=== PATIENT | male | born 1950 | race African-American/Black ===

== ENCOUNTER 2018-04-09 13:18 | Emergency (ER) | payer MEDICARE, MEDICAID ==
[~2018-04-09 13:18] MED LIST: ISOVUE-370 76%-LOCM 1 ML ONE
--- NOTE | 2018-04-09 14:08 | RAD ---
PORTABLE CHEST ONE VIEW: 04/09/2018 1:38 p.m. HISTORY: Dizziness after dialysis. Upper abdominal pain. COMPARISON: 03/18/2018 FINDINGS: The heart size is enlarged. There is mild prominence of the pulmonary vascularity without lobar cons olidation, pneumothoraces, stephy pulmonary edema, or large effusions. A vascular stent is seen in th e right axilla. POS: [facility]
[2018-04-09 14:09] LABS: Hemoglobin 10.6 g/dL (14.0-18.0); Mean Corpuscular HGB CONC 29.6 g/dL (32.0-36.0); Mean Corpuscular Hemoglobin 23.8 pg (27.0-31.0); Mean Corpuscular Volume 80.5 fL (78.0-98.0); Mean Platelet Volume 10.1 fL (7.4-10.4); Platelet Count 172 thou/uL (130-400); RBC Distribution Width 14.2 % (11.5-14.5); Red Blood Cell (RBC) Count 4.43 mill/uL (4.70-6.10); White Blood Cell (WBC) Count 4.1 thou/uL (4.8-10.8)
[2018-04-09 14:10] LABS: #Basophils 0.1 thou/uL (0.0-0.2); #Eosinphils 0.2 thou/uL (0.0-0.7); #Lymphocytes 1.2 thou/uL (1.20-3.40); #Monocytes 0.2 thou/uL (0.11-0.59); #Neutrophils 2.5 thou/uL (1.40-6.50); %Basophils 1.2 % (0.0-1.0); %Eosinophils 3.9 % (0.0-10.0); %Lymphocytes 29.8 % (21.0-51.0); %Monocytes 5.6 % (0.0-10.0); %Neutrophils 59.5 % (42.0-75.0)
[2018-04-09 14:26] LABS: Eosinophils 3 % (0-10); Hypochromia SLIGHT = 6-15 cells (100X) (0-5/hpf); Lymphocytes 35 % (21-51); MDiff Complete? YES; Monocytes 6 % (0-10); Neutrophil 56 % (42-75)
[2018-04-09 14:31] LABS: CKMB 0.7 ng/mL (0-6.6); Troponin I 0.033 ng/mL (< 0.028)
[2018-04-09 14:33] LABS: ALT (SGPT) 12 U/L (8-55); AST (SGOT) 14 U/L (5-34); Albumin 3.5 g/dL (3.4-4.8); Alkaline Phosphatase 108 U/L (40-150); Anion Gap 12 mmol/L (10-20); BUN (Urea Nitrogen) 15 mg/dL (8.4-25.7); Bilirubin, Total 0.4 mg/dL (0.2-1.2); Calc. Creatinine Clearance 0 mL/min (70-130); Calcium 8.6 mg/dL (7.8-10.44); Carbon Dioxide 27 mmol/L (23-31); Chloride 102 mmol/L (98-107); Estimated GFR-MDRD 18; Globulin 3.3 g/dL (2.4-3.5); Glucose 238 mg/dL (80-115); Potassium 4.1 mmol/L (3.5-5.1); Protein, Total 6.8 g/dL (5.8-8.1); Sodium 137 mmol/L (136-145)
--- NOTE | 2018-04-09 17:00 | CT ---
CTA CHEST WITH IV CONTRAST AND 3D POST PROCESSING: CTA ABDOMEN WITH IV CONTRAST AND 3D POST PROCESSING: HISTORY: Epigastric pain. Near syncope. Exam requested to evaluate for aortic dissection. FINDINGS: The thoracoabdominal aorta demonstrates good contrast opacification without evidence of aneurysm or d issection. Vascular calcifications are present. There is also good contrast opacification in the pu lmonary arterial vasculature without filling defects to suggest pulmonary embolism. No pleural or pericardial effusions are seen. No pneumothoraces or lung masses are identified. Ther e are mild patchy infiltrates in the left lower lung. There are dependent changes in the lung bases. There is a 15 mm cyst in the liver. No free air or free fluid is noted in the abdomen. Bilateral re nal cysts are present. The pancreas and adrenal glands are normal. There is a small calcified galls tone. There are degenerative changes in the thoracolumbar spine. IMPRESSION: 1. No CT evidence of aortic aneurysm/dissection or pulmonary embolism. 2. Cholelithiasis. 3. Mild infiltrates in the left lower lung. 4. Hepatic cyst. 5. Bilateral renal cysts. POS: [facility]
== END 2018-04-09 17:33 | disposition home or self-care (01) ==
LOC: ERS 13:18
DX: R55 Syncope and collapse (principal); I12.0 Hypertensive chronic kidney disease with stage 5 chronic kidney disease or end stage renal disease; N18.6 End stage renal disease; I48.91 Unspecified atrial fibrillation; E11.9 Type 2 diabetes mellitus without complications; Z99.2 Dependence on renal dialysis; F17.220 Nicotine dependence, chewing tobacco, uncomplicated; Z79.899 Other long term (current) drug therapy; Z79.82 Long term (current) use of aspirin
CPT/HCPCS: 36415; 71045; 71275; 80053; 82553; 83880; 84484; 85025; 93005

== ENCOUNTER 2018-04-22 10:42 | Emergency (ER) | payer MEDICARE, MEDICAID ==
[2018-04-22 12:01] LABS: Troponin I 0.037 ng/mL (< 0.028)
--- NOTE | 2018-04-22 12:22 | ULT ---
DOPPLER VENOUS ULTRASOUND OF THE LEFT UPPER EXTREMITY: Indication: History of left upper extremity tingling. Technique: Grayscale, color doppler, and spectral doppler images were obtained of the venous structur es of the left upper extremity and left internal jugular vein, left subclavian vein, left axillary ve in, left brachial vein, left basilic vein, left cephalic vein, left ulnar and left radial vein. FINDINGS: There is normal flow, compression, and augmentation seen within the venous structures left upper extr emity. IMPRESSION: No evidence of deep venous thrombosis within the left upper extremity. POS: [facility]
[2018-04-22] MEDS ORDERED: Carvedilol 25 MG TAB PO SCH (13:30)
--- NOTE | 2018-04-22 14:44 | ULT ---
DUPLEX ARTERIAL EVALUATION OF THE LEFT UPPER EXTREMITY: Date: 04/22/18 INDICATION: Left arm tingling. COMPARISON: None. FINDINGS: There is some mild atherosclerotic plaque involving the left common carotid artery. Appropriate anteg rade waveform seen over the left common carotid artery. Biphasic antegrade waveform is seen within th e left subclavian artery. Biphasic appearing waveform is seen within the left axillary artery, left b rachial artery, left radial artery, and left ulnar artery. IMPRESSION: Antegrade biphasic waveform seen within the arterial structures of the left upper extremity. POS: [facility]
[2018-04-22 14:47] LABS: Troponin I 0.046 ng/mL (< 0.028)
--- NOTE | 2018-04-23 16:53 | EKG ---
Test Reason : L ARM PAIN Blood Pressure : / mmHG Vent. Rate : 062 BPM Atrial Rate : 062 BPM P-R Int : 134 ms QRS Dur : 082 ms QT Int : 460 ms P-R-T Axes : 048 024 061 degrees QTc Int : 466 ms Normal sinus rhythm Normal ECG Confirmed by ARSLAN ALFARO, DR. Smyth ([id number]) on 04/23/2018 4:52:50 PM Referred By: DAIANA Confirmed By:DR. Haja MCDANIELS MD
== END 2018-04-22 16:04 | disposition home or self-care (01) ==
LOC: ERS 10:42
DX: R20.2 Paresthesia of skin (principal); I48.91 Unspecified atrial fibrillation; E11.9 Type 2 diabetes mellitus without complications; I10 Essential (primary) hypertension; F17.220 Nicotine dependence, chewing tobacco, uncomplicated; Z79.899 Other long term (current) drug therapy; Z79.82 Long term (current) use of aspirin
CPT/HCPCS: 36415; 93005; 93923

== ENCOUNTER 2018-04-26 22:30 | Emergency (ER) | payer MEDICARE, MEDICAID ==
--- NOTE | 2018-04-26 23:23 | RAD ---
RADIOGRAPH CHEST 1 VIEW: Date: 04/26/18 Time: 10:39 p.m. HISTORY: 68-year-old male with hypertension. COMPARISON: 04/22/18. FINDINGS: Borderline or mild cardiomegaly. No stephy pulmonary alveolar edema. Nonspecific increased attenuation in the retrocardiac portion of the left lower lobe. No pneumothorax. No major interval change. A por tion of a right brachial vascular stent is visualized again. IMPRESSION: 1. Borderline or mild cardiomegaly without overt congestive heart failure. 2. Nonspecific mild patchy pulmonary densities in the left lower lobe. CHRISTIAN [] POS: [facility]
[2018-04-26 23:54] LABS: Troponin I 0.041 ng/mL (< 0.028)
== END 2018-04-27 00:29 | disposition home or self-care (01) ==
LOC: ERS 22:30
DX: I10 Essential (primary) hypertension (principal); K59.00 Constipation, unspecified; I48.91 Unspecified atrial fibrillation; E11.9 Type 2 diabetes mellitus without complications; F17.220 Nicotine dependence, chewing tobacco, uncomplicated; Z79.899 Other long term (current) drug therapy; Z79.891 Long term (current) use of opiate analgesic; Z79.82 Long term (current) use of aspirin
CPT/HCPCS: 36415; 71045; 93005

== ENCOUNTER 2018-05-07 13:11 | Inpatient (IN) | payer MEDICARE, MEDICAID ==
[2018-05-07] MEDS ORDERED: Diltiazem 125 MG in Sodium Chloride 0.9% 100 ML IVPB SCH (14:00)
[2018-05-07] MEDS ORDERED: Diltiazem 125 MG/25 ML ONE (14:04)
[2018-05-07 14:17] LABS: #Eosinphils 0.1 thou/uL (0.0-0.7); #Lymphocytes 1.4 thou/uL (1.20-3.40); #Monocytes 0.3 thou/uL (0.11-0.59); #Neutrophils 3.8 thou/uL (1.40-6.50); %Basophils 0.6 % (0.0-1.0); %Eosinophils 2.5 % (0.0-10.0); %Lymphocytes 24.2 % (21.0-51.0); %Monocytes 5.1 % (0.0-10.0); %Neutrophils 67.7 % (42.0-75.0); Hemoglobin 10.9 g/dL (14.0-18.0); Mean Corpuscular HGB CONC 30.3 g/dL (32.0-36.0); Mean Corpuscular Hemoglobin 24.3 pg (27.0-31.0); Mean Corpuscular Volume 80.2 fL (78.0-98.0); Mean Platelet Volume 10.9 fL (7.4-10.4); Platelet Count 169 thou/uL (130-400); Red Blood Cell (RBC) Count 4.48 mill/uL (4.70-6.10); White Blood Cell (WBC) Count 5.6 thou/uL (4.8-10.8)
[2018-05-07 14:27] LABS: ALT (SGPT) Less than 7 U/L (8-55); AST (SGOT) 7 U/L (5-34); Albumin 3.5 g/dL (3.4-4.8); Alkaline Phosphatase 111 U/L (40-150); Anion Gap 14 mmol/L (10-20); BUN (Urea Nitrogen) 13 mg/dL (8.4-25.7); Bilirubin, Total 0.5 mg/dL (0.2-1.2); CK (CPK) 90 U/L (30-200); Calc. Creatinine Clearance 0 mL/min (70-130); Calcium 8.8 mg/dL (7.8-10.44); Carbon Dioxide 23 mmol/L (23-31); Chloride 102 mmol/L (98-107); Estimated GFR-MDRD 18; Globulin 3.3 g/dL (2.4-3.5); Glucose 200 mg/dL (80-115); Potassium 3.5 mmol/L (3.5-5.1); Protein, Total 6.8 g/dL (5.8-8.1); Sodium 135 mmol/L (136-145)
[2018-05-07 14:32] LABS: Troponin I 0.054 ng/mL (< 0.028)
[2018-05-07 17:01] VITALS: BMI 34.7
[2018-05-07] MEDS ORDERED: Dextrose 50% Abboject 50 ML SYRINGE SLOW IVP PRN (17:33)
[2018-05-07] MEDS ORDERED: Dextrose 5% in Water 1,000 ML IV PRN (17:33)
[2018-05-07] MEDS ORDERED: Ondansetron ODT 4 MG TAB PO PRN (17:33)
[2018-05-07] MEDS ORDERED: HumaLOG 300 UNITS/3 ML VIAL SC PRN ×2 (17:33)
[2018-05-07] MEDS ORDERED: Calcium Carbonate 500 MG ChewTAB PO PRN (17:33)
[2018-05-07] MEDS ORDERED: Acetaminophen 325 MG TAB PO PRN (17:33)
[2018-05-07] MEDS: Simvastatin 20 MG TAB PO SCH (21:26)
[2018-05-07] MEDS: Heparin 5,000 UNITS/ML VIAL SC SCH (21:26)
[2018-05-07] MEDS: Carvedilol 25 MG TAB PO SCH (21:27)
--- NOTE | 2018-05-07 22:01 | HP ---
PRIMARY CARE PHYSICIAN: Dr. Madsen. CHIEF COMPLAINT: Elevated blood pressure and heart rate and almost passed out. HISTORY OF PRESENT ILLNESS: Mr. Kramer is a very pleasant 68-year-old gentleman that has a history of end-stage renal disease on hemodialysis as well as hypertension, diabetes mellitus and one previous episode of atrial fibrillation about 2 months ago. He was on dialysis today when the dialysis was ju st about to be completed. About 30 minutes prior to completion, he started to feel dizzy and lighthe aded. He says that he came off the machine and his blood pressure and heart rate started to go up. The EMS noted or the medical van that he gets transferred on noted that his blood pressure was as hig h as 242/99, but then went down to around 170 to 180 systolic. The patient says that he waited for a minute after being taken off the machine. He still felt a bit weak, but he got in the van to be tra nsported home. He says that he was almost about four miles from his house when he started getting si ck and had to basically laid down in the seat. This was when they turned around and took him to the emergency room. When he got to the ER, he was found to be in atrial fibrillation with rapid ventricu lar response with a heart rate of around 130. He was started on Cardizem IV and actually while he wa s in the ER after only about an hour or so he converted back into sinus rhythm. He is being admitted for further evaluation. The patient denies any headache. He does complain of some headache off and on, but no shortness of breath, no nausea, no vomiting. He was recently diagnosed with newly detect ed atrial fibrillation back in February of this year. It was very short lived and was attributed to a respiratory infection that he was having at that time. He was started on Cardizem, but no anticoagul ation and discharged home. I reviewed the medications with him as well as called Dr. Madsen on t he phone and it appears as if the patient had been prescribed the Cartia XT, he did come for 1 hospit al followup, but did not get the Cartia XT refilled. It is unclear whether or not he had been actual ly taking it. REVIEW OF SYSTEMS: All systems were reviewed and are negative except for that mentioned in the histo ry of present illness. PAST MEDICAL HISTORY: Significant for end-stage renal disease, gout, hypertension, diabetes mellitus type 2, atrial fibrillation, and coronary artery disease. PAST SURGICAL HISTORY: He had the right first toe amputation. FAMILY HISTORY: No history of any inheritable diseases. SOCIAL HISTORY: He is single, has 3 children. He is a nonsmoker, nondrinker. He lives alone. His daughter Bowen kramer is his surrogate decision maker and he would like to be a [employer]. He normally gets around at home with a walker. ALLERGIES: PENICILLIN and he says IV DYE. MEDICATIONS: Include carvedilol 25 mg twice a day, Renvela 800 mg 3 tablets 3 times a day, naproxen p.r.n., simvastatin 10 mg daily, aspirin 81 mg daily, clonidine 0.1 mg daily, Zetia 10 mg daily, Sadaf Lax 17 grams daily, and Levemir insulin 50-55 units daily as well as a Humalog sliding scale and Cart ia XT 180 mg daily. However, unsure whether or not he has been taking this. PHYSICAL EXAMINATION: GENERAL: He is alert and oriented. He appears to be in no acute distress. He is well-developed and well-nourished. VITAL SIGNS: Currently his blood pressure is approximately 153/70, heart rate is in the 50s, respira tory rate of 16, and he is afebrile. HEENT: Pupils are equal, round, and reactive. Extraocular muscles are intact. His sclerae are anic teric. Throat: There is no erythema, no exudates. NECK: There is no adenopathy, no bruits. LUNGS: Clear to auscultation. There is no wheezing, no rales, no rhonchi. CARDIOVASCULAR: His heart rate is regular. There was a normal S1 and S2. There is no S3 or S4. No murmurs, clicks, no rubs. ABDOMEN: Obese, it is soft, it is nontender, nondistended. Positive for bowel sounds. There is no rebound, no guarding. EXTREMITIES: He has got trace pedal edema. There is no calf tenderness. There is trace edema, no j oint effusions or warmth. NEUROLOGICALLY: His cranial nerves II-XII are intact. Muscle strength is 5/5 in both the upper and lower extremities. SKIN/INTEGUMENT: There are no skin changes. No rash. He does have some hammertoe deformities that is on both feet and capillary refill is slightly diminished and his pulses are diminished in the dors john pedis and posterior tibial. LABORATORY DATA: EKG is atrial fibrillation, the heart rate is in the 120s to 128. He has some volt age criteria for LVH. This is by my reading. Lab work: Sodium is 135, potassium 3.5, chloride is 1 02, CO2 is 23, BUN of 13, creatinine of 4.1, glucose is 200. ProBNP was 1388. White blood cell coun t 5.6, hemoglobin 10.9, hematocrit is 35.9, platelet count is 169 and again conversation was made wit h the patient's primary care physician. ASSESSMENT: This is a pleasant 68-year-old gentleman who presents to the emergency room with atrial fibrillation with rapid ventricular response, which has quickly converted once again and he was sympt omatic with this. So therefore, 1. Atrial fibrillation. He will be monitored on telemetry. We will restart the Cardizem drip if ne eded and consider starting him on the Cartia XT once his heart rate comes above 50. We will also con [facility] to see what their recommendations are. On his last visit, he was not deemed a good c andidate for anticoagulation due to the very short and isolated nature of the atrial fibrillation; ho wever, since this is the second episode this may change. We will defer this up to our Cardiology col leagues or to his primary digital developer, Dr. Booker. 2. Hypertension. His blood pressure medications have been reconciled over the phone with Dr. Jaleesa shine. We will restart these including the carvedilol, Catapres, and Cartia XT and adjusted as needed . 3. Diabetes mellitus. We will continue his usual home medications including the Levemir and Humalog as well as a sliding scale insulin. 4. End-stage renal disease. We will need to consult his shared services manager for maintenance hemodialysis. 5. Coronary artery disease. This appears to be stable and no changes in medications indicated at th is time.
[2018-05-08] MEDS: hydrALAZINE 20 MG/ML VIAL SLOW IVP PRN (04:29)
[2018-05-08 06:20] LABS: Anion Gap 13 mmol/L (10-20); BUN (Urea Nitrogen) 19 mg/dL (8.4-25.7); Calc. Creatinine Clearance 22 mL/min (70-130); Calcium 8.1 mg/dL (7.8-10.44); Carbon Dioxide 24 mmol/L (23-31); Chloride 102 mmol/L (98-107); Estimated GFR-MDRD 13; Glucose 94 mg/dL (80-115); Potassium 3.5 mmol/L (3.5-5.1); Sodium 135 mmol/L (136-145)
[2018-05-08 06:23] LABS: #Eosinphils 0.2 thou/uL (0.0-0.7); #Lymphocytes 1.9 thou/uL (1.20-3.40); #Monocytes 0.4 thou/uL (0.11-0.59); %Basophils 0.5 % (0.0-1.0); %Eosinophils 4.3 % (0.0-10.0); %Lymphocytes 33.6 % (21.0-51.0); %Monocytes 6.8 % (0.0-10.0); %Neutrophils 54.8 % (42.0-75.0); Hemoglobin 10.4 g/dL (14.0-18.0); Mean Corpuscular HGB CONC 30.9 g/dL (32.0-36.0); Mean Corpuscular Hemoglobin 24.5 pg (27.0-31.0); Mean Corpuscular Volume 79.5 fL (78.0-98.0); Mean Platelet Volume 11.5 fL (7.4-10.4); Platelet Count 151 thou/uL (130-400); RBC Distribution Width 15.1 % (11.5-14.5); Red Blood Cell (RBC) Count 4.23 mill/uL (4.70-6.10); White Blood Cell (WBC) Count 5.5 thou/uL (4.8-10.8)
[2018-05-08] MEDS: Sevelamer Carbonate 800 MG TAB PO SCH ×3 (08:25→17:04)
[2018-05-08] MEDS: Carvedilol 25 MG TAB PO SCH ×2 (08:26→20:08)
[2018-05-08] MEDS: Heparin 5,000 UNITS/ML VIAL SC SCH ×3 (08:27→20:10)
[2018-05-08] MEDS ORDERED: Non-Formulary Item 1 EACH (Insulin Detemir [Levemir] 50 UNITS) SC SCH (09:00)
[2018-05-08] MEDS ORDERED: cloNIDine 0.2 MG TAB PO SCH (09:00)
[2018-05-08] MEDS: Insulin Glargine 50 UNITS in Pre-Filled Syringe SC SCH (10:20)
--- NOTE | 2018-05-08 11:54 | PDOC.PN ---
- Subjective Encounter Start Date: 05/08/18 Encounter Start Time: 11:52 Mr. Kramer was seen today in follow-up of AFIB and elevated blood pressure. He does not have any complaints this morning. He denies chest pain or shortness of breath. He denies feeling dizzy or lightheaded. - Objective Resuscitation Status: Resuscitation Status FULL:Full Resuscitation MAR Reviewed: Yes Vital Signs & Weight: Vital Signs (12 hours) Temp Pulse Resp BP Pulse Ox 05/08/18 08:15 97 05/08/18 07:28 98.1 F 62 18 192/88 H 97 05/08/18 05:45 188/77 H 05/08/18 03:50 182/70 H 05/08/18 03:30 97.7 F 52 L 16 188/84 H 100 Weight Weight 256 lb 8 oz I&O: 05/07/18 05/08/18 05/09/18 06:59 06:59 06:59 Intake Total 240 Output Total 0 Balance 240 Result Diagrams: 05/08/18 05:29 05/08/18 05:29 Additional Labs: Accuchecks 05/08/18 05/08/18 05/08/18 10:40 10:20 06:04 POC Glucose 180 H 162 H 89 05/07/18 20:34 POC Glucose 192 H Phys Exam - Physical Examination HEENT: PERRLA Respiratory: no wheezing, no rales, no rhonchi, clear to auscultation bilateral good air movement Cardiovascular: RRR, no significant murmur, no rub no gallop Gastrointestinal: soft, positive bowel sounds + mildly distended, tympanic to percussion Musculoskeletal: edema present trace pedal edema Dx/Plan (1) Atrial fibrillation with RVR Code(s): I48.91 - UNSPECIFIED ATRIAL FIBRILLATION Status: Acute (2) Hypertension Code(s): I10 - ESSENTIAL (PRIMARY) HYPERTENSION Status: Chronic (3) End stage renal disease on dialysis Code(s): N18.6 - END STAGE RENAL DISEASE; Z99.2 - DEPENDENCE ON RENAL DIALYSIS Status: Chronic (4) Diabetes mellitus type 2, insulin dependent Code(s): E11.9 - TYPE 2 DIABETES MELLITUS WITHOUT COMPLICATIONS; Z79.4 - HALFWAY (CURRENT) USE OF INSULIN Status: Chronic - Plan * Atrial Fibrillation- he has converted to sinus, and has been in sinus through the night- Continue Cardizem- oral. Echo has been ordered, and await recommendations from Cardiology * HTN- blood pressure is elevated- despite being placed back on his home medications- will add Hydralazine scheduled, and titrate * ESRD- his Die Cutter has been consulted- he appears euvlemic * DM- Blood glucose is stable .
[2018-05-08] MEDS ORDERED: hydrALAZINE 25 MG TAB PO SCH ×3 (12:00→17:00)
--- NOTE | 2018-05-08 14:14 | CON ---
DATE OF CONSULTATION: 05/08/2018 REASON FOR CONSULTATION: Atrial fibrillation with rapid ventricular response. PRIMARY RUBBERIZING MECHANIC: Cade Booker M.D. HISTORY OF PRESENT ILLNESS: Mr. Kramer is a very pleasant 68-year-old -[place] gentleman who comes to the hospital for near syncope and high blood pressure. He was admitted for this and was fou nd to be in atrial fibrillation RVR. His blood pressure on admission was 242/99. He was placed on a Cardizem drip and he converted back into sinus rhythm. He did something similar about a month ago a nd he was admitted for atrial fibrillation RVR in the setting of presyncope. He was started on dilti azem p.o. but apparently, he never took this. He was supposed to follow up with Dr. Booker to dis cuss possible anticoagulation, but this has not happened yet. Mr. Kramer tells me that he is very gracia d to get in. He otherwise currently has no other complaints except he sees that his blood pressure i s still high. PAST MEDICAL HISTORY: 1. End-stage renal disease, on hemodialysis Saturday, Saturday, Saturday. 2. Gout. 3. Hypertension. 4. Type 2 diabetes. 5. Paroxysmal atrial fibrillation. 6. Coronary artery disease, stent placement several years ago by Dr. Booker. PAST SURGICAL HISTORY: 1. Right first toe amputation. 2. Fistula placement. FAMILY HISTORY: Noncontributory. SOCIAL HISTORY: No alcohol, tobacco or drugs. OUTPATIENT MEDICATIONS: Include, 1. Carvedilol 25 mg b.i.d. 2. Renvela. 3. Naproxen p.r.n. 4. Simvastatin 10 mg at bedtime. 5. Aspirin 81 a day. 6. Clonidine 0.1 mg a day. 7. Zetia 10 mg daily. 8. MiraLax. 9. Levemir. 10. Humalog. 11. Diltiazem 180 mg a day. ALLERGIES: PENICILLIN and CONTRAST. REVIEW OF SYSTEMS: A 12-point review of systems was done and it is all negative unless stated in his tory of present illness. PHYSICAL EXAMINATION: VITAL SIGNS: Temperature 97.9, pulse 59, respiration rate 18, satting 97% on room air, blood pressur e 180/81. GENERAL: Awake, alert, oriented x3, in no distress. HEENT: Normocephalic, atraumatic. NECK: Supple. LUNGS: Clear. CARDIOVASCULAR: S1, S2, no S3, S4, no murmurs, no rubs. ABDOMEN: Soft, positive bowel sounds. EXTREMITIES: No edema. SKIN: Warm and dry. LABORATORY DATA: Laboratory work was reviewed. White count of 5.6, hemoglobin of 10.9, hematocrit o f 35 and platelet count of 169. Chemistries are unremarkable except for creatinine of 5.25, glucose is high at 180. BNP was 1388. Troponin has been in the indeterminate range at 0.04, similar to what has been in the past that, 0.04, 0.04, 0.04. IMAGING DATA: EKG was reviewed, AFib, RVR on admission, currently in sinus rhythm. ASSESSMENT AND PLAN: 1. Paroxysmal atrial fibrillation. 2. Poorly controlled hypertension. 3. End-stage renal disease. 4. Type 2 diabetes. PLAN: 1. He has a CHADS-VASc score of 3 and he has CHADS 2 score of 2, so in both scores he would be a can didate for full anticoagulation for stroke prophylaxis. He tells me the last time he fell down was a bout 5 years ago. He also tells me that he has been on Eliquis probably in the past. He feels there was a blood thinner and he was taken off of this about a year ago by Dr. Booker. He thinks becau se it was too strong, but he does not remember having any problem with bleeding at that time. He den ies any melena, hematochezia or hematemesis. No nosebleeds. He says that the most problems he gray nues to have is trying to stop his fistula from bleeding after dialysis. PLAN: 1. At this point, he would like to discuss with Dr. Booker whether or not to start anticoagulatio n again. I think he would be a candidate for this. If we think that he will not tolerate anticoagul ation due to bleeding on his fistula, he would then be a candidate for Watchman or Larait device as h is risk for stroke is high. 2. We will agree with addition of hydralazine for his regimen. Would up titrate fairly quickly as i s probably going to require quite a dose to control this. Would not increase the cardia any more as his heart rate is already in the upper 50s. Thank you for allowing me to participate in our patient. We will continue to follow. RECOMMENDATIONS: 1. Echocardiogram to be done. 2. He is a candidate for full anticoagulation. I will start Eliquis 2.5 mg twice a day. 3. He would like to discuss with Dr. Booker, his primary supervisor mill before this happens. 4. Blood pressure control, currently with the addition of p.o. hydralazine at 25 mg t.i.d. We will u p titrate as appropriate. 5. We will follow.
[2018-05-08] MEDS: hydrALAZINE 25 MG TAB PO SCH (20:08)
[2018-05-08] MEDS: Simvastatin 20 MG TAB PO SCH (20:09)
[2018-05-09] MEDS ORDERED: Heparin 10,000 UNITS/ 10 ML VIAL ONE (10:00)
[2018-05-09] MEDS: Sevelamer Carbonate 800 MG TAB PO SCH ×3 (12:13→16:00)
[2018-05-09] MEDS: Carvedilol 25 MG TAB PO SCH ×2 (12:13→20:44)
[2018-05-09] MEDS: Heparin 5,000 UNITS/ML VIAL SC SCH ×3 (12:14→20:45)
[2018-05-09] MEDS: hydrALAZINE 25 MG TAB PO SCH ×3 (12:14→20:45)
[2018-05-09 12:21] LABS: #Eosinphils 0.2 thou/uL (0.0-0.7); #Lymphocytes 1.1 thou/uL (1.20-3.40); #Monocytes 0.3 thou/uL (0.11-0.59); %Eosinophils 2.8 % (0.0-10.0); %Lymphocytes 19.1 % (21.0-51.0); %Monocytes 5.9 % (0.0-10.0); %Neutrophils 72.1 % (42.0-75.0); Anion Gap 12 mmol/L (10-20); BUN (Urea Nitrogen) 31 mg/dL (8.4-25.7); Calc. Creatinine Clearance 15 mL/min (70-130); Calcium 7.9 mg/dL (7.8-10.44); Carbon Dioxide 25 mmol/L (23-31); Chloride 100 mmol/L (98-107); Estimated GFR-MDRD 9; Glucose 179 mg/dL (80-115); Hemoglobin 9.3 g/dL (14.0-18.0); Mean Corpuscular HGB CONC 29.2 g/dL (32.0-36.0); Mean Corpuscular Volume 78.8 fL (78.0-98.0); Mean Platelet Volume 11.4 fL (7.4-10.4); Platelet Count 163 thou/uL (130-400); RBC Distribution Width 15.1 % (11.5-14.5); Red Blood Cell (RBC) Count 4.04 mill/uL (4.70-6.10); Sodium 133 mmol/L (136-145); White Blood Cell (WBC) Count 5.6 thou/uL (4.8-10.8)
[2018-05-09 12:22] LABS: HBSAg Index 0.16 S/CO (0-0.99); Hep B Surf Ag Non-Reactive S/CO (NonReactive)
[2018-05-09] MEDS: Insulin Glargine 50 UNITS in Pre-Filled Syringe SC SCH (15:01)
--- NOTE | 2018-05-09 15:20 | PDOC.CTH ---
Cardiology Progress Note - Subjective No new issues. - Objective Vital Signs Temp Pulse Pulse Pulse Pulse Resp BP 05/09/18 12:14 68 05/09/18 10:30 68 05/09/18 09:09 73 73 75 150/65 H 05/09/18 08:00 98.4 F 66 18 BP BP BP Pulse Ox 05/09/18 12:14 05/09/18 10:30 192/85 H 05/09/18 09:09 162/70 H 152/67 H 05/09/18 08:00 195/58 H 94 L Weight 256 lb 8 oz 05/08/18 05/09/18 05/10/18 06:59 06:59 06:59 Intake Total 240 750 Output Total 0 Balance 240 750 - Physical Examination General/Neuro: alert & oriented x3, NAD Neck: no JVD present Lungs: unlabored respirations Heart: RRR Abdomen: NT/ND Extremities: + edema B (trace) - Telemetry Telemetry Rhythm: NSR - Labs Result Diagrams: 05/09/18 10:45 05/09/18 10:45 Troponin/CKMB CK-MB (CK-2) 1.0 ng/mL (0-6.6) 05/07/18 13:54 Troponin I 0.054 ng/mL (< 0.028) H 05/07/18 13:54 - Assessment/Plan 1. Paroxysmal fib 2. ESRD 3. HTN 4. DMT2 PLAN: - Recommend rfull anticoagulation. He would like to discuss with his Primary assistant in nursing first Dr. Booker as he has been on Eliquis before and was taken off and he is not sure why. No bleeding issues as far as he remembers. - No new recs. - He may be discharged home any time from cardiac perspective. - Follow up with his primary assistant in nursing to decided on full anticoagulation. - Aspirin for now. - Continue Diltiazem. - Will sign off.
[2018-05-09] MEDS ORDERED: Diltiazem HCl 125 MG, Admixture Fee 1 EACH in Sodium Chloride 0.9% 100 ML IVPB SCH (19:15)
--- NOTE | 2018-05-09 20:40 | PDOC.PN ---
- Subjective Encounter Start Date: 05/09/18 Encounter Start Time: 10:30 Patient seen and examined for Afib. No CP/SOB. No new complaints. No overnight events - Objective Resuscitation Status: Resuscitation Status FULL:Full Resuscitation Vital Signs & Weight: Vital Signs (12 hours) Temp Pulse Pulse Pulse Pulse Resp BP 05/09/18 16:00 61 146/97 H 05/09/18 15:26 98.2 F 61 18 05/09/18 12:14 68 05/09/18 10:30 68 05/09/18 09:09 73 73 75 BP BP BP BP Pulse Ox 05/09/18 16:00 05/09/18 15:26 146/97 H 98 05/09/18 12:14 05/09/18 10:30 192/85 H 05/09/18 09:09 150/65 H 162/70 H 152/67 H Weight Weight 256 lb 8 oz I&O: 05/08/18 05/09/18 05/10/18 06:59 06:59 06:59 Intake Total 240 750 480 Output Total 0 4500 Balance 240 750 -4020 Result Diagrams: 05/09/18 10:45 05/09/18 10:45 Additional Labs: Accuchecks 05/09/18 05/09/18 05/08/18 17:14 05:48 20:44 POC Glucose 155 H 152 H 151 H Radiology Reviewed by me: No (Echo - normal EF) EKG Reviewed by me: Yes (Tele SR) Phys Exam - Physical Examination Constitutional: NAD Respiratory: no wheezing, no rhonchi Cardiovascular: RRR, no rub Gastrointestinal: soft, positive bowel sounds Musculoskeletal: no edema Dx/Plan - Plan DVT proph w/SCDs IMPRESSION: 1. Afib with RVR - now in SR 2. ESRD on dialysis 3. DM2 4. HTN PLAN: Cont Coreg/Cardizem with ASA - Patient undecided on full anticoag - wants to d/ w primary Cardiologiest Dialysis today Cont sliding scale and Lantus Cont other meds as below Review of Systems - Review of Systems Respiratory: negative: Cough, Dry, Shortness of Breath, Hemoptysis, SOB with Excertion, Pleuritic Pain, Sputum, Wheezing Cardiovascular: negative: chest pain, palpitations, orthopnea, paroxysmal nocturnal dyspnea, edema, light headedness, other - Medications/Allergies Allergies/Adverse Reactions: Allergies Allergy/AdvReac Type Severity Reaction Status Date / Time Penicillins Allergy Hives Verified 05/07/18 17:04 Medications: Current Medications Acetaminophen (Tylenol) 650 mg PO Q4H PRN PRN Reason: Headache/Fever/Mild Pain (1-3) Aspirin (Aspirin Chewable) 81 mg PO DAILY [facility] Last Admin: 05/09/18 12:13 Dose: Not Given Calcium Carbonate (Tums) 1,000 mg PO Q4H PRN PRN Reason: Heartburn or Indigestion Carvedilol (Coreg) 25 mg PO BID [facility] Last Admin: 05/09/18 12:13 Dose: Not Given Cholecalciferol (Vitamin D3) 2,000 units PO DAILY [facility] Last Admin: 05/09/18 12:14 Dose: Not Given Dextrose/Water (Dextrose 50%) 25 gm SLOW IVP PRN PRN PRN Reason: Hypoglycemia Diltiazem HCl (Cardizem Cd) 180 mg PO DAILY [facility] Last Admin: 05/09/18 12:14 Dose: Not Given Glucagon (Glucagon) 1 mg IM PRN PRN PRN Reason: Hypoglycemia Heparin Sodium (Porcine) (Heparin) 5,000 units SC TID [facility] Last Admin: 05/09/18 16:00 Dose: 5,000 units Hydralazine HCl (Apresoline) 10 mg SLOW IVP Q6H PRN PRN Reason: SBP > 180 or Diastolic > 100 Last Admin: 05/08/18 04:29 Dose: 10 mg Hydralazine HCl (Apresoline) 50 mg PO TID [facility] Last Admin: 05/09/18 16:00 Dose: 50 mg Dextrose/Water (D5w) 1,000 mls @ 0 mls/hr IV .Q0M PRN PRN Reason: Hypoglycemia Insulin Glargine 50 units/ (Miscellaneous Medication) 0.5 mls @ 0 mls/hr SC QAM [facility] Last Admin: 05/09/18 15:01 Dose: Not Given Diltiazem HCl 125 mg/Miscellaneous Medication 1 each/ Sodium Chloride 125 mls @ 5 mls/hr IVPB INF [facility]; Protocol Insulin Human Lispro (Humalog) 0 units SC .MODERATE SLIDING SC PRN PRN Reason: Moderate Correctional Scale Insulin Human Lispro (Humalog) 0 units SC .BEDTIME SLIDING SC PRN PRN Reason: Bedtime Correctional Scale Ondansetron HCl (Zofran Odt) 4 mg PO Q6H PRN PRN Reason: Nausea/Vomiting Sevelamer Carbonate (Renvela) 2,400 [address] TID-[facility] Last Admin: 05/09/18 16:00 Dose: 2,400 mg Simvastatin (Zocor) 10 mg PO QPM [facility] Last Admin: 05/08/18 20:09 Dose: 10 mg
[2018-05-09] MEDS: Simvastatin 20 MG TAB PO SCH (20:45)
[2018-05-10] MEDS: Carvedilol 25 MG TAB PO SCH ×2 (07:42→21:48)
[2018-05-10] MEDS: hydrALAZINE 25 MG TAB PO SCH ×3 (07:49→21:49)
[2018-05-10] MEDS: Insulin Glargine 50 UNITS in Pre-Filled Syringe SC SCH (08:53)
[2018-05-10] MEDS: Sevelamer Carbonate 800 MG TAB PO SCH ×3 (08:53→17:51)
--- NOTE | 2018-05-10 19:07 | PDOC.PN ---
- Subjective Encounter Start Date: 05/10/18 Encounter Start Time: 09:00 Patient seen and examined for Afib. Developed Afib with RVR last night - lasted for 1 hour - converted spont to SR.. No new complaints. - Objective Resuscitation Status: Resuscitation Status FULL:Full Resuscitation MAR Reviewed: Yes Vital Signs & Weight: Vital Signs (12 hours) Temp Pulse Resp BP BP Pulse Ox 05/10/18 16:13 98.5 F 59 L 18 138/63 96 05/10/18 12:55 98.3 F 62 18 151/63 H 97 05/10/18 08:45 70 18 156/69 H 05/10/18 07:53 99 F 139 H 20 183/95 H 96 Weight Weight 253 lb I&O: 05/09/18 05/10/18 05/11/18 06:59 06:59 06:59 Intake Total 750 480 733 Output Total 4500 0 Balance 750 -4020 733 Result Diagrams: 05/09/18 10:45 05/09/18 10:45 Additional Labs: Accuchecks 05/10/18 05/10/18 05/09/18 11:19 05:34 20:24 POC Glucose 227 H 127 H 130 H EKG Reviewed by me: Yes (Tele SR) Phys Exam - Physical Examination Constitutional: NAD Respiratory: no wheezing, no rhonchi Cardiovascular: RRR, no rub Gastrointestinal: soft, non-tender, positive bowel sounds Musculoskeletal: no edema Neurological: moves all 4 limbs Dx/Plan - Plan DVT proph w/SCDs IMPRESSION: 1. Afib with RVR - now in SR 2. ESRD on dialysis 3. DM2 4. HTN 5. Other issues per previous notes PLAN: Case d/w Cardiology - Will increase Cardizem to 120 mg BID Cont Coreg Cont ASA (Patient undecided on full anticoag - wants to d/w primary Child Welfare Counselor ) Cont sliding scale / Lantus Cont other meds as below Monitor overnight Review of Systems - Review of Systems Cardiovascular: negative: chest pain, palpitations, orthopnea, paroxysmal nocturnal dyspnea, edema, light headedness, other Gastrointestinal: negative: Nausea, Vomiting, Abdominal Pain, Diarrhea, Constipation, Melena, Hematochezia, Other - Medications/Allergies Allergies/Adverse Reactions: Allergies Allergy/AdvReac Type Severity Reaction Status Date / Time Penicillins Allergy Hives Verified 05/07/18 17:04 Medications: Current Medications Acetaminophen (Tylenol) 650 mg PO Q4H PRN PRN Reason: Headache/Fever/Mild Pain (1-3) Aspirin (Aspirin Chewable) 81 mg PO DAILY [facility] Last Admin: 05/10/18 07:50 Dose: 81 mg Calcium Carbonate (Tums) 1,000 mg PO Q4H PRN PRN Reason: Heartburn or Indigestion Carvedilol (Coreg) 25 mg PO BID [facility] Last Admin: 05/10/18 07:42 Dose: 25 mg Cholecalciferol (Vitamin D3) 2,000 units PO DAILY [facility] Last Admin: 05/10/18 07:50 Dose: 2,000 units Dextrose/Water (Dextrose 50%) 25 gm SLOW IVP PRN PRN PRN Reason: Hypoglycemia Diltiazem HCl (Cardizem Cd) 120 mg PO BID [facility] Glucagon (Glucagon) 1 mg IM PRN PRN PRN Reason: Hypoglycemia Hydralazine HCl (Apresoline) 10 mg SLOW IVP Q6H PRN PRN Reason: SBP > 180 or Diastolic > 100 Last Admin: 05/08/18 04:29 Dose: 10 mg Hydralazine HCl (Apresoline) 50 mg PO TID [facility] Last Admin: 05/10/18 15:19 Dose: 50 mg Dextrose/Water (D5w) 1,000 mls @ 0 mls/hr IV .Q0M PRN PRN Reason: Hypoglycemia Insulin Glargine 50 units/ (Miscellaneous Medication) 0.5 mls @ 0 mls/hr SC QAM [facility] Last Admin: 05/10/18 08:53 Dose: 0.5 mls Insulin Human Lispro (Humalog) 0 units SC .MODERATE SLIDING SC PRN PRN Reason: Moderate Correctional Scale Last Admin: 05/10/18 12:47 Dose: 4 units Insulin Human Lispro (Humalog) 0 units SC .BEDTIME SLIDING SC PRN PRN Reason: Bedtime Correctional Scale Ondansetron HCl (Zofran Odt) 4 mg PO Q6H PRN PRN Reason: Nausea/Vomiting Sevelamer Carbonate (Renvela) 2,400 [address] TID-[facility] Last Admin: 05/10/18 17:51 Dose: 2,400 mg Simvastatin (Zocor) 10 mg PO QPM [facility] Last Admin: 05/09/18 20:45 Dose: 10 mg
[2018-05-10] MEDS: Simvastatin 20 MG TAB PO SCH (21:49)
[2018-05-11] MEDS: Sevelamer Carbonate 800 MG TAB PO SCH ×3 (07:55→16:27)
[2018-05-11] MEDS: hydrALAZINE 25 MG TAB PO SCH ×4 (07:55→20:29)
[2018-05-11] MEDS: Carvedilol 25 MG TAB PO SCH ×2 (07:56→20:29)
[2018-05-11] MEDS: Insulin Glargine 50 UNITS in Pre-Filled Syringe SC SCH (10:43)
[2018-05-11] MEDS: hydrALAZINE 20 MG/ML VIAL SLOW IVP PRN (11:18)
[2018-05-11] MEDS: Simvastatin 20 MG TAB PO SCH (20:30)
--- NOTE | 2018-05-11 21:32 | PDOC.PN ---
- Subjective Encounter Start Date: 05/11/18 Encounter Start Time: 09:00 Patient seen and examined for Afib with RVR. No new episodes of RVR. No new complaints. No overnight events - Objective Resuscitation Status: Resuscitation Status FULL:Full Resuscitation MAR Reviewed: Yes Vital Signs & Weight: Vital Signs (12 hours) Temp Pulse Resp BP BP BP Pulse Ox 05/11/18 20:29 66 146/64 H 05/11/18 20:28 66 146/64 H 05/11/18 16:25 98.7 F 62 16 161/70 H 100 05/11/18 14:54 97.9 F 57 L 18 189/84 H 96 05/11/18 12:00 97.8 F 18 96 05/11/18 11:57 57 L 182/74 H 05/11/18 11:18 67 177/74 H Weight Weight 252 lb I&O: 05/10/18 05/11/18 05/12/18 06:59 06:59 06:59 Intake Total 480 733 Output Total 4500 0 Balance -4020 733 Result Diagrams: 05/09/18 10:45 05/09/18 10:45 Additional Labs: Accuchecks 05/11/18 05/11/18 05/11/18 20:22 16:32 15:38 POC Glucose 153 H 103 52 L* 05/11/18 05/11/18 10:39 05:52 POC Glucose 154 H 83 Phys Exam - Physical Examination Constitutional: NAD Respiratory: no wheezing, no rhonchi Cardiovascular: RRR, no rub Gastrointestinal: soft, non-tender, positive bowel sounds Musculoskeletal: no edema Dx/Plan - Plan DVT proph w/SCDs IMPRESSION: 1. Afib with RVR - now in SR 2. ESRD on dialysis 3. DM2 4. HTN - uncontrolled - BP 190s 5. Other issues per previous notes PLAN: Cont Cardizem to 120 mg BID Cont Coreg/Hydralazine - Will increase Hydralazine dose if BP remains elevated. Cont ASA (Patient undecided on full anticoag - wants to d/w primary Director Consumer ) Cont sliding scale / Lantus Cont other meds as below DC later today or in AM if BP improves Review of Systems - Review of Systems Respiratory: negative: Cough, Dry, Shortness of Breath, Hemoptysis, SOB with Excertion, Pleuritic Pain, Sputum, Wheezing Cardiovascular: negative: chest pain, palpitations, orthopnea, paroxysmal nocturnal dyspnea, edema, light headedness, other - Medications/Allergies Allergies/Adverse Reactions: Allergies Allergy/AdvReac Type Severity Reaction Status Date / Time Penicillins Allergy Hives Verified 05/07/18 17:04 Medications: Current Medications Acetaminophen (Tylenol) 650 mg PO Q4H PRN PRN Reason: Headache/Fever/Mild Pain (1-3) Aspirin (Aspirin Chewable) 81 mg PO DAILY [facility] Last Admin: 05/11/18 07:56 Dose: 81 mg Calcium Carbonate (Tums) 1,000 mg PO Q4H PRN PRN Reason: Heartburn or Indigestion Carvedilol (Coreg) 25 mg PO BID [facility] Last Admin: 05/11/18 20:29 Dose: 25 mg Cholecalciferol (Vitamin D3) 2,000 units PO DAILY [facility] Last Admin: 05/11/18 07:55 Dose: 2,000 units Dextrose/Water (Dextrose 50%) 25 gm SLOW IVP PRN PRN PRN Reason: Hypoglycemia Diltiazem HCl (Cardizem Cd) 120 mg PO BID [facility] Last Admin: 05/11/18 20:28 Dose: 120 mg Glucagon (Glucagon) 1 mg IM PRN PRN PRN Reason: Hypoglycemia Hydralazine HCl (Apresoline) 10 mg SLOW IVP Q6H PRN PRN Reason: SBP > 180 or Diastolic > 100 Last Admin: 05/11/18 11:18 Dose: 10 mg Hydralazine HCl (Apresoline) 50 mg PO QID [facility] Last Admin: 05/11/18 20:29 Dose: 50 mg Dextrose/Water (D5w) 1,000 mls @ 0 mls/hr IV .Q0M PRN PRN Reason: Hypoglycemia Insulin Glargine 35 units/ (Miscellaneous Medication) 0.35 mls @ 0 mls/hr SC QAM [facility] Insulin Human Lispro (Humalog) 0 units SC .MODERATE SLIDING SC PRN PRN Reason: Moderate Correctional Scale Last Admin: 05/10/18 12:47 Dose: 4 units Insulin Human Lispro (Humalog) 0 units SC .BEDTIME SLIDING SC PRN PRN Reason: Bedtime Correctional Scale Ondansetron HCl (Zofran Odt) 4 mg PO Q6H PRN PRN Reason: Nausea/Vomiting Sevelamer Carbonate (Renvela) 2,400 mg PO TID-[facility] Last Admin: 05/11/18 16:27 Dose: 2,400 mg Simvastatin (Zocor) 10 mg PO QPM [facility] Last Admin: 05/11/18 20:30 Dose: 10 mg
[2018-05-12] MEDS ORDERED: Diltiazem HCl 125 MG, Admixture Fee 1 EACH in Sodium Chloride 0.9% 100 ML IVPB SCH (11:15)
[2018-05-12] MEDS: Insulin Glargine 35 UNITS in Pre-Filled Syringe 1 EACH SC SCH (12:32)
[2018-05-12] MEDS: Sevelamer Carbonate 800 MG TAB PO SCH ×3 (12:33→16:34)
[2018-05-12] MEDS: Carvedilol 25 MG TAB PO SCH ×3 (12:33→21:05)
[2018-05-12] MEDS: hydrALAZINE 25 MG TAB PO SCH ×4 (12:33→21:05)
[2018-05-12] MEDS ORDERED: Diltiazem 125 MG in Sodium Chloride 0.9% 100 ML IVPB SCH (14:15)
--- NOTE | 2018-05-12 14:16 | PDOC.PN ---
- Subjective Encounter Start Date: 05/12/18 Encounter Start Time: 14:13 Subjective: no palpatations, etc - Objective Resuscitation Status: Resuscitation Status FULL:Full Resuscitation MAR Reviewed: Yes Vital Signs & Weight: Vital Signs (12 hours) Temp Pulse Resp BP BP Pulse Ox 05/12/18 13:41 135 H 05/12/18 12:33 119 H 05/12/18 12:01 98.7 F 119 H 17 148/73 H 97 05/12/18 07:40 98.4 F 67 18 161/75 H 96 05/12/18 03:33 98.2 F 62 19 147/77 H 93 L Weight Weight 258 lb 8 oz I&O: 05/11/18 05/12/18 05/13/18 06:59 06:59 06:59 Intake Total 733 800 Output Total 0 0 Balance 733 800 Result Diagrams: 05/09/18 10:45 05/09/18 10:45 Additional Labs: Accuchecks 05/12/18 05/12/18 05/12/18 12:44 12:14 05:34 POC Glucose 165 H 57 L* 134 H 05/12/18 05/11/18 05/11/18 01:00 20:22 16:32 POC Glucose 51 L* 153 H 103 05/11/18 15:38 POC Glucose 52 L* Phys Exam - Physical Examination Neck: no JVD Respiratory: clear to auscultation bilateral Cardiovascular: no significant murmur, irregular tachy Gastrointestinal: soft, positive bowel sounds Musculoskeletal: no edema Dx/Plan (1) Atrial fibrillation with RVR Code(s): I48.91 - UNSPECIFIED ATRIAL FIBRILLATION Status: Acute (2) Diabetes mellitus type 2, insulin dependent Code(s): E11.9 - TYPE 2 DIABETES MELLITUS WITHOUT COMPLICATIONS; Z79.4 - CUSTODIAL (CURRENT) USE OF INSULIN Status: Chronic (3) End stage renal disease on dialysis Code(s): N18.6 - END STAGE RENAL DISEASE; Z99.2 - DEPENDENCE ON RENAL DIALYSIS Status: Chronic (4) Hypertension Code(s): I10 - ESSENTIAL (PRIMARY) HYPERTENSION Status: Chronic - Plan AF with rate 150+/- -: started bollus plus infusion of iv cardizem -: [id number], still fastat 130-150, increased cardizem to 10/hr * .
--- NOTE | 2018-05-12 16:04 | PDOC.EVN ---
Event Note - Event Note Event Note: back in [facility], Dc ching alaniz
[2018-05-12] MEDS: Simvastatin 20 MG TAB PO SCH (21:06)
--- NOTE | 2018-05-13 08:04 | DIS ---
DATE OF ADMISSION: 05/07/2018 DATE OF DISCHARGE: 05/13/2018 PRIMARY CARE PROVIDER: Milagros Madsen M.D. PRIMARY CARE CORPORATE PARALEGAL: Cade Booker M.D. DISCHARGE DISPOSITION: Discharged home. FINAL DIAGNOSES: Atrial fibrillation with rapid ventricular response; diabetes mellitus, type 2, ins ulin-dependent; end-stage renal disease, on hemodialysis; hypertension; coronary artery disease. DISCHARGE MEDICATIONS: Zetia 10 mg a day, Zocor 10 mg a day, Renagel 2400 mg t.i.d. with meals, brenna min D3 daily, Levemir 50 units subcutaneously q.a.m., Coreg 25 mg p.o. b.i.d., aspirin 81 mg p.o. b.i .d., hydralazine 50 mg p.o. q.i.d., diltiazem 120 mg p.o. b.i.d. ALLERGIES: PENICILLIN, causes hives. DIET: Diabetic. CODE STATUS: FULL. PENDING AT THE TIME OF DISCHARGE: Nothing. CONSULTATIONS: Dr. Francisco Jain, Cardiology; Dr. Puneet Best, Nephrology. PROCEDURES: Hemodialysis during hospital stay. HOSPITAL COURSE: Patient was admitted with elevated blood pressure, atrial fibrillation, rapid ventr icular response around 130. He was started on IV Cardizem. His initial laboratory revealed sodium 1 35, potassium 3.5, CO2 of 23, BUN 13, creatinine 4.11. Blood sugar 200. Troponin 0.05. Patient was seen in consult. CBC revealed 10.9 grams of hemoglobin, platelet count of 169,000, white cell count of 5.6. The patient was seen in consultation by Dr. Francisco Jain, 05/08/2018. His diltiazem was increased from 180 a day to 240 a day in split doses. His clonidine was discontinued. He was put o n hydralazine in place. It was recommended to him that he undergo anticoagulation with Eliquis. He stated he had been on it before. His composition stone applicator had taken him off of it, and he did not wish to go back on it until he visited with his composition stone applicator. The patient underwent hemodialysis on a 3 times a week basis while he was here. The day before discharge, he was doing well at hemodialysis and had an episode of atrial fibrillation with rapid ventricular response and was treated with some IV diltia zem and eventually converted to regular sinus rhythm currently. He is asymptomatic. Cardiorespirato ry exam is unremarkable. Pulse is 62 and regular, blood pressure is 164/72, previous 134/64. He is being discharged on current medications to follow up with his PCP in 1 week. He has been advised to see his composition stone applicator as soon as possible to discuss anticoagulation. He is to keep his Saturday, , Saturday hemodialysis appointments.
[2018-05-13] MEDS: Sevelamer Carbonate 800 MG TAB PO SCH (08:13)
[2018-05-13] MEDS: hydrALAZINE 25 MG TAB PO SCH (08:13)
[2018-05-13] MEDS: Carvedilol 25 MG TAB PO SCH (08:15)
[2018-05-13] MEDS: Insulin Glargine 35 UNITS in Pre-Filled Syringe 1 EACH SC SCH (08:16)
[2018-05-13 10:59] VITALS: BP 176/82; TEMP 97.8
== END 2018-05-13 12:11 | disposition home or self-care (01) | DRG 308 ==
LOC: ERS 13:11 → 2NO 15:09
PROVIDERS: ADMIT Internal Medicine; ATTEND Internal Medicine
PROC: 5A1D70Z Performance of Urinary Filtration, Intermittent, Less than 6 Hours Per Day (ICD-10-PCS; principal; 2018-05-07)
DX: I48.0 Paroxysmal atrial fibrillation (principal); N18.6 End stage renal disease; I12.0 Hypertensive chronic kidney disease with stage 5 chronic kidney disease or end stage renal disease; E11.22 Type 2 diabetes mellitus with diabetic chronic kidney disease; Z99.2 Dependence on renal dialysis; I25.10 Atherosclerotic heart disease of native coronary artery without angina pectoris; Z79.4 Long term (current) use of insulin; Z88.0 Allergy status to penicillin; Z95.5 Presence of coronary angioplasty implant and graft; Z89.411 Acquired absence of right great toe; M10.9 Gout, unspecified; Z79.899 Other long term (current) drug therapy; Z79.82 Long term (current) use of aspirin; Z91.041 Radiographic dye allergy status
CPT/HCPCS: 36415; 36416; 80048; 80053; 82553; 83880; 84484; 85025; 87340; 90471; 90662; 90935; 93005; 93306; 96365; 96376; G0008; G0257; G8978-GP-CJ; G8979-GP-CJ; G8980-GP-CJ; G8987-GO-CI; G8988-GO-CJ; J0360; J1644; J7050; Q0162

== ENCOUNTER 2018-05-30 22:13 | Inpatient (IN) | payer MEDICARE, MEDICAID ==
[2018-05-30] MEDS ORDERED: Fentanyl 100 MCG/2 ML VIAL ONE (22:39)
--- NOTE | 2018-05-30 22:58 | RAD ---
AP VIEW CHEST: 05/30/18 HISTORY: Left sided chest pain. AP view chest is obtained on 05/30/18. COMPARISON: Comparison made to previous exam from 04/26/18. AP view chest demonstrates cardiomegaly. Calcification of the aorta is seen. Mild pulmonary vascular congestion is seen. A right upper extremity endovascular stent is in place. IMPRESSION: Cardiomegaly and pulmonary vascular congestion. POS: ROLANDO
[2018-05-30 22:59] LABS: Hemoglobin 10.8 g/dL (14.0-18.0); Lymphocytes 29 % (21-51); MDiff Complete? YES; Mean Corpuscular HGB CONC 29.7 g/dL (32.0-36.0); Mean Corpuscular Hemoglobin 24.3 pg (27.0-31.0); Mean Corpuscular Volume 81.8 fL (78.0-98.0); Monocytes 7 % (0-10); Neutrophil 64 % (42-75); PLT Morphology Comment Appears Adequate; Platelet Count 210 thou/uL (130-400); RBC Distribution Width 15.6 % (11.5-14.5); Red Blood Cell (RBC) Count 4.45 mill/uL (4.70-6.10); White Blood Cell (WBC) Count 9.1 thou/uL (4.8-10.8)
[2018-05-30 23:08] LABS: ALT (SGPT) 28 U/L (8-55); AST (SGOT) 28 U/L (5-34); Albumin 3.4 g/dL (3.4-4.8); Alkaline Phosphatase 113 U/L (40-150); Anion Gap 11 mmol/L (10-20); BUN (Urea Nitrogen) 15 mg/dL (8.4-25.7); Bilirubin, Total 0.2 mg/dL (0.2-1.2); CK (CPK) 144 U/L (30-200); Calc. Creatinine Clearance 0 mL/min (70-130); Calcium 8.3 mg/dL (7.8-10.44); Carbon Dioxide 24 mmol/L (23-31); Chloride 104 mmol/L (98-107); Estimated GFR-MDRD 13; Globulin 2.9 g/dL (2.4-3.5); Glucose 188 mg/dL (80-115); Lipase 41 U/L (8-78); Protein, Total 6.3 g/dL (5.8-8.1); Sodium 136 mmol/L (136-145)
[2018-05-30 23:12] LABS: CKMB 1.6 ng/mL (0-6.6)
[2018-05-30 23:14] LABS: Potassium 2.9 mmol/L (3.5-5.1)
[2018-05-30 23:16] LABS: Troponin I 1.163 ng/mL (< 0.028)
[2018-05-30] MEDS ORDERED: Enoxaparin Sodium 100 MG/ML SYRINGE ONE (23:32)
[2018-05-31] MEDS ORDERED: Ondansetron ODT 4 MG TAB SL PRN (00:20)
[2018-05-31] MEDS ORDERED: Ondansetron PF 4 MG/2 ML Vial IVP PRN (00:20)
[2018-05-31 00:36] VITALS: BMI 32.1
[2018-05-31] MEDS ORDERED: Acetaminophen 325 MG TAB PO PRN (01:38)
[2018-05-31] MEDS ORDERED: Dextrose 50% Abboject 50 ML SYRINGE SLOW IVP PRN (01:38)
[2018-05-31] MEDS ORDERED: Dextrose 5% in Water 1,000 ML IV PRN (01:38)
[2018-05-31] MEDS ORDERED: HumaLOG 300 UNITS/3 ML VIAL SC PRN ×2 (01:38)
[2018-05-31 02:26] LABS: Troponin I 1.241 ng/mL (< 0.028)
[2018-05-31] MEDS: Heparin 25,000 units/D5W 500 ML IV SCH (03:36)
[2018-05-31 04:12] LABS: Hemoglobin 10.9 g/dL (14.0-18.0); Lymphocytes 36 % (21-51); MDiff Complete? YES; Mean Corpuscular HGB CONC 30.1 g/dL (32.0-36.0); Mean Corpuscular Hemoglobin 24.6 pg (27.0-31.0); Mean Corpuscular Volume 81.9 fL (78.0-98.0); Mean Platelet Volume 10.1 fL (7.4-10.4); Monocytes 6 % (0-10); Neutrophil 58 % (42-75); PLT Morphology Comment Appears Adequate; Platelet Count 204 thou/uL (130-400); RBC Distribution Width 15.6 % (11.5-14.5); Red Blood Cell (RBC) Count 4.41 mill/uL (4.70-6.10); White Blood Cell (WBC) Count 9.9 thou/uL (4.8-10.8)
[2018-05-31 04:13] LABS: Albumin 3.3 g/dL (3.4-4.8); Anion Gap 12 mmol/L (10-20); BUN (Urea Nitrogen) 17 mg/dL (8.4-25.7); BUN/Creatinine Ratio 3.11; Calc. Creatinine Clearance 19 mL/min (70-130); Calcium 8.2 mg/dL (7.8-10.44); Carbon Dioxide 25 mmol/L (23-31); Chloride 105 mmol/L (98-107); Estimated GFR-MDRD 13; Glucose 172 mg/dL (80-115); Potassium 3.2 mmol/L (3.5-5.1); Sodium 139 mmol/L (136-145)
[2018-05-31 04:18] LABS: Phosphorus 1.4 mg/dL (2.3-4.7)
[2018-05-31] MEDS ORDERED: Potassium Phosphate 15 MMOL in Sodium Chloride 0.9% 250 ML 250 ML IVPB SCH (05:00)
--- NOTE | 2018-05-31 05:41 | HP ---
DATE OF ADMISSION: 05/31/2018 CHIEF COMPLAINT: Chest pain. HISTORY OF PRESENT ILLNESS: This is a 68-year-old male with past medical history of atrial fibrillation, diabetes mellitus type 2, hypertension, end- stage renal disease on hemodialysis on Saturday, Wednesdays, and Fridays, presented with left-sided chest pain. Patient was recently admitted to the hospital on 05/07/2018 and was discharged on 05/13/2018 for atrial fibrillation with rapid ventricular response, diabetes mellitus type 2, and patient states that his left-sided chest pain that has been ongoing for the past couple of days. Patient stated that the pain is stabbing in nature and nothing seemed to make the pain better. At this point, patient says that the pain has subsided quite a bit compared to before when the pain came on in the morning. Of note, patient has been seen by truck bench mechanic in the past couple of weeks. Patient had an echo done during his hospital visit and his left ventricular ejection fraction was estimated to be 50%-55%. The left atrium was moderately dilated and the patient had mild mitral regurgitation, mild tricuspid regurgitations. Dr. Jain saw the patient as well and we saw the patient as well and started the patient on Eliquis 2.5 mg b.i.d. due to patient having atrial fibrillation with RVR. At this point, patient denies any fever, nausea, vomiting, palpitations, abdominal pain rather admits to chest discomfort and shortness of breath. REVIEW OF SYSTEMS: Positive for chest pain, shortness of breath, otherwise as documented in the HPI. All other systems were reviewed and are negative. PAST MEDICAL HISTORY: Significant for end-stage renal disease on hemodialysis on Saturday, Wednesdays, and Fridays; gout; hypertension; diabetes mellitus, type 2; atrial fibrillation; and coronary artery disease, status post stents. PAST SURGICAL HISTORY: Right first toe amputation, status post stents. FAMILY HISTORY: Reviewed and noncontributory to this visit. SOCIAL HISTORY: Patient is single, has 3 children. Nonsmoker, nondrinker. Patient lives at home alone. His daughter, Bowen Nash is a surrogate decision maker. ALLERGIES: Patient is allergic to PENICILLIN and IV DYEs. MEDICATIONS: Patient is on carvedilol 25 mg b.i.d., Renvela 800 mg t.i.d., naproxen p.r.n., Simvastatin 10 mg daily, aspirin 81, clonidine 0.1 mg daily, Zetia 10 mg daily, Levemir 55 units daily. PHYSICAL EXAMINATION: GENERAL: Patient is alert, oriented x3, not in acute distress. Patient is able to speak in full sentences. Patient is seen lying in bed comfortably. VITAL SIGNS: Blood pressure is 108/57, pulse of 68, respiratory rate of 22, O2 saturation of 98. HEENT: Normocephalic, atraumatic. Pupils are equally round and reactive to light. Extraocular movements are intact. No scleral icterus, no conjuctivae hemorrhage. NECK: Full range of motion. Trachea is midline. Supple. LUNGS: Clear to auscultation bilaterally. No wheezing, no rales, no rhonchi is appreciated. CARDIOVASCULAR: S1, S2. Regular rate and rhythm. No murmurs, no gallops or rubs. ABDOMEN: Obese, soft, nontender, nondistended. Positive bowel sounds in all quadrant. EXTREMITIES: 5/5 upper extremities and 5/5 lower extremity strength. No edema noted. No tenderness. NEUROLOGIC: Cranial nerves II through XII grossly intact. No neurological deficits noted. SKIN: Warm, dry, and intact. IMAGING: Chest x-ray shows cardiomegaly and pulmonary vascular congestion. EKG shows sinus rhythm with a rate of 65. EMERGENCY DEPARTMENT COURSE: Patient received Lovenox 1 mg/kg and fentanyl 100 mcg. LABORATORY DATA: WBC is 9.1, hemoglobin is 10.8, hematocrit is 36.4, platelets is 210, MCV is 81, RDW is 15. Sodium is 136, potassium is 2.9, chloride is 104 , carbon dioxide 24, anion gap of 11, BUN is 15, creatinine is 5.23. AST 28, ALT 28. Troponin is 1.16. BNP is 477, lipase is 41. ASSESSMENT AND PLAN: A 58-year-old male presenting with: 1. Chest pain due to non-ST elevation myocardial infarction. At this point, patient's troponin is 1.163. Patient has been started on Lovenox therapeutic. We will continue patient on his aspirin, Plavix, beta juan. We will give oxygenation. We will also continue patient on statins. Cardiology has been consulted. We will follow up with Cardiology. Patient is going to be admitted to the [facility]. 2. Hypokalemia. Patient is going to be given potassium. We will follow up on patient's electrolytes in the a.m. 3. Anemia, normocytic anemia most likely due to chronic inflammation. We will continue to monitor the patient. Patient will benefit from iron pills. 4. End-stage renal disease on hemodialysis. We will continue patient on his current management. 5. Diabetes mellitus, type 2. Continue patient on his home medications and insulin sliding scale. 6. Hypertension, controlled at this time. We will continue patient on current management. 7. Atrial fibrillation. We will continue patient on current management. 8. Chronic coronary artery disease, status post stents. We will continue patient on current management. Cardiology has been consulted. We will follow up truck bench mechanic's recommendation. 9. Deep venous thrombosis and gastrointestinal prophylaxis. MTDD
[2018-05-31 05:49] LABS: Critical Call Chem Troponin I RESULT DECREASING; Troponin I 1.228 ng/mL (< 0.028)
[2018-05-31] MEDS: Insulin Glargine 50 UNITS in Pre-Filled Syringe 1 EACH SC SCH (08:51)
[2018-05-31] MEDS: Simvastatin 20 MG TAB PO SCH ×2 (08:51→20:25)
--- NOTE | 2018-05-31 08:51 | PDOC.EVN ---
Event Note - Event Note Event Note: Records reviewed, patient seen and examined. He has a cough that seems to be triggering some afib. He is rapidly cycling from afib with RVR to NSR with low normal rate. Asymptomatic and BP is stable with it. Exam notable for irreg heart rhythm, but otherwise generally normal. Replacing potassium and phos. Will check mag. Cardiology consult pending. Has some pulm vasc congestion on CXR, but no infiltrate. Will add Tessalon perls to try to suppress the cough.
[2018-05-31] MEDS: Carvedilol 25 MG TAB PO SCH ×2 (08:52→20:26)
[2018-05-31] MEDS: Sevelamer Carbonate 800 MG TAB PO SCH ×3 (08:52→16:31)
[2018-05-31] MEDS: hydrALAZINE 25 MG TAB PO SCH ×4 (08:52→20:25)
[2018-05-31] MEDS ORDERED: Aspirin 325 mg Enteric Coated Tablet PO SCH (09:00)
[2018-05-31] MEDS ORDERED: Non-Formulary Item 1 EACH (Insulin Detemir [Levemir] 50 UNITS) SC SCH (09:00)
[2018-05-31] MEDS ORDERED: Potassium Chloride 20 MEQ in Premix Bag 1 BAG IVPB SCH (09:00)
[2018-05-31] MEDS: Benzonatate 100 MG CAP PO SCH ×3 (09:24→20:26)
[2018-05-31 10:32] LABS: Magnesium 2.1 mg/dL (1.6-2.6); Potassium 3.7 mmol/L (3.5-5.1)
[2018-05-31] MEDS: Heparin 10,000 UNITS/ 10 ML VIAL SLOW IVP SCH ×2 (10:47→18:11)
--- NOTE | 2018-05-31 11:38 | CON ---
DATE OF CONSULTATION: 05/31/2018 REASON FOR CONSULTATION: Chest pain and elevated troponin. HISTORY OF PRESENT ILLNESS: Mr. Kramer is a pleasant 68-year-old gentleman who is a patient of Dr. Elsy Booker. He has a history of previous CAD status post stent placement. He also has end-stage renal disease. He recently presented with chest pain that he described as mild. It began after havi ng a cough. He felt his heart rate was increased. The pain was not worse with deep breath. PAST MEDICAL HISTORY: CAD status post stent placement, diabetes mellitus, hypertension, atrial fibri llation, end-stage renal disease. SOCIAL HISTORY: No current tobacco or alcohol use. ALLERGIES: PENICILLIN and IV CONTRAST. MEDICATIONS: Include carvedilol, Renvela, naproxen, simvastatin, aspirin, clonidine, Zetia and Levem ir. REVIEW OF SYSTEMS: Ten-point review of systems reviewed and as above, otherwise negative. PHYSICAL EXAMINATION: GENERAL: Patient is a pleasant male who is in no acute distress. The patient appears his stated age . VITAL SIGNS: Blood pressure 147/62, pulse 94, temperature 99. NEUROLOGIC: The patient is alert and oriented times 3 with no focal neurologic deficits. HEENT: Sclerae without icterus. Mouth has moist mucous membranes with normal pallor. NECK: No JVD. Carotid upstroke brisk. No bruits bilaterally. LUNGS: Clear to auscultation with unlabored respirations. BACK: No scoliosis or kyphosis. CARDIAC: Regular rate and rhythm with normal S1 and S2. No S3 or S4 noted. No significant rubs, mu rmurs, thrills, or gallops noted throughout the precordium. PMI is not displaced. There is no grupo ternal heave. ABDOMEN: Soft, nontender, nondistended. No peritoneal signs present. No hepatosplenomegaly. No ab normal striae. EXTREMITIES: 2+ femoral and 2+ dorsalis pedis pulses. No cyanosis, clubbing, or edema. SKIN: No gross abnormalities. PERTINENT LABORATORY DATA: Hemoglobin 10.9. Peak troponin 1.2, now down trending. Creatinine 5.4, potassium 3.2. IMPRESSION: 1. Atypical chest pain. 2. Elevated troponin. 3. End-stage renal disease. 4. Coronary artery disease. 5. Status post stent placement. RECOMMENDATIONS: I had a long discussion with Mr. Kramer on how to proceed. I did recommend coronary angiography and possible PCI. I discussed the procedure in full detail with the patient. The risks of the procedure were also discussed. The risks of the procedure include but are not limited to the following: , stroke, SD, need for emergency surgery, loss of limb, bleeding, and infection, as well as a reaction to the dye causing kidney failure and needing long-term dialysis. I also discuss ed the risks of PCI to include all of the above including coronary dissection and perforation in jeniffer tion to acute stent thrombosis and restenosis. All questions about the procedure were answered. Giv en the above, the patient agreed to proceed with coronary angiography and possible PCI. I also state d that he may become anuric. He does have some urine output. He states he is very concerned about t he dye. He states he has had a reaction in the past. I did state we could premedicate him prior to the procedure. Despite premedication, the patient opted for a medical therapy. He is not interested in proceeding with coronary angiography. We will continue heparin over the next 24 hours. We will supplement with aspirin, Plavix, statin therapy, nitrates in addition to beta juan therapy. We wi ll again discuss tomorrow.
--- NOTE | 2018-05-31 18:31 | CON ---
DATE OF CONSULTATION: 05/31/2018 HISTORY OF PRESENT ILLNESS: Mr. Kramer is a 68-year-old male who presented with chest discomfort. He is followed by Dr. Booker. He has had coronary stenting in the past. He is a dialysis patient. He subsequently has been admitted for chest discomfort. He has no pain and no shortness of breath a t this time. PAST MEDICAL HISTORY: Remarkable for diabetes, hypertension, atrial fibrillation. He has been in and out of atrial fibrillation since he has been admitted here. SOCIAL HISTORY: Nonsmoker, nondrinker, nondrug user. ALLERGY: Reports an IODINE and PENICILLIN allergy. MEDICATIONS: He is on Coreg, Renvela, Naprosyn, simvastatin, aspirin, Catapres, Zetia and Levemir. FAMILY HISTORY: Negative for lung disease in early age. REVIEW OF SYSTEMS: Ten-point review of systems otherwise negative. PHYSICAL EXAMINATION: GENERAL: He is in no distress, lying flat in bed. VITAL SIGNS: He is afebrile, heart rate 94%, blood pressure 151/74, respiratory rate 18. He is on r oom air, oximetry is 96%-100%, blood pressure 147/62. HEENT: Pupils are equal. Sclerae is anicteric. NECK: Supple. LUNGS: Clear. HEART: Irregularly irregular. ABDOMEN: Soft. EXTREMITIES: Without clubbing, cyanosis, or edema. LABORATORY DATA: White count 9.9, hemoglobin 10.9, platelets 204. Electrolytes are unremarkable. Creatinine is 5.4. Potassium is 3.2. Troponin was 1.24 and 1.22. IMPRESSION: 1. Intermittent atrial fibrillation. 2. History of coronary stenting in the past, it is unclear when his last stress test was. 3. End-stage renal disease. Dr. Lawson has recommended a coronary angiogram. Patient declined cardiac catheterization. He is currently heparinized. We will follow the other physicians caring for him. He is medically stable at this time. It is a 50-minute consult, greater than 50% of the time spent on unit coordinating care.
[2018-05-31] MEDS: Ezetimibe 10 MG TAB PO SCH (20:26)
[2018-06-01 00:49] LABS: #Basophils 0.1 thou/uL (0.0-0.2); #Eosinphils 0.1 thou/uL (0.0-0.7); #Lymphocytes 3.3 thou/uL (1.20-3.40); #Monocytes 0.4 thou/uL (0.11-0.59); #Neutrophils 4.3 thou/uL (1.40-6.50); %Basophils 1.5 % (0.0-1.0); %Eosinophils 1.7 % (0.0-10.0); %Lymphocytes 40.1 % (21.0-51.0); %Monocytes 4.7 % (0.0-10.0); Hemoglobin 9.9 g/dL (14.0-18.0); Mean Corpuscular HGB CONC 30.3 g/dL (32.0-36.0); Mean Corpuscular Hemoglobin 24.9 pg (27.0-31.0); Mean Platelet Volume 9.9 fL (7.4-10.4); Platelet Count 194 thou/uL (130-400); RBC Distribution Width 15.5 % (11.5-14.5); Red Blood Cell (RBC) Count 3.98 mill/uL (4.70-6.10); White Blood Cell (WBC) Count 8.3 thou/uL (4.8-10.8)
[2018-06-01] MEDS: Heparin 10,000 UNITS/ 10 ML VIAL SLOW IVP SCH (01:06)
[2018-06-01 01:35] LABS: Anion Gap 9 mmol/L (10-20); BUN (Urea Nitrogen) 28 mg/dL (8.4-25.7); Calc. Creatinine Clearance 15 mL/min (70-130); Calcium 7.6 mg/dL (7.8-10.44); Carbon Dioxide 27 mmol/L (23-31); Chloride 102 mmol/L (98-107); Estimated GFR-MDRD 10; Glucose 96 mg/dL (80-115); Potassium 3.3 mmol/L (3.5-5.1); Sodium 135 mmol/L (136-145)
[2018-06-01] MEDS: Heparin 25,000 units/D5W 500 ML IV SCH (04:35)
[2018-06-01] MEDS: Insulin Glargine 50 UNITS in Pre-Filled Syringe 1 EACH SC SCH (08:39)
[2018-06-01] MEDS: Simvastatin 20 MG TAB PO SCH ×2 (08:40→21:56)
[2018-06-01] MEDS: Benzonatate 100 MG CAP PO SCH ×3 (08:40→21:56)
[2018-06-01] MEDS: Carvedilol 25 MG TAB PO SCH ×2 (08:40→21:57)
[2018-06-01] MEDS: hydrALAZINE 25 MG TAB PO SCH ×4 (08:40→21:57)
[2018-06-01] MEDS: Sevelamer Carbonate 800 MG TAB PO SCH ×3 (08:40→16:47)
--- NOTE | 2018-06-01 10:00 | PDOC.CTH ---
Cardiology Progress Note - Subjective No complaints this morning - Objective Vital Signs Temp Pulse Resp BP BP Pulse Ox 06/01/18 08:41 70 142/63 H 06/01/18 08:40 70 142/63 H 06/01/18 08:08 99 06/01/18 07:31 98.9 F 70 24 H 147/62 H 99 06/01/18 04:15 98.4 F 66 18 164/71 H 98 06/01/18 00:00 98.4 F 64 20 114/55 L 100 Weight 239 lb 4 oz 05/31/18 06/01/18 06/02/18 07:59 06:59 06:59 Intake Total Balance - Physical Examination General/Neuro: alert & oriented x3, NAD Neck: carotid US brisk, no JVD present Lungs: CTA, unlabored respirations Heart: PMI normal, RRR Abdomen: no HSM, NT/ND, soft Extremities: + femoral B - Labs Result Diagrams: 06/01/18 00:35 06/01/18 00:35 Troponin/CKMB CK-MB (CK-2) 1.6 ng/mL (0-6.6) 05/30/18 22:36 Troponin I 1.228 ng/mL (< 0.028) H* 05/31/18 04:43 - Assessment/Plan Atypical CP Afib CAD elevated troponin Recommended angio; pt deferred at this time. He is concerned about having another reaction to the contrast. I did state he could be pre-medicated. Pt defers. Also stated he may become anuric (pt oliguric). Pt concerned about not being able to urinate again Ok to dc heparin today Add plavix On asa, statin nd BB Pt with PAF and deferred ACT during his last hospital visit last month Pt states he and Dr. Booker decidied not to restart ACT. Pt not interested. I did state he is at risk of CVA
[2018-06-01] MEDS ORDERED: Potassium Chloride 20 MEQ TAB PO SCH (13:30)
--- NOTE | 2018-06-01 14:02 | PDOC.PN ---
- Subjective Encounter Start Date: 06/01/18 Encounter Start Time: 13:57 Denies complaints. - Objective Resuscitation Status: Resuscitation Status FULL:Full Resuscitation Vital Signs & Weight: Vital Signs (12 hours) Temp Pulse Resp BP BP Pulse Ox 06/01/18 12:00 97.8 F 66 17 162/76 H 99 06/01/18 11:41 97.7 F 67 12 149/70 H 98 06/01/18 08:41 70 142/63 H 06/01/18 08:40 70 142/63 H 06/01/18 08:08 99 06/01/18 07:31 98.9 F 70 24 H 147/62 H 99 06/01/18 04:15 98.4 F 66 18 164/71 H 98 Weight Weight 239 lb 4 oz I&O: 05/31/18 06/01/18 06/02/18 07:59 06:59 06:59 Intake Total Balance Result Diagrams: 06/01/18 00:35 06/01/18 00:35 Additional Labs: Accuchecks 06/01/18 06/01/18 05/31/18 10:31 05:43 20:25 POC Glucose 150 H 91 134 H 05/31/18 16:34 POC Glucose 161 H Phys Exam - Physical Examination Constitutional: NAD Respiratory: no wheezing, no rales, no rhonchi, clear to auscultation bilateral Cardiovascular: RRR, no significant murmur Gastrointestinal: soft, non-tender, no distention, positive bowel sounds Musculoskeletal: no edema Deviation from normal: flat affect. Dx/Plan (1) Elevated troponin Code(s): R74.8 - ABNORMAL LEVELS OF OTHER SERUM ENZYMES Status: Acute Comment: Suspect it is demand ischemia secondary to the afib with RVR in the setting of ESRD. Has slightly elevated levels chronically. Declined C. (2) Atrial fibrillation with RVR Code(s): I48.91 - UNSPECIFIED ATRIAL FIBRILLATION Status: Acute Comment: Was intermittently converting to Afib with RVR and NSR. Now stable in NSR. Not on anticoag per his discussion with Dr. Booker. (3) Diabetes mellitus type 2, insulin dependent Code(s): E11.9 - TYPE 2 DIABETES MELLITUS WITHOUT COMPLICATIONS; Z79.4 - FPC (CURRENT) USE OF INSULIN Status: Chronic Comment: Well controlled. (4) End stage renal disease on dialysis Code(s): N18.6 - END STAGE RENAL DISEASE; Z99.2 - DEPENDENCE ON RENAL DIALYSIS Status: Chronic Comment: Continue scheduled HD. (5) Hypertension Code(s): I10 - ESSENTIAL (PRIMARY) HYPERTENSION Status: Chronic - Plan * Plavix added. Monitor today. Possible DC tomorrow to follow up with Dr. Booker.
--- NOTE | 2018-06-01 14:37 | PRG ---
DATE OF SERVICE: 06/01/2018 SUBJECTIVE: No new complaints. OBJECTIVE: GENERAL: He is sitting in the chair. VITAL SIGNS: He is afebrile, heart rate is 66, respiratory rate 17, oximetry is 99 on room air, bloo d pressure 162/76. LUNGS: Clear. HEART: Regular rhythm. ABDOMEN: Soft. He denies chest pain. LABORATORY DATA: White count 8.3, hemoglobin 9.9, platelets 194. Sodium 135, potassium 3.3, chlorid e 102, bicarb 27, BUN 28, creatinine 6.99. IMPRESSION AND PLAN: 1. End-stage renal disease. 2. Probable significant coronary artery disease. He has declined cardiac catheterization. He says he does not have an appointment with Dr. Booker until September. I have encouraged him to make an ear lier appointment when his office opens tomorrow. He appears stable at this time. We will sign off. He will be transferred out of the Intermediate Care Unit.
[2018-06-01] MEDS: Ezetimibe 10 MG TAB PO SCH (21:57)
[2018-06-02] MEDS: Benzonatate 100 MG CAP PO SCH ×2 (08:20→18:25)
[2018-06-02] MEDS: Carvedilol 25 MG TAB PO SCH (08:21)
[2018-06-02] MEDS: Sevelamer Carbonate 800 MG TAB PO SCH ×3 (08:21→18:25)
[2018-06-02] MEDS: hydrALAZINE 25 MG TAB PO SCH ×3 (08:21→18:25)
[2018-06-02] MEDS: Simvastatin 20 MG TAB PO SCH (08:21)
[2018-06-02] MEDS: Insulin Glargine 50 UNITS in Pre-Filled Syringe 1 EACH SC SCH (08:22)
[2018-06-02] MEDS ORDERED: Clopidogrel Bisulfate 75 MG TAB PO SCH (09:00)
--- NOTE | 2018-06-02 11:58 | EKG ---
Test Reason : STAT Blood Pressure : / mmHG Vent. Rate : 129 BPM Atrial Rate : 127 BPM P-R Int : 000 ms QRS Dur : 100 ms QT Int : 306 ms P-R-T Axes : 000 043 053 degrees QTc Int : 448 ms Atrial fibrillation with rapid ventricular response Nonspecific ST abnormality Abnormal ECG Confirmed by SAGAR CLEMENTS ([id number]) on 06/02/2018 11:58:23 AM Referred By: CORINNE Confirmed By:SAGAR CLEMENTS
--- NOTE | 2018-06-02 12:22 | PDOC.CTH ---
Cardiology Progress Note - Subjective He is doing well. No more chest pains. He does still have a mild cough and when he coughs he feels a little discomfort but better than when he came in. - Objective Vital Signs Temp Pulse Resp BP BP Pulse Ox 06/02/18 12:05 63 151/68 H 06/02/18 12:00 97.4 F L 63 14 151/68 H 98 06/02/18 08:22 70 06/02/18 08:21 70 174/77 H 06/02/18 08:00 97.5 F L 70 14 174/77 H 96 06/02/18 04:00 97.9 F 56 L 18 165/74 H 98 Weight 240 lb 11.916 oz 06/01/18 06/02/18 06/03/18 06:59 06:59 06:59 Intake Total 1000 240 Output Total 0 Balance 1000 240 - Physical Examination General/Neuro: alert & oriented x3, NAD Neck: no JVD present Lungs: CTA, unlabored respirations Heart: RRR Abdomen: NT/ND Extremities: other: (no edema) - Telemetry Telemetry Rhythm: NSR - Labs Result Diagrams: 06/01/18 00:35 06/01/18 00:35 Troponin/CKMB CK-MB (CK-2) 1.6 ng/mL (0-6.6) 05/30/18 22:36 Troponin I 1.228 ng/mL (< 0.028) H* 05/31/18 04:43 - Assessment/Plan 1. Atypical CP 2. Paroxysmal Afib 3. CAD 4. Elevated troponin PLAN: - He continues to refuse coronary angio given the risk of contrast reaction. - We had a long conversation about why he would be candidate for superintendent container terminal anticoagulation with his CHADS VASc of 4 and he agrees and would like to start Eliquis. - He will follow up with Dr Booker for further management of his afib. We also spoke about possible Lariat or Watchman device in case he were to not tolerate anticoagulation and he may consider this as an option in the future. - May discharge home any time from cardiac perspective. - Will stop aspirin and continue Eliquis and Plavix.
--- NOTE | 2018-06-02 16:06 | PQF ---
CLINICAL DOCUMENTATION IMPROVEMENT CLARIFICATION FORM: ICD-10 Updated PLEASE DO AN ADDENDUM TO THE PROGRESS NOTE WITH ANY DOCUMENTATION UPDATES OR ADDITIONS AND CARRY THROUGH TO DC SUMMARY. THANK YOU. DATE: 06/02/18 ATTN: DR. JOHNSON Please exercise your independent, professional judgment in responding to the clarification form. Clinical indicators are provided on the bottom of this form for your review Please check appropriate box(s): AMI TYPE: [ x ] NSTEMI [ ] AL Type II [ ] DEMAND ISCHEMIA [ ] Other diagnosis [ ] Unable to determine In addition, please specify: Present on Admission (POA): [ x ] Yes [ ] No [ ] Unable to determine CLINICAL INDICATORS - SIGNS / SYMPTOMS / LABS H&P 05/31: "NSTEMI" 05/31 CONSULTATION NOTE (CHRISTOPH): "ATYPICAL CHEST PAIN, ELEVATED TROPONIN" PROGRESS NOTE 06/01: "SUSPECT IT IS DEMAND ISCHEMIA SECONDARY TO THE AFIB WITH RVR IN THE SETTING OF ESRD" TROP 1.163 RISKS: H/O CAD H/O CORONARY STENTS HYPERTENSION AFIB RENAL DISEASE TREATMENT: TELEMETRY MONITORING CARDIOLOGY CONSULT SERIAL ENZYMES LOVENOX (ER) ELIQUIS (STARTED 06/02) PLAVIX (STARTED 06/02) ASPIRIN (05/31-06/02) (This form is maintained as a part of the permanent medical record) 2014 [employer]. All Rights Reserved BONNIE [email or web address] Office: [phone] [facility]
[2018-06-02 18:25] VITALS: BP 172/91
[2018-06-02 18:26] VITALS: TEMP 98.2
[2018-06-02] MEDS ORDERED: Apixaban 2.5 MG TAB PO SCH (21:00)
== END 2018-06-02 20:28 | disposition home or self-care (01) | DRG 280 ==
LOC: ERS 22:13 → IMCU/EMU 05-31 00:16 → 2NO 06-01 11:50
PROVIDERS: ADMIT Internal Medicine; ATTEND Internal Medicine
PROC: 5A1D70Z Performance of Urinary Filtration, Intermittent, Less than 6 Hours Per Day (ICD-10-PCS; principal; 2018-05-31)
DX: I21.4 Non-ST elevation (NSTEMI) myocardial infarction (principal); N18.6 End stage renal disease; I13.0 Hypertensive heart and chronic kidney disease with heart failure and stage 1 through stage 4 chronic kidney disease, or unspecified chronic kidney disease; E11.22 Type 2 diabetes mellitus with diabetic chronic kidney disease; I48.91 Unspecified atrial fibrillation; Z89.411 Acquired absence of right great toe; I25.10 Atherosclerotic heart disease of native coronary artery without angina pectoris; Z95.5 Presence of coronary angioplasty implant and graft; Z99.2 Dependence on renal dialysis; I08.1 Rheumatic disorders of both mitral and tricuspid valves; Z88.0 Allergy status to penicillin; Z91.041 Radiographic dye allergy status; Z79.899 Other long term (current) drug therapy; Z79.82 Long term (current) use of aspirin; E87.6 Hypokalemia; D64.9 Anemia, unspecified
CPT/HCPCS: 36415; 36416; 71045; 80048; 80053; 80069; 82553; 83690; 83735; 83880; 84484; 85025; 85730; 93005; 93010; 96372; 96374; J1644; J1650; J3010; J7050

== ENCOUNTER 2018-11-16 22:14 | Observation (INO) | payer MEDICARE, MEDICAID ==
[2018-11-16 23:26] LABS: #Basophils 0.1 thou/uL (0.0-0.2); #Eosinphils 0.2 thou/uL (0.0-0.7); #Lymphocytes 1.6 thou/uL (1.20-3.40); #Monocytes 0.4 thou/uL (0.11-0.59); #Neutrophils 4.3 thou/uL (1.40-6.50); %Eosinophils 2.9 % (0.0-10.0); %Lymphocytes 23.8 % (21.0-51.0); %Monocytes 5.9 % (0.0-10.0); %Neutrophils 66.5 % (42.0-75.0); Hemoglobin 11.3 g/dL (14.0-18.0); Mean Corpuscular HGB CONC 30.2 g/dL (32.0-36.0); Mean Corpuscular Hemoglobin 25.4 pg (27.0-31.0); Mean Corpuscular Volume 84.1 fL (78.0-98.0); Mean Platelet Volume 11.8 fL (7.4-10.4); Platelet Count 162 thou/uL (130-400); Red Blood Cell (RBC) Count 4.46 mill/uL (4.70-6.10); White Blood Cell (WBC) Count 6.5 thou/uL (4.8-10.8)
[2018-11-16 23:47] LABS: ALT (SGPT) 16 U/L (8-55); AST (SGOT) 22 U/L (5-34); Albumin 3.5 g/dL (3.4-4.8); Alkaline Phosphatase 106 U/L (40-150); Anion Gap 17 mmol/L (10-20); BUN (Urea Nitrogen) 50 mg/dL (8.4-25.7); Bilirubin, Total 0.3 mg/dL (0.2-1.2); CK (CPK) 480 U/L (30-200); Calc. Creatinine Clearance 0 mL/min (70-130); Calcium 8.1 mg/dL (7.8-10.44); Carbon Dioxide 25 mmol/L (23-31); Chloride 102 mmol/L (98-107); Estimated GFR-MDRD 8; Glucose 283 mg/dL (80-115); Potassium 6.5 mmol/L (3.5-5.1); Protein, Total 6.5 g/dL (5.8-8.1); Sodium 137 mmol/L (136-145)
[2018-11-17] MEDS ORDERED: Sodium Bicarbonate 2.5 MEQ/5 ML VIAL ONE (00:01)
[2018-11-17] MEDS ORDERED: Dextrose 50% Abboject 50 ML SYRINGE ONE (00:01)
[2018-11-17] MEDS ORDERED: Calcium Chloride 1 GM/10 ML Abboject SYRINGE ONE (00:01)
[2018-11-17] MEDS ORDERED: Sodium Bicarb 50 MEQ/50 ML Abboject 8.4% SYRINGE ONE (00:02)
[2018-11-17] MEDS ORDERED: Insulin Regular 300 UNITS/3 ML VIAL ONE (00:03)
[2018-11-17 01:49] LABS: HBSAg Index 0.36 S/CO (0-0.99); Hep B Surf Ag Non-Reactive S/CO (NonReactive)
[2018-11-17] MEDS ORDERED: Acetaminophen 325 MG TAB PO PRN (01:53)
--- NOTE | 2018-11-17 02:34 | HP ---
CHIEF COMPLAINT: Lower extremity weakness. HISTORY OF PRESENT ILLNESS: This patient is a 68-year-old male with end-stage renal disease on dialysis, followed by Dr. Puneet Best. The patient presented to the emergency department with a complaint of weakness in his lower extremities that has been progressive over the past several months. The patient reports that primarily he notices it when he is trying to get up from a seated position. He has had one fall recently that he believes is related to this. He denies weakness in any other parts of his body. Denies any significant pain in his legs or numbness. He denies any antecedent injury or illness that precipitated this. He did tell the emergency provider that he did have some mild dull pain behind his knees. He is unaware of any modifying factors. The patient is reporting that he is staying on his dialysis regimen and has not missed any dialysis treatments recently. REVIEW OF SYSTEMS: All other systems were reviewed, all pertinent positives and negatives noted in the history of present illness. PAST MEDICAL HISTORY: Notable for the end-stage renal disease on Saturday, Saturday, and Saturday dialysis regimen, followed by Dr. Best, has a history of hypertension, diabetes mellitus type 2, gout, atrial fibrillation, coronary artery disease. PAST SURGICAL HISTORY: Right first toe amputation, coronary stents, and recent cataract surgery to the right eye. FAMILY HISTORY: Reviewed, noncontributory. SOCIAL HISTORY: The patient is a nonsmoker, nondrinker. He lives at home alone. He is a full code and his daughter, Maren would be his surrogate decision maker. ALLERGIES: NONE. MEDICATIONS: 1. Coreg 25 mg p.o. b.i.d. 2. Aspirin 81 mg daily. 3. Zetia 10 mg at bedtime. 4. Levemir 50 units subcu q.a.m. 5. Simvastatin 5 mg p.o. at bedtime. 6. Amiodarone 200 mg daily. 7. Eliquis 2.5 mg p.o. b.i.d. 8. Hydralazine 50 mg q.i.d. 9. Renvela 800 mg 3 p.o. t.i.d. with meals. 10. Cardizem LA 120 mg b.i.d. 11. Vitamin D 2000 units one p.o. daily. PHYSICAL EXAMINATION: VITAL SIGNS: BP 183/82, pulse 72, respirations 16, temperature 98.4, and O2 saturation 95% on room air. GENERAL APPEARANCE: Age-appropriate male, in no distress. He is awake, alert, oriented, pleasant, and cooperative. HEENT: The patient has a protective shield taped over the right eye. His left eye is reactive. He has no acute lesions. HEART: Regular with some ectopy. No murmurs. LUNGS: Clear to auscultation bilaterally with good chest wall expansion and air exchange. ABDOMEN: Soft, nontender, and nondistended. Positive bowel sounds. No masses and no organomegaly. EXTREMITIES: Have no cyanosis, clubbing, or edema. SKIN: Warm and dry. NEUROLOGICAL: The patient appears to have relatively normal strength in both lower extremities. He has normal sensation to light touch. LABORATORY DATA: White count 6.5, hemoglobin 11.3, and platelets 162. Sodium 137, potassium 6.5, chloride 102, CO2 is 25, BUN 50, creatinine 8.29, glucose 283. AST 22, ALT 16, and alkaline phosphatase 106. CK is 480. Albumin 3.5. Hepatitis B antigen, nonreactive. EKG shows normal sinus rhythm at 60 beats per minute. IMPRESSION AND PLAN: 1. Hyperkalemia of 6.5 without significant EKG findings. Dr. Best has been consulted. The patient is set to go to dialysis. They are waiting on his hepatitis antigen which is now back. In the emergency department, the patient did receive calcium chloride, sodium bicarbonate, dextrose and insulin. His blood sugars are now all high. As a result of that, we will recheck after dialysis. 2. Lower extremity weakness, unclear etiology. The patient may be developing some early diabetic neuropathy. We will ask Physical Therapy to evaluate the patient. 3. End-stage renal disease, as above, receiving dialysis tonight. 4. Diabetes mellitus. We will continue with his home regimen along with Accu-Cheks and sliding scale as needed. 5. Hypertension. Continue with his usual home regimen. 6. History of atrial fibrillation. Continue amiodarone and Eliquis. 7. History of coronary artery disease, stable. Job ID: [id number]
[2018-11-17 05:29] LABS: Anion Gap 14 mmol/L (10-20); BUN (Urea Nitrogen) 31 mg/dL (8.4-25.7); Calc. Creatinine Clearance 0 mL/min (70-130); Carbon Dioxide 26 mmol/L (23-31); Chloride 101 mmol/L (98-107); Estimated GFR-MDRD 13; Glucose 96 mg/dL (80-115); Potassium 4.3 mmol/L (3.5-5.1); Sodium 137 mmol/L (136-145)
[2018-11-17] MEDS ORDERED: Carvedilol 25 MG TAB PO SCH (08:00)
[2018-11-17] MEDS ORDERED: Ezetimibe 10 MG TAB PO SCH (09:00)
[2018-11-17] MEDS ORDERED: Amiodarone 200 MG TAB PO SCH (09:00)
[2018-11-17] MEDS ORDERED: Apixaban 2.5 MG TAB PO SCH (09:00)
[2018-11-17] MEDS ORDERED: Aspirin 81 mg Enteric Coated Tablet PO SCH (09:00)
[2018-11-17] MEDS ORDERED: Heparin 10,000 UNITS/ 10 ML VIAL ONE (09:00)
[2018-11-17] MEDS ORDERED: Insulin Glargine 50 UNITS in Pre-Filled Syringe 1 EACH SC SCH (09:00)
[2018-11-17] MEDS: Sevelamer Carbonate 800 MG TAB PO SCH ×3 (12:54→14:32)
[2018-11-17] MEDS: hydrALAZINE 25 MG TAB PO SCH ×2 (12:55→14:31)
[2018-11-17 15:48] VITALS: BP 160/68; TEMP 98.1
[2018-11-17] MEDS ORDERED: Simvastatin 5 MG TAB PO SCH (21:00)
--- NOTE | 2018-11-18 03:06 | DIS ---
DATE OF ADMISSION: 11/17/2018 DATE OF DISCHARGE: 11/17/2018 PRIMARY CARE PHYSICIAN: Milagros Madsen MD REASON FOR ADMISSION: Hyperkalemia, lower extremity weakness. DIAGNOSES AT DISCHARGE: 1. Hyperkalemia, resolved. 2. End-stage renal disease, on dialysis. 3. Lower extremity weakness, resolved. 4. Diabetes mellitus, type 2. 5. History of atrial fibrillation. 6. History of coronary artery disease. PROCEDURES: None. CONSULTATION: Nephrology, Dr. Best SUMMARY OF HOSPITAL COURSE: This is a 68-year-old male with a history of end- stage renal disease, on dialysis, followed by Dr. Best, who presents to the emergency department with complaint of weakness in his lower extremities, progressive over several months, but then noticed it was significantly bad the day of admission, so he came in. He had trouble standing up with his walker to ambulate which he is normally able to do in the house. The patient was evaluated in the ER. He was noted to have hyperkalemia with a potassium of 6.5. He was put in observation. Dr. Best was consulted. The patient had dialysis, was admitted this morning and had dialysis from the emergency room. His repeat potassium came down to 4.3. The patient had resolution of his lower extremity weakness. He did ambulate with the nurses in the hallway and he ambulated 230 feet with physical therapy using a walker, which he has at home and he was feeling back to baseline, so he is being discharged home. DISCHARGE MANAGEMENT: Location: Discharged home. Followup: Follow up with Dr. Madsen next week and with Dr. Best for continued dialysis as scheduled. Activity: As tolerated. Diet: Renal diet. MEDICATIONS: Resume all home medications. See HPI from earlier today. Job ID: [id number] MTDD
== END 2018-11-17 18:41 | disposition home or self-care (01) ==
LOC: ERS 22:14 → ERHOLD 11-17 01:32 → 2SW 11-17 12:09
PROVIDERS: ADMIT Internal Medicine; ATTEND Internal Medicine
DX: E87.5 Hyperkalemia (principal); I12.0 Hypertensive chronic kidney disease with stage 5 chronic kidney disease or end stage renal disease; E11.22 Type 2 diabetes mellitus with diabetic chronic kidney disease; N18.6 End stage renal disease; M10.9 Gout, unspecified; I48.91 Unspecified atrial fibrillation; I25.10 Atherosclerotic heart disease of native coronary artery without angina pectoris; Z79.01 Long term (current) use of anticoagulants; Z79.4 Long term (current) use of insulin; Z79.899 Other long term (current) drug therapy; Z88.0 Allergy status to penicillin; Z91.041 Radiographic dye allergy status; Z99.2 Dependence on renal dialysis; Z95.5 Presence of coronary angioplasty implant and graft; Z79.82 Long term (current) use of aspirin
CPT/HCPCS: 80048; 80053; 82550; 82962; 85025; 87340; 93005; 96374; 96375; 97139; 99285; G0378 ×2; 36415; 36416; J1644; J1815; J1825

== ENCOUNTER 2019-01-13 07:32 | Outpatient (CLI) | payer MEDICARE, MEDICAID ==
--- NOTE | 2019-01-13 10:17 | RAD ---
LUMBAR SPINE TWO VIEWS: HISTORY: Pain. Fall. COMPARISON: None. FINDINGS: Low grade dextroscoliosis. Multiple bridging osteophytes of the lumbar spine. No acute fracture. Moderate vascular calcifications of the aorta. Old injury of the sacrococcygeal region. There is narrowing of the intraspinous space with sclerosis from L1-L5. IMPRESSION: 1. Moderate degenerative changes. 2. No acute abnormality. POS: [facility]
--- NOTE | 2019-01-13 10:18 | RAD ---
THORACIC SPINE THREE VIEWS: HISTORY: Muscle weakness. Fall. COMPARISON: CT from 04/09/2018. FINDINGS: Upper thoracic evaluation is limited. No definite compression deformity. Vertebral body heights are maintained. Mild spondylosis of the upper thoracic spine with osteophyte formation along the right lateral margin of the vertebrae. Minimal narrowing of the disk spaces. IMPRESSION: 1. No fracture of the thoracic spine. 2. Findings of diffuse idiopathic skeletal hyperostosis. POS: [facility]
== END 2019-01-13 07:33 | disposition home or self-care (01) ==
LOC: BICRAD 07:32
PROVIDERS: ATTEND Internal Medicine Nephrology
DX: R29.898 Other symptoms and signs involving the musculoskeletal system (principal); M85.88 Other specified disorders of bone density and structure, other site; M47.816 Spondylosis without myelopathy or radiculopathy, lumbar region
CPT/HCPCS: 72072; 72100

== ENCOUNTER 2019-07-02 06:32 | Outpatient (CLI) | payer MEDICARE, MEDICAID ==
--- NOTE | 2019-07-02 07:52 | ULT ---
Carotid duplex sonogram HISTORY: Vascular disease. Right ischemic neuropathy. FINDINGS: Right: Scattered areas of plaque. Color and spectral Doppler evaluation, peak systolic velocity of 94 cm/s, and IC to CC ratio 0.8 suggest no hemodynamically significant stenosis within the extracranial right ICA. Antegrade flow within the vertebral artery. Left: Scattered plaque. Color and spectral Doppler evaluation, peak systolic velocity of 111 cm/s, an d IC to CC ratio 1.0 suggest no hemodynamically significant stenosis within the extracranial left ICA. Antegrade flow within the vertebral artery. IMPRESSION: Atherosclerosis. No sonographic evidence of significant extracranial ICA stenosis.
== END 2019-07-02 06:33 | disposition home or self-care (01) ==
LOC: BICULT 06:32
PROVIDERS: ATTEND Family Medicine
DX: H47.011 Ischemic optic neuropathy, right eye (principal); I70.90 Unspecified atherosclerosis
CPT/HCPCS: 93880

== ENCOUNTER 2019-09-11 06:15 | Observation (INO) | payer MEDICARE, MEDICAID ==
[2019-09-11 07:05] LABS: #Basophils 0.1 thou/uL (0.0-0.2); #Eosinphils 0.6 thou/uL (0.0-0.7); #Lymphocytes 1.8 thou/uL (1.20-3.40); #Monocytes 0.6 thou/uL (0.11-0.59); #Neutrophils 6.2 thou/uL (1.40-6.50); %Basophils 0.7 % (0.0-1.0); %Eosinophils 6.1 % (0.0-10.0); %Lymphocytes 19.9 % (21.0-51.0); %Monocytes 6.8 % (0.0-10.0); %Neutrophils 66.6 % (42.0-75.0); Mean Corpuscular HGB CONC 31.4 g/dL (32.0-36.0); Mean Corpuscular Hemoglobin 25.6 pg (27.0-31.0); Mean Corpuscular Volume 81.6 fL (78.0-98.0); Mean Platelet Volume 10.4 fL (7.4-10.4); Platelet Count 153 thou/uL (130-400); RBC Distribution Width 13.1 % (11.5-14.5); Red Blood Cell (RBC) Count 3.89 mill/uL (4.70-6.10); White Blood Cell (WBC) Count 9.3 thou/uL (4.8-10.8)
[2019-09-11 07:26] LABS: ALT (SGPT) 10 U/L (8-55); AST (SGOT) 9 U/L (5-34); Albumin 3.5 g/dL (3.4-4.8); Alkaline Phosphatase 155 U/L (40-110); Anion Gap 16 mmol/L (10-20); BUN (Urea Nitrogen) 35 mg/dL (8.4-25.7); Bilirubin, Total 0.5 mg/dL (0.2-1.2); Calc. Creatinine Clearance 0 mL/min (70-130); Carbon Dioxide 29 mmol/L (23-31); Chloride 99 mmol/L (98-107); Estimated GFR-MDRD 8; Globulin 2.9 g/dL (2.4-3.5); Glucose 251 mg/dL (80-115); Potassium 4.6 mmol/L (3.5-5.1); Protein, Total 6.4 g/dL (5.8-8.1); Sodium 139 mmol/L (136-145)
[2019-09-11] MEDS ORDERED: Aspirin Chewable 81 MG TAB ONE (07:34)
[2019-09-11] MEDS ORDERED: Nitroglycerin 2% Ointment 1 INCH/1 GM Packet ONE (07:34)
[2019-09-11 07:36] LABS: CKMB 0.6 ng/mL (0-6.6)
--- NOTE | 2019-09-11 09:30 | RAD ---
SINGLE VIEW OF THE CHEST: Comparison: 07-04-19 History: Cough, shortness of breath FINDINGS: Single view of the chest shows an enlarged but stable cardiomediastinal silhouette with atherosclerot ic calcifications in the aorta. There is no evidence of consolidation, mass, or pleural effusions. De generative changes are seen in the spine. IMPRESSION: No evidence of acute cardiopulmonary disease. POS: [facility]
[2019-09-11 10:21] LABS: Troponin I 0.067 ng/mL (< 0.028)
[2019-09-11] MEDS ORDERED: hydrALAZINE 20 MG/ML VIAL SLOW IVP PRN (10:53)
[2019-09-11] MEDS ORDERED: Acetaminophen 325 MG TAB PO PRN (10:53)
[2019-09-11] MEDS ORDERED: HumaLOG 300 UNITS/3 ML VIAL SC PRN ×2 (10:53)
[2019-09-11] MEDS ORDERED: Dextrose 5% in Water 1,000 ML IV PRN (10:53)
[2019-09-11] MEDS ORDERED: Dextrose 50% Abboject 50 ML SYRINGE SLOW IVP PRN (10:53)
[2019-09-11 11:03] VITALS: BMI 31.3
--- NOTE | 2019-09-11 11:29 | HP ---
PRIMARY CARE PHYSICIAN: Milagros Madsen MD CHIEF COMPLAINT: "I've been coughing and having chest pain since dialysis." HISTORY OF PRESENT ILLNESS: Mr. Kramer is a very pleasant 69-year-old gentleman, who has a history of end-stage renal disease and diabetes mellitus. He also has atrial fibrillation. He says that on Saturday after dialysis, his tonsil started to feel like they were swelling and was kind of sore. He also noticed that he was having a cough, which was productive of some whitish cold. He denied having any color to it, like any green color or yellow and there was no blood. He also says that when he would cough, he would notice some pain in his chest that typically would happen only with coughing. He did notice some shortness of breath. No fevers. No chills. He did have some nausea and he says he was vomiting a little. He says that around 4:00 a.m., he was feeling "really bad" and as a result, he came to the ER. He says he was vomiting and gagging. He has also noted some intermittent diarrhea during this time as well, but no blood in the stools. As a result, he came to the ER for evaluation. In the ER, he had a chest x-ray done. The reading officially is still pending, but my view looked as if he had some increase in the pulmonary vasculature on the right base, but no evidence of any effusion. He had a slightly elevated troponin and for this reason, he is being placed in observation. REVIEW OF SYSTEMS: Otherwise, with regard to the review of systems, all systems were reviewed and are negative except for that mentioned in the History of Present Illness. PAST MEDICAL HISTORY: Significant for elevated cholesterol; atrial fibrillation; diabetes mellitus, type 2; end-stage renal disease, on hemodialysis; and hypertension. PAST SURGICAL HISTORY: He has had cataract surgery. He has had an AV fistula placed and he had the first toe on the right foot amputated. ALLERGIES: TO IODINE WELL PENICILLIN, BOTH OF WHICH CAUSE A RASH. SOCIAL HISTORY: He is a nonsmoker. Never smoked. Denies any alcohol use. He is . He has a daughter and a son. He would like to be a full code. FAMILY HISTORY: Significant for cancer and diabetes mellitus. CURRENT MEDICATIONS: Include; 1. Zetia 10 mg p.o. daily. 2. Vitamin D3 of 2000 units daily. 3. Trazodone 50 mg one-half tablet at bedtime. 4. Renvela 800 mg three tablets t.i.d. 5. Reglan 5 mg p.o. b.i.d. 6. Levemir insulin 50 units subcu q.a.m. 7. Hydralazine 25 mg twice a day. 8. Aspirin 81 mg daily. 9. Amiodarone 200 mg daily. 10. Cardizem CD 120 mg 2 tablets daily. 11. Claritin 10 mg daily. 12. Coreg 25 mg twice a day. 13. Eliquis 2.5 mg 2 tablets twice a day. PHYSICAL EXAMINATION: GENERAL: He is alert and oriented. He appears to be in no acute distress. He is well developed and well nourished, little bit chronically ill in appearance, however. VITAL SIGNS: Blood pressure was 162/106, heart rate 69, respiratory rate of 23, temperature is 98.3, and O2 saturation was 88% on room air. HEENT: His pupils were slightly asymmetric with the right pupil being slightly larger than the left, but it was reactive. His fundi were visualized more on the right than on the left and there are no significant changes there. His tympanic membranes pearly nathan. There is no redness of the drum. No fluid behind the drum. His throat, he is edentulous. The uvula was midline and there was no erythema, no exudates. NECK: There was no adenopathy. There was no thyromegaly and he did have a carotid bruit on the right. CARDIOVASCULAR: He had a normal S1 and S2. I did not appreciate an S3. The PMI was slightly laterally displaced and there was no murmurs that I could detect. ABDOMEN: It is obese. It is soft. It is nontender, nondistended. Positive for bowel sounds. No rebound. No guarding. Negative Gan's sign. EXTREMITIES: There is no calf tenderness. No joint effusions. On his right foot, there was an amputation of the first toe. He does have some he hammertoe deformities on both feet as well as a mild Charcot deformity of the feet. I was not able to palpate dorsalis pedis pulses. However, he did have a faint posterior tibial pulse bilaterally and his feet were warm and dry and he had good capillary refill. SKIN AND INTEGUMENT: He did have some excoriations on the skin and some areas of hypopigmentation on the lower extremities, but otherwise it was normal. NEUROLOGICAL: The exam is grossly nonfocal. LABORATORY DATA AND X-RAY: On the CBC, the white blood cell count is 9.3, hemoglobin 10, hematocrit is 31.8, and platelet is 153. Sodium 139, potassium of 4.6, chloride is 99, CO2 is 29, BUN of 35, creatinine 8.57, and glucose is 251. Troponin is 0.060. EKG was sinus, the rate was 67. There was evidence of a prolonged QT and no ST wave changes. Chest x-ray, in my opinion, showed cardiomegaly and increased pulmonary vascular markings, primarily on the right. ASSESSMENT AND PLAN: 1. This is a pleasant 69-year-old gentleman, who presents to the emergency room with cough, chest pain, and shortness of breath, also feeling ill and having some diarrhea. I suspect this is a viral syndrome. For the plan, we will place him in observation. We will have a flu swab performed. We will check his stool for Clostridium difficile and place him empirically on antibiotics. He does not appear very ill. Therefore, I think we can use oral azithromycin at this time. 2. Elevated troponin. I suspect this is due to his end-stage renal disease and the levels are actually lower than he had back in May of 2018 and at that time, no particular tests were done, but apparently he had preferred to see Dr. Booker at that time. The patient tells me that he has had a stress test within the last year that was negative. Therefore, for this, we will get an echocardiogram compared to the one back in April of 2018 and there was no significant changes and no rise in his troponin. We will defer any further cardiac workup. 3. Diabetes mellitus. We will reconcile his home medications and restart the Levemir as well as a sliding-scale insulin. 4. Hypertension. Again, restart his home medications and titrate as needed. 5. Atrial fibrillation. We need to clarify the dose of the Eliquis, it is at 2.5 mg twice a day, but he has had 2 tablets, so unsure if he is taking two or one, but once this is reconciled, we can restart his Eliquis. 6. End-stage renal disease. 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 Job ID: [id number]
[2019-09-11] MEDS ORDERED: Azithromycin 250 MG TAB PO SCH (12:00)
[2019-09-11] MEDS ORDERED: Heparin 10,000 UNITS/ 10 ML VIAL ONE (12:25)
[2019-09-11 13:27] LABS: Troponin I 0.066 ng/mL (< 0.028)
[2019-09-11] MEDS: Guaifenesin DM 100-10/5 ML UDCUP PO PRN (14:51)
[2019-09-12 04:52] LABS: #Basophils 0.1 thou/uL (0.0-0.2); #Eosinphils 0.7 thou/uL (0.0-0.7); #Monocytes 0.7 thou/uL (0.11-0.59); #Neutrophils 4.8 thou/uL (1.40-6.50); %Eosinophils 8.6 % (0.0-10.0); %Lymphocytes 24.5 % (21.0-51.0); %Monocytes 7.9 % (0.0-10.0); Hemoglobin 10.2 g/dL (14.0-18.0); Mean Corpuscular HGB CONC 31.7 g/dL (32.0-36.0); Mean Corpuscular Hemoglobin 26.1 pg (27.0-31.0); Mean Corpuscular Volume 82.3 fL (78.0-98.0); Mean Platelet Volume 10.8 fL (7.4-10.4); Platelet Count 150 thou/uL (130-400); RBC Distribution Width 13.3 % (11.5-14.5); Red Blood Cell (RBC) Count 3.93 mill/uL (4.70-6.10); White Blood Cell (WBC) Count 8.3 thou/uL (4.8-10.8)
[2019-09-12 05:06] LABS: Anion Gap 14 mmol/L (10-20); BUN (Urea Nitrogen) 22 mg/dL (8.4-25.7); Calc. Creatinine Clearance 17 mL/min (70-130); Calcium 8.7 mg/dL (7.8-10.44); Carbon Dioxide 31 mmol/L (23-31); Chloride 99 mmol/L (98-107); Estimated GFR-MDRD 12; Glucose 163 mg/dL (80-115); Potassium 4.4 mmol/L (3.5-5.1); Sodium 140 mmol/L (136-145)
[2019-09-12] MEDS: Guaifenesin DM 100-10/5 ML UDCUP PO PRN (05:27)
[2019-09-12 08:05] VITALS: BP 167/99; TEMP 98.4
--- NOTE | 2019-09-12 08:53 | DIS ---
DATE OF ADMISSION: 09/11/2019 DATE OF DISCHARGE: 09/12/2019 PRIMARY CARE PROVIDER: Dr. Milagros Madsen. FINAL DIAGNOSES: Bronchitis, nonspecific chest pain, atrial fibrillation, anticoagulation, end-stage renal disease, hypertension. DISCHARGE MEDICINES: New; 1. Zithromax 500 mg p.o. daily x5. 2. Tessalon Perles 100 mg one every 8 hours as needed for cough. Chronic medications; 1. Amiodarone 200 mg a day. 2. Eliquis 2.5 mg twice a day. 3. Aspirin 81 mg a day. 4. Coreg 25 mg twice a day. 5. Diltiazem 440 mg a day. 6. Zetia 10 mg a day. 7. Hydralazine 50 mg q.i.d. 8. Insulin detemir 50 units subcu in the morning. 9. Metoclopramide 5 mg twice a day. 10. Zocor 5 mg p.o. at bedtime. 11. Renagel 2400 mg p.o. t.i.d. ALLERGIES: IODINE AND PENICILLINS. DIET: Diabetic. CODE STATUS: Full. PENDING AT TIME OF DISCHARGE: Nothing. HOSPITAL COURSE: The patient was admitted to the [facility] Hospitalist Service through [facility] with cough, some diarrhea, generalized ill feeling. He was evaluated and referred to the [facility] Hospitalist Service. On evaluation, his influenza screen was found to be negative. His laboratory; his comprehensive metabolic profile revealed a creatinine of 8.57, BUN of 35, glucose of 251. The patient underwent hemodialysis yesterday, 09/11. His troponins were 0.06, 0.067, 0.066. EKG revealed no acute ST-T abnormality. He has had no more diarrhea. He does have a cough. He has had no fever, chills, or sweats. His vital signs are stable. He is being discharged on Zithromax and Tessalon for bronchitis. He has been asked to keep his routine hemodialysis appointments, to follow up with his primary care doctor in 3 days. He is agreeable with this plan. It is pertinent to note that he is followed by Dr. Booker for Cardiology and reports he has had a stress test recently. His chest pain is atypical for cardiac. He has more aggravated chest wall pain by coughing. No consultations were obtained. No procedures were done. Job ID: [id number]
--- NOTE | 2019-09-12 12:14 | EKG ---
Test Reason : Blood Pressure : / mmHG Vent. Rate : 067 BPM Atrial Rate : 067 BPM P-R Int : 088 ms QRS Dur : 092 ms QT Int : 474 ms P-R-T Axes : 023 010 075 degrees QTc Int : 500 ms Sinus rhythm with short DC Prolonged QT Abnormal ECG Confirmed by BALJINDER GARCIA ([id number]), science editor AILYN SOLIS ([id number]) on 09/12/2019 12:14:23 PM Referred By: Confirmed By:BALJINDER GARCIA
== END 2019-09-12 10:07 | disposition home or self-care (01) ==
LOC: ERS 06:15 → 2SW 10:46
PROVIDERS: ADMIT Internal Medicine; ATTEND Emergency Medicine
DX: J40 Bronchitis, not specified as acute or chronic (principal); R07.9 Chest pain, unspecified; R79.89 Other specified abnormal findings of blood chemistry; I12.0 Hypertensive chronic kidney disease with stage 5 chronic kidney disease or end stage renal disease; E11.22 Type 2 diabetes mellitus with diabetic chronic kidney disease; N18.6 End stage renal disease; E78.00 Pure hypercholesterolemia, unspecified; I48.91 Unspecified atrial fibrillation; E78.5 Hyperlipidemia, unspecified; F17.220 Nicotine dependence, chewing tobacco, uncomplicated; Z79.01 Long term (current) use of anticoagulants; Z79.4 Long term (current) use of insulin; Z79.82 Long term (current) use of aspirin; Z79.899 Other long term (current) drug therapy; Z88.0 Allergy status to penicillin; Z91.041 Radiographic dye allergy status; Z89.411 Acquired absence of right great toe; Z99.2 Dependence on renal dialysis
CPT/HCPCS: 71045; 80048; 80053; 82553; 82962; 83880; 84484 ×2; 85025 ×2; 87804 ×2; 93005; 93306; 99285; G0378 ×2; 36415; 36416; 90935; G0257; J1644

== ENCOUNTER 2020-04-10 07:19 | Inpatient (IN) | payer MEDICARE, MEDICAID, OTHER ==
[2020-04-10] MEDS ORDERED: Ondansetron PF 4 MG/2 ML Vial ONE (07:53)
[2020-04-10] MEDS ORDERED: Diltiazem 125 MG/25 ML ONE (08:39)
[2020-04-10 08:44] LABS: #Basophils 0.1 thou/uL (0.0-0.2); #Eosinphils 0.8 thou/uL (0.0-0.7); #Lymphocytes 1.5 thou/uL (1.20-3.40); #Monocytes 0.5 thou/uL (0.11-0.59); #Neutrophils 4.8 thou/uL (1.40-6.50); %Basophils 1.2 % (0.0-1.0); %Eosinophils 10.7 % (0.0-10.0); %Lymphocytes 19.4 % (21.0-51.0); %Monocytes 6.5 % (0.0-10.0); %Neutrophils 62.3 % (42.0-75.0); Hemoglobin 10.6 g/dL (14.0-18.0); Hypochromia SLIGHT = 6-15 cells (100X) (0-5/hpf); MDiff Complete? YES; Mean Corpuscular HGB CONC 29.4 g/dL (32.0-36.0); Mean Corpuscular Hemoglobin 24.9 pg (27.0-31.0); Mean Corpuscular Volume 84.9 fL (78.0-98.0); Mean Platelet Volume 11.9 fL (7.4-10.4); Platelet Count 157 thou/uL (130-400); Poikilocytosis SLIGHT = 6-15 cells (100X) (0-5/hpf); RBC Distribution Width 14.3 % (11.5-14.5); Red Blood Cell (RBC) Count 4.25 mill/uL (4.70-6.10); Target Cells SLIGHT = 2-5 cells (100X) (0-1/hpf); White Blood Cell (WBC) Count 7.7 thou/uL (4.8-10.8)
[2020-04-10] MEDS ORDERED: Acetaminophen 500 MG TAB ONE (09:36)
--- NOTE | 2020-04-10 09:49 | RAD ---
ABDOMINAL SURVEILLANCE UPRIGHT CHEST AND TWO VIEW ABDOMEN: INDICATIONS: Nausea, vomiting, and diarrhea. COMPARISON: Chest film from 04/05/2019 FINDINGS: Mild cardiomegaly with mild vascular congestion. No infiltrate or significant effusion in the chest. Bowel gas pattern is nonspecific. There is scattered stool and gas in the colon and there is some sca ttered small bowel gas, which could represent enteritis or other nonspecific etiology. No evidence of free air under either hemidiaphragm. IMPRESSION: 1. Cardiomegaly with mild vascular congestion. 2. Nonspecific bowel gas pattern, which could indicate enteritis. POS: AGW
[2020-04-10 09:52] LABS: ALT (SGPT) 9 U/L (8-55); AST (SGOT) 7 U/L (5-34); Albumin 3.4 g/dL (3.4-4.8); Alkaline Phosphatase 230 U/L (40-110); Anion Gap 18 mmol/L (10-20); BUN (Urea Nitrogen) 72 mg/dL (8.4-25.7); Bilirubin, Total 0.4 mg/dL (0.2-1.2); Calc. Creatinine Clearance 0 mL/min (70-130); Calcium 8.6 mg/dL (7.8-10.44); Carbon Dioxide 24 mmol/L (23-31); Chloride 104 mmol/L (98-107); Estimated GFR-MDRD 6; Glucose 89 mg/dL (83-110); Lipase 67 U/L (8-78); Magnesium 2.6 mg/dL (1.6-2.6); Phosphorus 4.7 mg/dL (2.3-4.7); Protein, Total 6.4 g/dL (5.8-8.1); Sodium 141 mmol/L (136-145)
[2020-04-10 10:12] LABS: CKMB 1.3 ng/mL (0-6.6)
[2020-04-10] MEDS ORDERED: Metoprolol Tartrate 5 MG/5 ML VIAL ONE (11:02)
[2020-04-10] MEDS ORDERED: Diltiazem 125 MG in Sodium Chloride 0.9% 100 ML IVPB SCH (13:00)
[2020-04-10 14:00] LABS: Troponin I 0.146 ng/mL (< 0.028)
[2020-04-10] MEDS ORDERED: Dextrose 50% Abboject 50 ML SYRINGE SLOW IVP PRN (17:49)
[2020-04-10] MEDS ORDERED: HumaLOG 300 UNITS/3 ML VIAL SC PRN (17:49)
[2020-04-10] MEDS ORDERED: Dextrose 5% in Water 1,000 ML IV PRN (17:49)
[2020-04-10 17:51] LABS: Troponin I 0.129 ng/mL (< 0.028)
[2020-04-10 18:03] VITALS: BMI 34.2
[2020-04-10] MEDS: Carvedilol 25 MG TAB PO SCH (20:40)
[2020-04-10] MEDS: Acetaminophen 325 MG TAB PO PRN (20:41)
[2020-04-10] MEDS ORDERED: Apixaban 2.5 MG TAB PO SCH (21:00)
[2020-04-11 04:38] LABS: #Basophils 0.1 thou/uL (0.0-0.2); #Eosinphils 0.9 thou/uL (0.0-0.7); #Lymphocytes 1.3 thou/uL (1.20-3.40); #Monocytes 0.5 thou/uL (0.11-0.59); #Neutrophils 4.3 thou/uL (1.40-6.50); %Basophils 0.9 % (0.0-1.0); %Eosinophils 12.4 % (0.0-10.0); %Lymphocytes 18.8 % (21.0-51.0); %Monocytes 6.7 % (0.0-10.0); %Neutrophils 61.3 % (42.0-75.0); Hemoglobin 10.2 g/dL (14.0-18.0); Mean Corpuscular HGB CONC 30.6 g/dL (32.0-36.0); Mean Corpuscular Hemoglobin 24.6 pg (27.0-31.0); Mean Corpuscular Volume 80.6 fL (78.0-98.0); Mean Platelet Volume 11.6 fL (7.4-10.4); Platelet Count 164 thou/uL (130-400); RBC Distribution Width 14.1 % (11.5-14.5); Red Blood Cell (RBC) Count 4.13 mill/uL (4.70-6.10); White Blood Cell (WBC) Count 6.9 thou/uL (4.8-10.8)
[2020-04-11 04:54] LABS: ALT (SGPT) 14 U/L (8-55); AST (SGOT) 13 U/L (5-34); Albumin 3.4 g/dL (3.4-4.8); Alkaline Phosphatase 225 U/L (40-110); Anion Gap 20 mmol/L (10-20); BUN (Urea Nitrogen) 85 mg/dL (8.4-25.7); Bilirubin, Total 0.5 mg/dL (0.2-1.2); Calc. Creatinine Clearance 9 mL/min (70-130); Calcium 8.8 mg/dL (7.8-10.44); Carbon Dioxide 22 mmol/L (23-31); Chloride 101 mmol/L (98-107); Estimated GFR-MDRD 5; Globulin 3.1 g/dL (2.4-3.5); Glucose 164 mg/dL (83-110); Potassium 6.1 mmol/L (3.5-5.1); Protein, Total 6.5 g/dL (5.8-8.1); Sodium 137 mmol/L (136-145)
[2020-04-11] MEDS ORDERED: Calcium Gluc 4.6 MEQ/10 ML (100 MG/ML) SLOW IVP SCH (05:45)
[2020-04-11] MEDS ORDERED: Dextrose 50% Abboject 50 ML SYRINGE IVP SCH (05:45)
[2020-04-11] MEDS ORDERED: Insulin Regular 300 UNITS/3 ML VIAL IVP SCH (05:45)
[2020-04-11] MEDS: Famotidine 20 MG TAB PO SCH (08:59)
[2020-04-11] MEDS: Apixaban 2.5 MG TAB PO SCH ×2 (08:59→20:27)
[2020-04-11] MEDS: Acetaminophen 325 MG TAB PO PRN ×2 (08:59→21:20)
[2020-04-11] MEDS: Carvedilol 25 MG TAB PO SCH ×2 (08:59→20:27)
[2020-04-11] MEDS ORDERED: guaiFENesin/DM ER PO SCH (09:00)
[2020-04-11] MEDS: Amiodarone 200 MG TAB PO SCH (09:00)
[2020-04-11] MEDS: guaiFENesin/DM ER PO SCH ×2 (09:42→20:28)
--- NOTE | 2020-04-11 10:44 | RAD ---
EXAM: CHEST ONE VIEW HISTORY: Cough COMPARISON: 04/10/2020 FINDINGS: Cardiac silhouette is stable in size and does appear mildly enlarged. Mild increase in central pulmon gama vasculature is present. There is also mild prominence of the right hilar structures. The right hilar structures are likely accentuated due to to portable technique of the study, and findings were similar to prior exam as well as chest x-ray on 09/01/2019. Mild elevation right hemidiaphragm is present. No definite pleural effusion is seen, and there is no pneumothorax or consolidation. Degener ative changes are again seen in the spine. Vascular calcifications are seen in the thoracic aorta. Vascular stent is again seen overlying right axillary region. IMPRESSION: Mild cardiomegaly with prominence of central pulmonary vasculature. Findings are worrisome for mild C HF. The hilar prominence in the right infrahilar region is probably related to accentuation of vascular structures due to portable technique. However, a follow-up PA and lateral chest x-ray is rec ommended.
[2020-04-11 11:58] LABS: SARS-CoV-2 MS2 Positive; SARS-CoV-2 N Gene Negative; SARS-CoV-2 S Gene Negative; SARS-CoV-2 by NAA Not Detected (NotDetected); SARS-CoV-2 orf1ab Negative
--- NOTE | 2020-04-11 12:54 | HP ---
PRIMARY CARE PHYSICIAN: Dr. Madsen. PLANT TAXONOMIST: Dr. Best. CHIEF COMPLAINT: Nausea, vomiting, diarrhea. HISTORY OF PRESENT ILLNESS: Mr. Kramer is a very pleasant 70-year-old man, who reported to the emergency room today for nausea, vomiting, and diarrhea. He reports the symptoms started yesterday and he has been unable to take his morning medications due to the nausea and vomiting. He reports the diarrhea stops sometime overnight. He is a dialysis patient, missed dialysis on Saturday because he was having surgery to his right eye. They were supposed to come pick him up on Saturday to make up for that, but he said he think they did not do this. He reports that he still has some abdominal cramping. He denies any fever or chills. Denies any chest pain or any shortness of breath, but he does report a cough that he has had for the last several weeks. In the emergency room, he was noted to be in atrial fibrillation with RVR with his pulse sustaining in the 120s. He was given Lopressor and then started on a drip at 5 mg/hour of the Cardizem and now his pulse dipped down into the 80s. He was noted to have an elevated troponin at 0.156, BUN is 72, creatinine at 10.58, alkaline phosphatase at 230. He had a two-view abdomen which showed cardiomegaly with some mild vascular congestion, nonspecific bowel gas pattern, which could indicate enteritis. White blood cell count is 7.7, hemoglobin is 10.6, hematocrit is 36.1, platelet count is 157. He will be admitted to the telemetry unit to trend the troponins. Arrange for dialysis and start him back on his home medications to see if we can flip him back out of the RVR. He does have a history of atrial fibrillation, but is controlled on his home medications which he has not been able to take. REVIEW OF SYSTEMS: All systems are reviewed and are negative unless mentioned in the history of present illness. PAST MEDICAL HISTORY: Hyperlipidemia, atrial fib, diabetes type 2, end-stage renal disease, on hemodialysis, and hypertension. PAST SURGICAL HISTORY: He has had cataract surgery, AV fistula placed in the 1st toe on the right foot amputated and then he had surgery on his right eye on Saturday for glaucoma. ALLERGIES: IODINE AND PENICILLIN, BOTH CAUSE A RASH. SOCIAL HISTORY: He is a nonsmoker. Denies any alcohol use. He is . He has a son and daughter. He is a full code. FAMILY HISTORY: Significant for cancer, diabetes. PHYSICAL EXAMINATION: VITAL SIGNS: Blood pressure 117/56, pulse is 88, respiratory rate is 15, pO2 sats are 97% on room air, temp is 98.8. CONSTITUTIONAL: He is oriented and alert. HEENT: Head is atraumatic and normocephalic. Eyes; he has a patch over his right eye. Left eye is normal to inspection. ENT; mouth exam is normal. Mucous membranes are moist. NECK: Normal range of motion. Trachea is midline. RESPIRATORY/CHEST: Breath sounds are clear. Chest expansion is equal. CARDIOVASCULAR: Rhythm is irregularly irregular. Heart sounds are normal. ABDOMEN: Nontender. Bowel sounds are heard. BACK: Normal range of motion. No tenderness. EXTREMITIES: Upper extremity, normal range of motion. Motor strength is normal. Lower extremity, normal range of motion. Motor strength is normal. He is missing great toe on the right foot from previous surgery. NEURO: The patient is oriented to person, place, and time. Speech is normal. SKIN: Warm and dry. Normal in color. PLAN/ASSESSMENT: 1. Atrial fibrillation with RVR. We will restart his home medications. Keep him on a diltiazem drip until that can be accomplished. We will trend his troponins, most likely due to end-stage renal with his creatinine being higher than it normally is. If we cannot get a better control of the atrial fibrillation, we will consult Cardiology. 2. End-stage renal disease, on dialysis. Creatinine is up. Dr. Best has been notified that he is here and needs dialysis. His normal scheduled day is tomorrow. His electrolytes are stable. 3. History of diabetes mellitus. We will reconcile his home medications. Add a sliding scale as needed for coverage. 4. History of hypertension. We will restart his home medications and titrate as needed. DVT and gastrointestinal prophylaxis started. He is on Eliquis for his atrial fibrillation and we will continue this. 5. Case was discussed with Dr. Cade. 6. Hospital course dependent on clinical findings. Job ID: [id number]
[2020-04-11] MEDS ORDERED: HumaLOG 300 UNITS/3 ML VIAL SC PRN (20:48)
--- NOTE | 2020-04-11 23:57 | CON ---
DATE OF CONSULTATION: 04/11/2020 INDICATION FOR CONSULTATION: A 70-year-old gentleman with intermittent atrial fibrillation. HISTORY OF PRESENT ILLNESS: This very unfortunate 70-year-old gentleman, who has end-stage renal disease on hemodialysis, presented yesterday to the emergency room after he complained of some nausea, vomiting, and diarrhea. Since being in the hospital, he has had intermittent episodes of atrial fibrillation and converted to sinus rhythm and then back to an atrial fibrillation this morning. He has been converted to atrial fibrillation with rapid ventricular response. He has now undergone dialysis and is now back in sinus rhythm with a heart rate about 50 beats per minute. He denied any chest pain. He has been seen by Dr. Booker in the past. He does have a history of coronary artery disease and undergone stent placement many years ago. His other risk factors for coronary artery disease include hypertension and type 2 diabetes. At this time, he is asymptomatic. He says normally when he does not feel well, he can notice his heart beating fast. He goes home. He takes his medications and then, the heart rate goes back to normal. I asked, which medication he was taking and he said he was taking hydralazine and this would improve his heart rate. However, he is also taking Coreg and diltiazem. PAST MEDICAL HISTORY: Significant for end-stage renal disease. He is on hemodialysis and was dialyzed this morning. He has normally had dialysis Mondays, Wednesdays, and Fridays. He has history of hypertension, type 2 diabetes, paroxysmal atrial fibrillation, history of gout, and also had coronary artery disease as noted above. He has had surgery on his right eye. He recently at last surgery also had surgery on his right eye for glaucoma. He has also had a right first toe amputation. He has had a fistula placed. He has had a stent placed in the fistula in the right axillary area, where a shunt was placed previously. FAMILY HISTORY: Noncontributory. SOCIAL HISTORY: No history of alcohol or tobacco abuse. MEDICATIONS: Include; 1. Vitamin D3. 2. Trazodone. 3. Renvela. 4. Reglan. 5. Claritin. 6. Diltiazem 240 mg a day. 7. Amiodarone 200 mg a day. 8. Hydralazine 50 mg b.i.d. 9. Aspirin 81 mg a day. 10. Eliquis 5 mg b.i.d. 11. Zetia 10 mg a day. 12. Coreg 25 mg b.i.d. 13. He is also taking insulin. ALLERGIES: HE IS ALLERGIC TO IODINE AND PENICILLIN. REVIEW OF SYSTEMS: A 12-point review of systems is unremarkable except for what was recently with the nausea, vomiting, and diarrhea and visual changes as he has undergone some glaucoma surgery. PHYSICAL EXAMINATION: GENERAL: Reveals a well-developed, well-nourished gentleman, who is in no acute distress at this time. He is alert. He is oriented. He has decreased vision. VITAL SIGNS: Blood pressure was elevated prior to his dialysis, it was 197/87. Heart rate at this time is noted, it is about 50 beats per minute. Respiratory rate is 18. He is afebrile. O2 saturations are more than 90% on room air. HEENT: Shows the head to be normocephalic and atraumatic. Carotid pulses are present. I did not hear any gross bruits. CHEST: Actually seems to be clear to auscultation. I did not hear any rales, rhonchi, or wheezing. CARDIOVASCULAR: Reveals a regular rhythm at this time earlier somewhat tachycardia when I first started the evaluation. He has since converted to a sinus rhythm within 5 minutes after I did my initial assessment. There were no gross murmurs or heaves or thrills. ABDOMEN: Obese with positive bowel sounds. No organomegaly or masses were noted. EXTREMITIES: Show no clubbing, cyanosis, or edema. SKIN: Warm and dry. Pulses are difficult to palpate in the lower extremities. He has a shunt fistula placement in the right arm. LABORATORY DATA: Shows a hemoglobin of 10.2, WBC of 6.9, and platelet count was 164,000. Electrolytes show a sodium of 137, potassium was 6.1 prior to undergoing dialysis, CO2 was 22, creatinine was 11.7 with a BUN of 85, and blood sugar is 145. Troponin I is 0.146 and then, decreased down to 0.129. Troponin on initial was 0.156 and then, has been decreasing since being in the hospital. EKG shows a sinus rhythm, sinus bradycardia at this time with no acute ST-segment changes. IMPRESSION AND PLAN: 1. Paroxysmal atrial fibrillation with tachy/balta syndrome and occasionally then convert back to sinus rhythm. I would suggest he continue on the present medications. He may need eventually have an increase in the amiodarone. We will leave this up to the discretion of his primary patient care manager. We could always entertain the idea of an electrophysiological evaluation. 2. History of coronary artery disease, which appears to be stable. We will continue his beta blockers. 3. History of hypertension. This is somewhat poorly controlled, but is better after dialysis. 4. End-stage renal disease. He will continue with hemodialysis three days a week. 5. Type 2 diabetes. This also appears to be somewhat under poor control. Earlier on his admission was 98. Since being admitted, his blood pressure has been anywhere between 145 to 254. We will continue his present medications at this time. He is converted back to sinus rhythm. He has taken Eliquis 5 mg b.i.d. and I would continue this medication. Should he continue to have intermittent atrial fibrillation, I would suggest perhaps an EP consultation. He may be a candidate to undergo an ablation of the atrial fibrillation since he is 70-year-old, this may be an option. Job ID: [id number]
--- NOTE | 2020-04-12 01:26 | CON ---
DATE OF CONSULTATION: 04/11/2020 REASON FOR CONSULTATION: Paroxysmal atrial fibrillation. HEALTH CARE ANALYST: Puneet Best M.D. PCP: Dr. Madsen. PRIMARY EVENT MARKETING REPRESENTATIVE: Cade Booker M.D. HISTORY OF PRESENT ILLNESS: Mr. Kramer is a very pleasant 70-year-old male with a history of paroxysmal atrial fibrillation; hypertension; diabetes; and end-stage renal disease, on hemodialysis. He had several days history of nausea and vomiting, and was not taking his medications. He had atrial fibrillation and rapid ventricular response during dialysis, which converted to sinus rhythm and is now sinus bradycardia. His nausea and vomiting have improved. He is currently taking his medications without difficulty. At home, he has occasional palpitations, which usually are self-limited and do not have exacerbating or alleviating factors. Mild in intensity. He has no chest discomfort, syncope , or falls. PAST MEDICAL HISTORY: 1. Dyslipidemia. 2. Paroxysmal atrial fibrillation. 3. Type 2 diabetes mellitus. 4. End-stage renal disease, on dialysis. 5. Hypertension. PAST SURGICAL HISTORY: 1. Cataract surgery. 2. AV fistula. 3. Right 1st toe amputation. 4. Right eye surgery last week for glaucoma. ALLERGIES: IODINE AND PENICILLIN, WHICH BOTH CAUSE A RASH. OUTPATIENT MEDICATIONS: 1. Eliquis 5 mg b.i.d. 2. Coreg 25 mg b.i.d. 3. Diltiazem 240 mg daily. 4. Pepcid 20 mg daily. 5. Amiodarone 200 mg daily. FAMILY HISTORY: Cancer and diabetes. SOCIAL HISTORY: He lives in an apartment in [place]. He lives alone. He has a daughter and son who also live in [place]. He is a nonsmoker. No alcohol use. He is . REVIEW OF SYSTEMS: No melena, bright red blood per rectum, or hematemesis. No seizures, syncope, or strokes. No chest discomfort, orthopnea, or edema. PHYSICAL EXAMINATION: GENERAL: Alert and oriented x4. No apparent distress. VITAL SIGNS: Blood pressure 117/56, pulse 88, respiratory rate 12, 97% on room air. Afebrile. HEENT: No lesions, sclerae clear. SKIN: No lesions. EXTREMITIES: No edema. LABORATORY DATA: EKG, atrial fibrillation and rapid ventricular response. EKG #2, sinus bradycardia. WBC 6.9, hemoglobin 10.2, platelets 164. Sodium 137, potassium 6.1 (dialyzed afterwards), BUN 85, creatinine 11.7, glucose 164, AST 13, and ALT 14. Troponin negative. IMPRESSION: 1. Paroxysmal atrial fibrillation, spontaneously converted to sinus rhythm. He is on amiodarone and Eliquis at home. He was not taking these for several days due to his gastrointestinal illness. 2. Hypertension. 3. End-stage renal disease, on dialysis. 4. Dyslipidemia. RECOMMEND: 1. Restart amiodarone and Eliquis. 2. Okay to discharge from a cardiac electrophysiology standpoint. I would continue current therapy and not change his regimen at this time. 3. Follow up with Dr. Booker as an outpatient. Job ID: [id number] BRAD
--- NOTE | 2020-04-12 07:23 | PDOC.EP ---
- Subjective Date: 04/12/20 Time: 07:21 Interval History: Sitting up in bed. No complaints - Objective Allergies/Adverse Reactions: Allergies Allergy/AdvReac Type Severity Reaction Status Date / Time iodine Allergy Verified 04/10/20 18:08 Penicillins Allergy Hives Verified 04/10/20 18:08 Current Medications Acetaminophen (Tylenol) 650 mg PO Q4H PRN PRN Reason: Headache/Fever/Mild Pain (1-3) Last Admin: 04/11/20 21:20 Dose: 650 mg Amiodarone HCl (Cordarone) [address] [facility] Last Admin: 04/11/20 09:00 Dose: 200 mg Apixaban (Eliquis) [address] [facility] Last Admin: 04/11/20 20:27 Dose: 5 mg Carvedilol (Coreg) [address] [facility] Last Admin: 04/11/20 20:27 Dose: 25 mg Dextrose/Water (Dextrose 50%) 25 gm SLOW IVP PRN PRN PRN Reason: Hypoglycemia Diltiazem HCl (Cardizem Cd) [address] [facility] Last Admin: 04/11/20 09:00 Dose: 240 mg Famotidine (Pepcid) [address] [facility] Last Admin: 04/11/20 08:59 Dose: 20 mg Glucagon (Glucagon) 1 mg IM PRN PRN PRN Reason: Hypoglycemia Guaifenesin/Dextromethorphan (Mucinex Dm) [address] [facility] Last Admin: 04/11/20 20:28 Dose: 1 tab Dextrose/Water (D5w) 1,000 mls @ 0 mls/hr IV .Q0M PRN PRN Reason: Hypoglycemia Insulin Human Lispro (Humalog) 0 units SC .MILD SLIDING SCALE PRN PRN Reason: Mild Correctional Scale Insulin Human Lispro (Humalog) 0 units SC .BEDTIME SLIDING SC PRN PRN Reason: Bedtime Correctional Scale Last Admin: 04/11/20 21:20 Dose: 3 unit Sodium Chloride (Flush - Normal Saline) 10 ml IVF PRN PRN PRN Reason: Saline Flush Vital Signs & Weight: Vital Signs Temp Pulse Resp BP Pulse Ox 04/12/20 04:00 98.3 F 52 L 18 155/69 H 94 L 04/11/20 19:25 98.6 F 51 L 16 159/61 H 97 Weight 247 lb 9.266 oz I/O: I/O 04/11/20 04/12/20 04/13/20 06:59 06:59 06:59 Intake Total 630 Balance 630 - Labs Result Diagrams: 04/11/20 04:00 04/11/20 04:00 - Assessment/Plan Assessment/Plan: Paroxysmal atrial fibrillation - Off medication on admission. Eliquis and amiodarone restarted. Paroxysmal atrial fibrillation overnight that converted to sinus rhythm. Okay to discharge on current medical regimen from Cardiac EP standpoint. Follow up with his primary squeezer operator, Dr. Booker, as an outpatient.
[2020-04-12] MEDS: Apixaban 2.5 MG TAB PO SCH (09:03)
[2020-04-12] MEDS: Famotidine 20 MG TAB PO SCH (09:03)
[2020-04-12] MEDS: Acetaminophen 325 MG TAB PO PRN (09:04)
[2020-04-12] MEDS: guaiFENesin/DM ER PO SCH (09:05)
[2020-04-12] MEDS: Amiodarone 200 MG TAB PO SCH (09:11)
[2020-04-12] MEDS: Carvedilol 25 MG TAB PO SCH (09:11)
[2020-04-12 11:51] VITALS: TEMP 98
[2020-04-12 12:27] VITALS: BP 193/79
--- NOTE | 2020-04-13 00:58 | DIS ---
DATE OF ADMISSION: 04/10/2020 DATE OF DISCHARGE: 04/12/2020 DISCHARGE DIAGNOSES: 1. Gastroenteritis, likely viral with nausea, vomiting, and diarrhea. 2. End-stage renal disease, on dialysis. 3. Atrial fibrillation with rapid ventricular response. 4. Diabetes. 5. Hypertension. HISTORY OF PRESENT ILLNESS: The patient is a 70-year-old male with a history of AFib following with Dr. Booker. The patient has end-stage renal disease, on dialysis, followed by Dr. Puneet Best. The patient presented to the emergency department with nausea, vomiting, and diarrhea symptoms. He had a KUB that look like it was consistent with some enteritis. The patient was also noted to be in atrial fibrillation with rapid ventricular response. His labs overall were generally unremarkable. HOSPITAL COURSE: The patient was started on a diltiazem drip in the emergency department. He was subsequently admitted for gastroenteritis symptoms and AFib with RVR. He was admitted to the telemetry unit. Prior to leaving the emergency department, he converted back to sinus rhythm with sinus bradycardia in the 50s. He was subsequently hydrated gently. The patient had apparently missed his 2 prior dialysis sessions. His paratransit operator, Dr. Best, was contacted and it was arranged for him to have dialysis while here in the hospital. The patient's nausea, vomiting, diarrhea completely resolved and he was able to eat a regular diet. He had no further symptoms. He did have a recurrence of atrial fibrillation and therefore was seen in consultation by Dr. Wells, who in turn asked EP to see the patient. Dr. Marcus saw the patient and felt it was appropriate for him to continue with his current medications and follow up with his astrobiologist for future considerations. With that, he was felt to be stable for discharge. PHYSICAL EXAMINATION: VITAL SIGNS: On the day of discharge, temperature is 98.0, pulse 50, respirations 16, O2 saturation 97% on room air, BP is 141/63. GENERAL: He was awake and alert. HEENT: The patient has a hard plastic cover over his right eye after having recent surgery by grounds caretaker, Dr. Valverde. HEART: Regular without murmurs. LUNGS: Clear bilaterally. ABDOMEN: Soft, nontender, and nondistended. EXTREMITIES: Had no edema. DISPOSITION: The patient is discharged to home in stable condition. MEDICATIONS: He will be on: 1. Vitamin D3 2000 units daily. 2. Trazodone 25 mg at bedtime. 3. Renvela 2400 mg t.i.d. 4. Reglan 5 mg b.i.d. 5. Claritin 10 mg daily. 6. Diltiazem CD 240 mg daily. 7. Amiodarone 200 mg daily. 8. Hydralazine 50 mg b.i.d. 9. Aspirin 81 mg daily. 10. Eliquis 5 mg b.i.d. 11. Zetia 10 mg at bedtime. 12. Carvedilol 25 mg b.i.d. 13. Levemir 50 units subcu q.a.m. ACTIVITY: As tolerated. DIET: He will be on a renal diet. FOLLOWUP: He is to follow up with Dr. Cade Booker in 2 to 3 weeks and his PCP, Dr. Milagros Madsen in 7 days. He can return to the hospital at any time he has the need to do so in the interim. Job ID: [id number] [id number]
== END 2020-04-12 12:19 | disposition home or self-care (01) | DRG 308 ==
LOC: ERS 07:19 → ERHOLD 11:03 → 2NO 17:57
PROVIDERS: ADMIT Internal Medicine; ATTEND Internal Medicine
PROC: 5A1D70Z Performance of Urinary Filtration, Intermittent, Less than 6 Hours Per Day (ICD-10-PCS; principal; 2020-04-11)
DX: I48.0 Paroxysmal atrial fibrillation (principal); N18.6 End stage renal disease; I12.0 Hypertensive chronic kidney disease with stage 5 chronic kidney disease or end stage renal disease; A08.4 Viral intestinal infection, unspecified; Z20.828 Contact with and (suspected) exposure to other viral communicable diseases; E78.5 Hyperlipidemia, unspecified; E78.00 Pure hypercholesterolemia, unspecified; M10.9 Gout, unspecified; I25.10 Atherosclerotic heart disease of native coronary artery without angina pectoris; I49.5 Sick sinus syndrome; E11.22 Type 2 diabetes mellitus with diabetic chronic kidney disease; E11.65 Type 2 diabetes mellitus with hyperglycemia; Z95.5 Presence of coronary angioplasty implant and graft; Z98.49 Cataract extraction status, unspecified eye; Z99.2 Dependence on renal dialysis; Z88.0 Allergy status to penicillin; Z91.041 Radiographic dye allergy status; Z89.411 Acquired absence of right great toe; Z79.01 Long term (current) use of anticoagulants; Z79.4 Long term (current) use of insulin; Z79.899 Other long term (current) drug therapy; Z79.82 Long term (current) use of aspirin
CPT/HCPCS: 36415; 36416; 71045; 74022; 80053; 82553; 83690; 83735; 84100; 84484; 85025; 87635; 90935; 93005; G0257; J1815; J2405; U0003

== ENCOUNTER 2020-07-31 02:50 | Observation (INO) | payer MEDICARE, OTHER ==
[2020-07-31] MEDS ORDERED: Dextrose 50% Abboject 50 ML SYRINGE ONE ×2 (03:13→07:06)
[2020-07-31] MEDS ORDERED: Insulin Regular 300 UNITS/3 ML VIAL ONE ×2 (03:13→07:06)
[2020-07-31] MEDS ORDERED: Furosemide 40 MG/4 ML VIAL ONE (03:13)
[2020-07-31 04:19] LABS: Anion Gap 22 mmol/L (10-20); BUN (Urea Nitrogen) 76 mg/dL (8.4-25.7); Calc. Creatinine Clearance 0 mL/min (70-130); Carbon Dioxide 25 mmol/L (23-31); Chloride 102 mmol/L (98-107); Glucose 146 mg/dL (83-110); Sodium 142 mmol/L (136-145)
[2020-07-31 04:37] LABS: Potassium 6.7 mmol/L (3.5-5.1)
--- NOTE | 2020-07-31 06:22 | PDOC.HHP ---
Hospitalist HPI - History of Present Illness Nausea and vomiting, missed dialysis History of Present Illness: This is a 70-year-old male patient with a history of ESRD, arrhythmias, atrial fibrillation, type 2 diabetes mellitus who was transferred from [place] on account of hyperkalemia. He complained of nausea vomiting and lower abdominal pain. He had apparently missed his last dialysis and symptoms started on the day of presentation. He received ondansetron and labetalol at outside hospital and transferred here for At presentation blood pressure was 209/81, pulse 72, respirate 18, saturation 98 on room air. He was afebrile. His potassium was 5.9 at outside facility. He had no concerning EKG changes. His chest x-ray at the outside facility was concerning for pulmonary congestion. His Covid test was negative. He was given dextrose and insulin as well as Lasix here. Nephrology was consulted for dialysis. Hospitalist team was consulted for admission. Hospitalist ROS - Review of Systems Constitutional: reports: weakness, malaise. denies: fever, chills, sweats Respiratory: reports: cough, dry, shortness of breath, SOB with excertion. denies: hemoptysis Cardiovascular: denies: chest pain, palpitations, orthopnea, paroxysmal noc. dyspnea Gastrointestinal: reports: nausea, vomiting, abdominal pain. denies: diarrhea, constipation Neurological: reports: weakness, numbness, incoordination All other systems reviewed; all pertinent +/- noted in HPI/Subj - Medication Medications: Medications: Currently refer to ambulatory order list. Allergies: Iodine, penicillin Hospitalist History - Past Medical History Other Medical History: ESRD, diabetes mellitus, hypertension - Past Surgical History Other Surgical History: Cataract surgery, right big toe surgery amputation, - Family History Family History: reports: no pertinent history - Social History Smoking Status: Never smoker Drugs: reports: none Living Situation: With Family - Exam General Appearance: awake alert, ill appearing Eye: PERRL, anicteric sclera ENT: normocephalic atraumatic Heart: RRR, no murmur, no gallops, no rubs, normal peripheral pulses Respiratory - other findings: Coarse breath sounds bilaterally. Gastrointestinal: soft, non-tender, non-distended, normal bowel sounds Neurological: cranial nerve grossly intact, no weakness Musculoskeletal: normal tone Psychiatric: normal affect, A&O x 3 Hospitalist Results - Labs Result Diagrams: 07/31/20 12:23 Lab results: Sodium 142 mmol/L (136-145) 07/31/20 03:13 Potassium 6.7 mmol/L (3.5-5.1) H* 07/31/20 03:13 Chloride 102 mmol/L (98-107) 07/31/20 03:13 Carbon Dioxide 25 mmol/L (23-31) 07/31/20 03:13 BUN 76 mg/dL (8.4-25.7) H 07/31/20 03:13 Creatinine 11.91 mg/dL (0.7-1.3) H 07/31/20 03:13 Glucose 146 mg/dL (83-110) H 07/31/20 03:13 Calcium 9.0 mg/dL (7.8-10.44) 07/31/20 03:13 Hospitalist H&P A/P - Plan Plan: 70-year-old male patient with history of ESRD, diabetes mellitus hypertension transferred from outside hospital on account of hyperkalemia and also had missed his last dialysis. Symptoms likely secondary to uremia and complications of ESRD.has missed dialysis. Hyperkalemia Secondary to missing dialysis Received insulin and dextrose and Lasix We will add Kayexalate Monitor BMP Nephrology consultedpending dialysis. Nausea and vomiting Likely secondary to missing dialysis With dialysis. As needed Zofran. Volume overload In the setting of ESRD Central Lab Technician. Diabetes mellitus Start correctional insulin Monitor glucose. CODE STATUSfull code DVT prophylaxisHeparin
[2020-07-31] MEDS ORDERED: Calcium Chloride 1 GM/10 ML Abboject SYRINGE ONE (06:41)
[2020-07-31] MEDS ORDERED: Sodium Bicarbonate 2.5 MEQ/5 ML VIAL ONE (06:41)
[2020-07-31] MEDS ORDERED: Dextrose 50% Abboject 50 ML SYRINGE SLOW IVP PRN (07:10)
[2020-07-31] MEDS ORDERED: Dextrose 5% in Water 1,000 ML IV PRN (07:10)
[2020-07-31] MEDS ORDERED: Metoprolol Tartrate 25 MG TAB PO SCH (07:15)
[2020-07-31] MEDS ORDERED: Heparin 10,000 UNITS/ 10 ML VIAL ONE (11:59)
[2020-07-31 12:51] VITALS: BMI 33.5
[2020-07-31 12:58] LABS: Anion Gap 17 mmol/L (10-20); BUN (Urea Nitrogen) 38 mg/dL (8.4-25.7); Calc. Creatinine Clearance 15 mL/min (70-130); Carbon Dioxide 29 mmol/L (23-31); Chloride 96 mmol/L (98-107); Glucose 113 mg/dL (83-110); Potassium 4.8 mmol/L (3.5-5.1); Sodium 137 mmol/L (136-145)
[2020-07-31] MEDS ORDERED: traZODone HCl 50 MG TAB PO PRN (13:53)
[2020-07-31] MEDS ORDERED: Albuterol Sulfate 1.25 MG/3 ML NEB INH PRN (13:53)
[2020-07-31] MEDS ORDERED: Amiodarone 200 MG TAB PO SCH (14:00)
[2020-07-31] MEDS ORDERED: Carvedilol 25 MG TAB PO SCH (14:00)
[2020-07-31] MEDS: hydrALAZINE 25 MG TAB PO SCH (16:50)
[2020-07-31] MEDS: Sevelamer Carbonate 800 MG TAB PO SCH (16:50)
[2020-07-31] MEDS: HumaLOG 300 UNITS/3 ML VIAL SC PRN (16:51)
[2020-07-31] MEDS ORDERED: Non-Formulary Item 1 EACH (Insulin Detemir [Levemir Flextouch] 100 UNIT/ML Insuln.Pen) SQ SCH (21:00)
[2020-07-31] MEDS ORDERED: Apixaban 5 MG TAB PO SCH (21:00)
[2020-07-31] MEDS ORDERED: Atorvastatin Calcium 10 MG TAB PO SCH (21:00)
[2020-07-31] MEDS: Insulin Glargine 25 UNITS in Pre-Filled Syringe SC SCH (21:19)
[2020-07-31] MEDS: Apixaban 2.5 MG TAB PO SCH (21:19)
[2020-08-01] MEDS: HumaLOG 300 UNITS/3 ML VIAL SC PRN (05:33)
[2020-08-01 06:52] LABS: #Basophils 0.1 thou/uL (0.0-0.2); #Eosinphils 0.6 thou/uL (0.0-0.7); #Lymphocytes 1.4 thou/uL (1.20-3.40); #Monocytes 0.4 thou/uL (0.11-0.59); #Neutrophils 4.2 thou/uL (1.40-6.50); %Basophils 1.1 % (0.0-1.0); %Eosinophils 9.3 % (0.0-10.0); %Lymphocytes 20.5 % (21.0-51.0); %Monocytes 6.2 % (0.0-10.0); %Neutrophils 62.9 % (42.0-75.0); Hemoglobin 10.1 g/dL (14.0-18.0); Mean Corpuscular HGB CONC 30.2 g/dL (32.0-36.0); Mean Corpuscular Volume 79.6 fL (78.0-98.0); Mean Platelet Volume 11.1 fL (7.4-10.4); Platelet Count 169 thou/uL (130-400); RBC Distribution Width 13.7 % (11.5-14.5); Red Blood Cell (RBC) Count 4.21 mill/uL (4.70-6.10); White Blood Cell (WBC) Count 6.6 thou/uL (4.8-10.8)
[2020-08-01 07:15] LABS: Anion Gap 15 mmol/L (10-20); BUN (Urea Nitrogen) 50 mg/dL (8.4-25.7); Calc. Creatinine Clearance 12 mL/min (70-130); Calcium 8.9 mg/dL (7.8-10.44); Carbon Dioxide 30 mmol/L (23-31); Chloride 97 mmol/L (98-107); Glucose 157 mg/dL (83-110); Potassium 5.2 mmol/L (3.5-5.1); Sodium 137 mmol/L (136-145)
[2020-08-01 07:39] VITALS: TEMP 98.4
[2020-08-01] MEDS ORDERED: Ezetimibe 10 MG TAB PO SCH (09:00)
[2020-08-01] MEDS ORDERED: Aspirin 81 mg Enteric Coated Tablet PO SCH (09:00)
[2020-08-01] MEDS: hydrALAZINE 25 MG TAB PO SCH (13:34)
[2020-08-01] MEDS: Apixaban 2.5 MG TAB PO SCH (13:34)
[2020-08-01] MEDS: Insulin Glargine 25 UNITS in Pre-Filled Syringe SC SCH (13:34)
[2020-08-01] MEDS: Sevelamer Carbonate 800 MG TAB PO SCH ×2 (13:35)
[2020-08-01 13:59] VITALS: BP 118/73
--- NOTE | 2020-08-01 15:35 | PDOC.DS.DS ---
Provider - Provider Date of Admission: 07/31/20 04:10 Date of Discharge: 08/01/20 Admitting Provider: Gino Brady MD Primary Care Physician: Milagros Madsen MD Course - Hospital Course Hospital Course: Patient is a very pleasant 70-year-old male with history of end-stage renal disease on dialysis who presented to the hospital for abdominal pain nausea vomiting. Patient stated that he missed dialysis due to New Year's his right did not come pick him up. He was noted to have high potassium which was treated after dialysis. Patient's nausea vomiting abdominal pain resolved. He tolerated his meals and he was discharged the next day after dialysis I did speak with the insurance case manager to make sure his right has been set up for the oncoming dialysis days. Patient has incisional disease and is on dialysis I will decrease the Eliquis dose to 2.5 mg twice daily instead of 5 mg twice daily Resuscitation Status: 07/31/20 07:08 Resuscitation Status Routine Resuscitation Status: FULL: Full Resuscitation - Labs Lab Results: 08/01/20 06:17 08/01/20 06:17 Abnormal Lab Results - Last 48 hrs 07/31/20 03:13: Potassium 6.7 H*, Anion Gap 22 H, BUN 76 H, Creatinine 11.91 H 07/31/20 12:23: Chloride 96 L, BUN 38 H, Creatinine 7.26 H 08/01/20 06:17: Potassium 5.2 H, Chloride 97 L, BUN 50 H, Creatinine 8.98 H 08/01/20 06:17: RBC 4.21 L, Hgb 10.1 L, Hct 33.6 L, MCH 24.0 L, MCHC 30.2 L, MPV 11.1 H, Lymphocytes % 20.5 L, Basophils % 1.1 H - Physical Exam Vitals: Vital Signs (12 hours) Temp Pulse Resp BP BP Pulse Ox 08/01/20 13:34 82 118/73 08/01/20 07:37 98.4 F 82 18 168/88 H 98 08/01/20 04:45 98 F 67 18 155/64 H 98 Weight Weight 247 lb Physical Exam: The patient was seen and examined on the day of discharge. Problem - Discharge Plan Assessment: 1. Hyperkalemia #2 abdominal pain nausea vomiting resolved #3 end-stage renal disease on dialysis Plan - Discharge Medications Prescriptions: Apixaban [Eliquis] 2.5 mg PO BID #60 tab Home Medications: Medication Instructions Recorded Confirmed Type Amiodarone [Cordarone] 200 mg PO DAILY 04/10/20 07/31/20 History Aspirin [Ecotrin Low Strength] 81 mg PO DAILY 04/10/20 07/31/20 History Diltiazem CD [Cardizem CD] 240 mg PO DAILY 04/10/20 07/31/20 History Ezetimibe 10 mg PO DAILY 04/10/20 07/31/20 History Insulin Detemir [Levemir Flextouch] 25 unit SQ BID 04/10/20 07/31/20 History Sevelamer Carbonate [Renvela] 2,400 mg PO TID- 04/10/20 07/31/20 History hydrALAZINE HCl [Hydralazine HCl] 50 mg PO BID- 04/10/20 07/31/20 History traZODone HCl [Trazodone HCl] 25 mg PO HS PRN 04/10/20 07/31/20 History Albuterol Sulfate [Proair 90 mcg IH [id number] PRN 07/31/20 07/31/20 History Digihaler] Carvedilol [Coreg] 12.5 mg PO BID 07/31/20 07/31/20 History Simvastatin 20 mg PO HS 07/31/20 07/31/20 History Apixaban [Eliquis] 2.5 mg PO BID #60 tab 08/01/20 Rx Allergies: iodine Allergy (Verified 04/10/20 18:08) Penicillins Allergy (Verified 04/10/20 18:08) Hives - Discharge Instructions Discharge Instructions:: please follow up with your primary care doctor and your kidney doctor. you will need your blood work to be checked in dialysis. Activity:: Activity as Tolerated Nourishment:: Heart Healthy Diet, Renal Diet - Follow up Plan Referrals: Milagros Madsen MD [Primary Care Provider] - 7 Days Disposition: HOME Quality - Care Measures CORE MEASURES:: N/A
== END 2020-08-01 13:50 | disposition home or self-care (01) ==
LOC: ERS 02:50 → INTOOBSV 04:10 → T4-A 04:10
PROVIDERS: ADMIT Student in an Organized Health Care Education/Training Program; ATTEND Student in an Organized Health Care Education/Training Program
DX: E87.5 Hyperkalemia (principal); R10.9 Unspecified abdominal pain; R11.2 Nausea with vomiting, unspecified; I12.0 Hypertensive chronic kidney disease with stage 5 chronic kidney disease or end stage renal disease; E11.22 Type 2 diabetes mellitus with diabetic chronic kidney disease; N18.6 End stage renal disease; I48.91 Unspecified atrial fibrillation; E87.70 Fluid overload, unspecified; I25.10 Atherosclerotic heart disease of native coronary artery without angina pectoris; E78.00 Pure hypercholesterolemia, unspecified; F17.220 Nicotine dependence, chewing tobacco, uncomplicated; Z79.4 Long term (current) use of insulin; Z79.82 Long term (current) use of aspirin; Z79.899 Other long term (current) drug therapy; Z88.0 Allergy status to penicillin; Z91.041 Radiographic dye allergy status; Z99.2 Dependence on renal dialysis; Z89.411 Acquired absence of right great toe
CPT/HCPCS: 36415; 36416; 80048; 85025; 90935; 93005; 96374; 96375; G0257; G0378; J1644; J1815; J1940

== ENCOUNTER 2021-06-26 08:22 | Inpatient (IN) | payer MEDICARE, OTHER ==
[2021-06-26 09:16] LABS: #Basophils 0.1 thou/uL (0.0-0.2); #Eosinphils 0.8 thou/uL (0.0-0.7); #Lymphocytes 1.4 thou/uL (1.20-3.40); #Monocytes 0.4 thou/uL (0.11-0.59); #Neutrophils 3.8 thou/uL (1.40-6.50); %Basophils 0.8 % (0.0-1.0); %Lymphocytes 21.4 % (21.0-51.0); %Monocytes 6.2 % (0.0-10.0); %Neutrophils 58.7 % (42.0-75.0); Hemoglobin 10.5 g/dL (14.0-18.0); Mean Corpuscular HGB CONC 31.7 g/dL (32.0-36.0); Mean Corpuscular Hemoglobin 26.7 pg (27.0-31.0); Mean Corpuscular Volume 84.1 fL (78.0-98.0); Mean Platelet Volume 10.5 fL (7.4-10.4); Platelet Count 166 thou/uL (130-400); RBC Distribution Width 15.9 % (11.5-14.5); Red Blood Cell (RBC) Count 3.92 mill/uL (4.70-6.10); White Blood Cell (WBC) Count 6.5 thou/uL (4.8-10.8)
[2021-06-26 09:38] LABS: ALT (SGPT) 13 U/L (8-55); AST (SGOT) 11 U/L (5-34); Albumin 3.5 g/dL (3.4-4.8); Alkaline Phosphatase 144 U/L (40-110); Anion Gap 20 mmol/L (10-20); BUN (Urea Nitrogen) 45 mg/dL (8.4-25.7); Bilirubin, Total 0.4 mg/dL (0.2-1.2); Calc. Creatinine Clearance 0 mL/min (70-130); Calcium 9.3 mg/dL (7.8-10.44); Carbon Dioxide 19 mmol/L (23-31); Chloride 99 mmol/L (98-107); Globulin 3.6 g/dL (2.4-3.5); Glucose 177 mg/dL (83-110); Potassium 5.3 mmol/L (3.5-5.1); Protein, Total 7.1 g/dL (5.8-8.1); Sodium 133 mmol/L (136-145)
[2021-06-26] MEDS ORDERED: Fentanyl 100 MCG/2 ML VIAL ONE (10:09)
[2021-06-26] MEDS ORDERED: Dextrose 50% Abboject 50 ML SYRINGE SLOW IVP PRN ×2 (11:41→13:51)
[2021-06-26] MEDS ORDERED: Dextrose 5% in Water 1,000 ML IV PRN ×2 (11:41→13:51)
[2021-06-26] MEDS ORDERED: hydrALAZINE 20 MG/ML VIAL SLOW IVP PRN (11:41)
[2021-06-26] MEDS ORDERED: Ondansetron PF 4 MG/2 ML Vial IVP PRN (11:41)
[2021-06-26] MEDS ORDERED: Morphine 2 MG/ML VIAL SLOW IVP PRN (11:44)
[2021-06-26 14:03] VITALS: BMI 33.3
[2021-06-26] MEDS ORDERED: traZODone HCl 50 MG TAB PO PRN (14:03)
[2021-06-26] MEDS ORDERED: Albuterol Sulfate 1.25 MG/3 ML NEB EZPAP PRN (14:07)
[2021-06-26] MEDS: Acetaminophen 325 MG TAB PO SCH ×2 (14:26→18:13)
[2021-06-26] MEDS: traMADol HCl 50 MG TAB PO SCH (14:27)
[2021-06-26] MEDS: Morphine 4 MG/ML VIAL SLOW IVP PRN (15:10)
[2021-06-26] MEDS: Insulin Regular 300 UNITS/3 ML VIAL SC PRN ×2 (16:01→21:48)
[2021-06-26 17:50] LABS: HBSAg Index 0.34 S/CO (0-0.99); Hep B Surf Ag Non-Reactive S/CO (NonReactive)
[2021-06-26] MEDS ORDERED: Lantus 1000 UNITS/10 ML VIAL SC SCH (21:00)
[2021-06-26] MEDS ORDERED: Famotidine 20 MG TAB PO SCH (21:00)
[2021-06-26] MEDS: Lantus 1000 UNITS/10 ML VIAL SC SCH (21:46)
[2021-06-26] MEDS: Timolol 0.5% Ophth Soln 5 ml Bottle EA EYE SCH (21:49)
[2021-06-26] MEDS: Carvedilol 25 MG TAB PO SCH (21:49)
[2021-06-26 22:13] LABS: SARS-CoV-2 PCR by NAA Not Detected (NotDetected)
[2021-06-27] MEDS: traMADol HCl 50 MG TAB PO SCH (00:07)
[2021-06-27] MEDS: Acetaminophen 325 MG TAB PO SCH ×3 (00:09→12:27)
[2021-06-27] MEDS: Insulin Regular 300 UNITS/3 ML VIAL SC PRN (01:39)
[2021-06-27 05:54] LABS: #Basophils 0.1 thou/uL (0.0-0.2); #Eosinphils 0.6 thou/uL (0.0-0.7); #Lymphocytes 1.3 thou/uL (1.20-3.40); #Monocytes 0.7 thou/uL (0.11-0.59); #Neutrophils 3.5 thou/uL (1.40-6.50); %Basophils 1.2 % (0.0-1.0); %Eosinophils 9.8 % (0.0-10.0); %Lymphocytes 21.7 % (21.0-51.0); %Monocytes 11.1 % (0.0-10.0); %Neutrophils 56.2 % (42.0-75.0); Hemoglobin 9.1 g/dL (14.0-18.0); Mean Corpuscular HGB CONC 30.9 g/dL (32.0-36.0); Mean Corpuscular Hemoglobin 26.2 pg (27.0-31.0); Mean Corpuscular Volume 84.7 fL (78.0-98.0); Mean Platelet Volume 9.7 fL (7.4-10.4); Platelet Count 139 thou/uL (130-400); RBC Distribution Width 15.7 % (11.5-14.5); Red Blood Cell (RBC) Count 3.47 mill/uL (4.70-6.10); White Blood Cell (WBC) Count 6.2 thou/uL (4.8-10.8)
[2021-06-27 06:17] LABS: Anion Gap 13 mmol/L (10-20); BUN (Urea Nitrogen) 28 mg/dL (8.4-25.7); Calc. Creatinine Clearance 16 mL/min (70-130); Calcium 8.8 mg/dL (7.8-10.44); Carbon Dioxide 31 mmol/L (23-31); Chloride 97 mmol/L (98-107); Glucose 107 mg/dL (83-110); Magnesium 2.4 mg/dL (1.6-2.6); Potassium 4.9 mmol/L (3.5-5.1); Sodium 136 mmol/L (136-145)
[2021-06-27 06:21] LABS: Phosphorus 4.3 mg/dL (2.3-4.7)
[2021-06-27] MEDS: Sevelamer Carbonate 800 MG TAB PO SCH ×3 (07:47→16:57)
[2021-06-27] MEDS: Famotidine 20 MG TAB PO SCH (07:50)
[2021-06-27] MEDS: Carvedilol 25 MG TAB PO SCH ×2 (07:51→20:12)
[2021-06-27] MEDS: Cholecalciferol 1,000 UNITS (25 MCG) TAB PO SCH (07:52)
[2021-06-27] MEDS: Amiodarone 200 MG TAB PO SCH (07:52)
[2021-06-27] MEDS: Cinacalcet HCl 30 MG TAB PO SCH (07:52)
[2021-06-27] MEDS: Atorvastatin Calcium 10 MG TAB PO SCH (07:53)
[2021-06-27] MEDS: Lantus 1000 UNITS/10 ML VIAL SC SCH ×2 (07:58→20:13)
[2021-06-27] MEDS: Timolol 0.5% Ophth Soln 5 ml Bottle EA EYE SCH ×2 (08:01→20:13)
[2021-06-27] MEDS: Morphine 4 MG/ML VIAL SLOW IVP PRN (09:21)
[2021-06-27] MEDS ORDERED: Acetaminophen/Codeine 30-300mg Tablet PO SCH ×2 (10:30→16:00)
[2021-06-27] MEDS: Acetaminophen 500 MG TAB PO SCH ×2 (17:00→20:12)
[2021-06-27] MEDS: Acetaminophen/Codeine 30-300mg Tablet PO PRN (17:03)
[2021-06-27] MEDS: Acetaminophen/Codeine 30-300mg Tablet PO SCH (23:49)
[2021-06-28] MEDS: Acetaminophen 500 MG TAB PO SCH ×4 (04:27→20:25)
[2021-06-28] MEDS: Acetaminophen/Codeine 30-300mg Tablet PO SCH ×3 (04:27→23:43)
[2021-06-28 06:01] LABS: #Basophils 0.1 thou/uL (0.0-0.2); #Eosinphils 0.6 thou/uL (0.0-0.7); #Lymphocytes 1.4 thou/uL (1.20-3.40); #Monocytes 0.7 thou/uL (0.11-0.59); #Neutrophils 3.9 thou/uL (1.40-6.50); %Basophils 0.9 % (0.0-1.0); %Lymphocytes 21.4 % (21.0-51.0); %Neutrophils 57.7 % (42.0-75.0); Hemoglobin 8.4 g/dL (14.0-18.0); Mean Corpuscular HGB CONC 31.7 g/dL (32.0-36.0); Mean Corpuscular Hemoglobin 26.7 pg (27.0-31.0); Mean Corpuscular Volume 84.4 fL (78.0-98.0); Mean Platelet Volume 10.5 fL (7.4-10.4); Platelet Count 145 thou/uL (130-400); RBC Distribution Width 15.4 % (11.5-14.5); Red Blood Cell (RBC) Count 3.16 mill/uL (4.70-6.10); White Blood Cell (WBC) Count 6.7 thou/uL (4.8-10.8)
[2021-06-28 06:30] LABS: Anion Gap 17 mmol/L (10-20); BUN (Urea Nitrogen) 42 mg/dL (8.4-25.7); Calc. Creatinine Clearance 13 mL/min (70-130); Calcium 9.3 mg/dL (7.8-10.44); Carbon Dioxide 28 mmol/L (23-31); Chloride 95 mmol/L (98-107); Glucose 159 mg/dL (83-110); Magnesium 2.5 mg/dL (1.6-2.6); Phosphorus 5.4 mg/dL (2.3-4.7); Potassium 5.5 mmol/L (3.5-5.1); Sodium 134 mmol/L (136-145)
[2021-06-28] MEDS: Acetaminophen/Codeine 30-300mg Tablet PO PRN (08:05)
[2021-06-28] MEDS: Carvedilol 25 MG TAB PO SCH ×2 (08:07→20:25)
[2021-06-28] MEDS: prednisoLONE 1% Ophth Susp 5 ml Bottle EA EYE SCH (08:07)
[2021-06-28] MEDS: Sevelamer Carbonate 800 MG TAB PO SCH ×4 (08:13→18:26)
[2021-06-28] MEDS: Amiodarone 200 MG TAB PO SCH (08:15)
[2021-06-28] MEDS: Atorvastatin Calcium 10 MG TAB PO SCH (08:16)
[2021-06-28] MEDS: Cholecalciferol 1,000 UNITS (25 MCG) TAB PO SCH (08:17)
[2021-06-28] MEDS: Lantus 1000 UNITS/10 ML VIAL SC SCH ×2 (08:17→20:26)
[2021-06-28] MEDS: Famotidine 20 MG TAB PO SCH (08:17)
[2021-06-28] MEDS: Cinacalcet HCl 30 MG TAB PO SCH (08:17)
[2021-06-28] MEDS: Ascorbic Acid 500 mg Chewable Tablet PO SCH ×2 (11:26→20:25)
[2021-06-28] MEDS: Ferrous Sulfate 325 MG TAB PO SCH ×2 (11:26→20:25)
[2021-06-28] MEDS: Timolol 0.5% Ophth Soln 5 ml Bottle EA EYE SCH ×2 (11:27→20:26)
[2021-06-28] MEDS ORDERED: Morphine 4 MG/ML VIAL SLOW IVP PRN (12:02)
[2021-06-28] MEDS ORDERED: Clindamycin/D5W 900 MG in Premix Bag 1 BAG IVPB SCH (12:30)
[2021-06-28] MEDS ORDERED: Morphine 4 MG/ML VIAL SLOW IVP SCH (12:35)
[2021-06-28] MEDS ORDERED: Levofloxacin 500 mg/D5W 100 ml Premix Bag ONE (13:01)
[2021-06-28] MEDS ORDERED: Clindamycin/D5W 900 mg/50 ml Premix Bag ONE (13:01)
[2021-06-28] MEDS ORDERED: HYDROmorphone 2 MG/ML VIAL ONE (13:37)
[2021-06-28] MEDS ORDERED: Fentanyl 100 MCG/2 ML VIAL ONE (13:38)
[2021-06-28] MEDS ORDERED: ePHEDrine 50 MG/ML VIAL ONE (13:40)
[2021-06-28] MEDS ORDERED: PROPOFOL 200 MG/20 ML VIAL ONE (13:40)
[2021-06-28] MEDS ORDERED: PHENYLEPHRINE-NS 100 MCG/ML 10 ML SYRINGE ONE (13:40)
[2021-06-28] MEDS ORDERED: Dexamethasone 20 MG/5 ML VIAL ONE (13:40)
[2021-06-28] MEDS ORDERED: Lidocaine 1% PF 5 ML VIAL ONE (13:40)
[2021-06-28] MEDS ORDERED: Ondansetron PF 4 MG/2 ML Vial ONE (13:40)
[2021-06-28] MEDS ORDERED: ePHEDrine Sulfate 50 MG/10 ML VIAL ONE (14:21)
[2021-06-28] MEDS ORDERED: Phenylephrine 10 MG/ML VIAL ONE (14:22)
[2021-06-28] MEDS ORDERED: Promethazine HCl 25 MG/ML VIAL IVPB PRN (14:41)
[2021-06-28] MEDS ORDERED: Ondansetron HCl/PF 4 MG/2 ML Vial IVP PRN (14:41)
[2021-06-28] MEDS ORDERED: Promethazine HCl 25 MG/ML VIAL IM PRN (14:41)
[2021-06-28] MEDS: Insulin Regular 300 UNITS/3 ML VIAL SC PRN (16:38)
[2021-06-28] MEDS: Clindamycin/D5W 900 MG in Premix Bag 1 BAG IVPB SCH (22:00)
[2021-06-29] MEDS: Insulin Regular 300 UNITS/3 ML VIAL SC PRN ×4 (00:39→20:36)
[2021-06-29] MEDS: Acetaminophen 500 MG TAB PO SCH ×4 (02:18→20:33)
[2021-06-29] MEDS: Acetaminophen/Codeine 30-300mg Tablet PO SCH ×2 (04:22→13:17)
[2021-06-29] MEDS: Clindamycin/D5W 900 MG in Premix Bag 1 BAG IVPB SCH ×2 (05:50→14:16)
[2021-06-29 07:08] LABS: #Basophils 0.1 thou/uL (0.0-0.2); #Lymphocytes 0.9 thou/uL (1.20-3.40); #Monocytes 0.8 thou/uL (0.11-0.59); #Neutrophils 10.1 thou/uL (1.40-6.50); %Basophils 0.5 % (0.0-1.0); %Lymphocytes 7.2 % (21.0-51.0); %Monocytes 6.5 % (0.0-10.0); %Neutrophils 85.8 % (42.0-75.0); Mean Corpuscular HGB CONC 30.6 g/dL (32.0-36.0); Mean Corpuscular Hemoglobin 25.8 pg (27.0-31.0); Mean Corpuscular Volume 84.3 fL (78.0-98.0); Mean Platelet Volume 10.5 fL (7.4-10.4); Platelet Count 163 thou/uL (130-400); RBC Distribution Width 15.2 % (11.5-14.5); White Blood Cell (WBC) Count 11.8 thou/uL (4.8-10.8)
[2021-06-29 07:21] LABS: Anion Gap 19 mmol/L (10-20); BUN (Urea Nitrogen) 32 mg/dL (8.4-25.7); Calc. Creatinine Clearance 17 mL/min (70-130); Carbon Dioxide 28 mmol/L (23-31); Chloride 93 mmol/L (98-107); Glucose 197 mg/dL (83-110); Magnesium 2.3 mg/dL (1.6-2.6); Phosphorus 5.8 mg/dL (2.3-4.7); Potassium 5.8 mmol/L (3.5-5.1); Sodium 134 mmol/L (136-145)
[2021-06-29] MEDS: Lantus 1000 UNITS/10 ML VIAL SC SCH ×2 (08:31→20:35)
[2021-06-29] MEDS: Cinacalcet HCl 30 MG TAB PO SCH (08:33)
[2021-06-29] MEDS: Carvedilol 25 MG TAB PO SCH ×2 (08:33→20:35)
[2021-06-29] MEDS: Sevelamer Carbonate 800 MG TAB PO SCH ×3 (08:33→17:47)
[2021-06-29] MEDS: Ascorbic Acid 500 mg Chewable Tablet PO SCH ×2 (08:35→20:34)
[2021-06-29] MEDS: Famotidine 20 MG TAB PO SCH (08:35)
[2021-06-29] MEDS: Ferrous Sulfate 325 MG TAB PO SCH ×2 (08:36→20:34)
[2021-06-29] MEDS: Atorvastatin Calcium 10 MG TAB PO SCH (08:36)
[2021-06-29] MEDS: Cholecalciferol 1,000 UNITS (25 MCG) TAB PO SCH (08:36)
[2021-06-29] MEDS: Amiodarone 200 MG TAB PO SCH (08:36)
[2021-06-29] MEDS: prednisoLONE 1% Ophth Susp 5 ml Bottle EA EYE SCH (08:43)
[2021-06-29] MEDS: Timolol 0.5% Ophth Soln 5 ml Bottle EA EYE SCH ×2 (08:43→20:36)
[2021-06-29 10:11] LABS: Anion Gap 19 mmol/L (10-20); BUN (Urea Nitrogen) 33 mg/dL (8.4-25.7); Calc. Creatinine Clearance 17 mL/min (70-130); Carbon Dioxide 27 mmol/L (23-31); Chloride 93 mmol/L (98-107); Glucose 229 mg/dL (83-110); Potassium 5.6 mmol/L (3.5-5.1); Sodium 133 mmol/L (136-145)
[2021-06-29] MEDS: Acetaminophen/Codeine 30-300mg Tablet PO PRN (17:47)
[2021-06-30] MEDS: Acetaminophen/Codeine 30-300mg Tablet PO SCH ×4 (00:54→23:58)
[2021-06-30] MEDS: Insulin Regular 300 UNITS/3 ML VIAL SC PRN ×4 (04:10→16:55)
[2021-06-30] MEDS: Acetaminophen 500 MG TAB PO SCH ×4 (04:11→20:19)
[2021-06-30 05:59] LABS: #Lymphocytes 0.9 thou/uL (1.20-3.40); #Monocytes 0.9 thou/uL (0.11-0.59); #Neutrophils 6.9 thou/uL (1.40-6.50); %Basophils 0.1 % (0.0-1.0); %Eosinophils 0.2 % (0.0-10.0); %Lymphocytes 9.8 % (21.0-51.0); %Monocytes 10.3 % (0.0-10.0); %Neutrophils 79.5 % (42.0-75.0); Hemoglobin 8.6 g/dL (14.0-18.0); Mean Corpuscular Hemoglobin 25.7 pg (27.0-31.0); Mean Corpuscular Volume 85.7 fL (78.0-98.0); Mean Platelet Volume 9.8 fL (7.4-10.4); Platelet Count 177 thou/uL (130-400); RBC Distribution Width 15.2 % (11.5-14.5); Red Blood Cell (RBC) Count 3.36 mill/uL (4.70-6.10); White Blood Cell (WBC) Count 8.6 thou/uL (4.8-10.8)
[2021-06-30 06:13] LABS: Anion Gap 15 mmol/L (10-20); BUN (Urea Nitrogen) 23 mg/dL (8.4-25.7); Calc. Creatinine Clearance 22 mL/min (70-130); Calcium 10.1 mg/dL (7.8-10.44); Carbon Dioxide 29 mmol/L (23-31); Chloride 96 mmol/L (98-107); Glucose 191 mg/dL (83-110); Magnesium 2.3 mg/dL (1.6-2.6); Potassium 4.2 mmol/L (3.5-5.1); Sodium 136 mmol/L (136-145)
[2021-06-30] MEDS: Timolol 0.5% Ophth Soln 5 ml Bottle EA EYE SCH ×2 (08:34→20:22)
[2021-06-30] MEDS: Lantus 1000 UNITS/10 ML VIAL SC SCH ×2 (08:36→20:21)
[2021-06-30] MEDS: prednisoLONE 1% Ophth Susp 5 ml Bottle EA EYE SCH (08:36)
[2021-06-30] MEDS: Sevelamer Carbonate 800 MG TAB PO SCH ×3 (08:37→16:55)
[2021-06-30] MEDS: Ferrous Sulfate 325 MG TAB PO SCH ×2 (08:37→20:21)
[2021-06-30] MEDS: Polyethylene Glycol 3350 17 GM Packet PO SCH (08:37)
[2021-06-30] MEDS: Cholecalciferol 1,000 UNITS (25 MCG) TAB PO SCH (08:38)
[2021-06-30] MEDS: Amiodarone 200 MG TAB PO SCH (08:38)
[2021-06-30] MEDS: Senokot S 8.6-50 MG TAB PO SCH ×2 (08:38→20:21)
[2021-06-30] MEDS: Carvedilol 25 MG TAB PO SCH ×2 (08:39→20:20)
[2021-06-30] MEDS: Ascorbic Acid 500 mg Chewable Tablet PO SCH ×2 (08:39→20:21)
[2021-06-30] MEDS: Atorvastatin Calcium 10 MG TAB PO SCH (08:39)
[2021-06-30] MEDS: Cinacalcet HCl 30 MG TAB PO SCH (08:39)
[2021-06-30] MEDS: Apixaban 5 MG TAB PO SCH ×2 (08:40→20:21)
[2021-06-30] MEDS ORDERED: Heparin 5,000 UNITS/ML VIAL SC SCH (09:00)
[2021-06-30] MEDS: Acetaminophen/Codeine 30-300mg Tablet PO PRN (09:30)
[2021-07-01] MEDS: Acetaminophen 500 MG TAB PO SCH ×4 (03:38→20:09)
[2021-07-01] MEDS: Acetaminophen/Codeine 30-300mg Tablet PO SCH ×3 (03:38→23:52)
[2021-07-01 05:03] LABS: Anion Gap 15 mmol/L (10-20); BUN (Urea Nitrogen) 36 mg/dL (8.4-25.7); Calc. Creatinine Clearance 17 mL/min (70-130); Calcium 10.3 mg/dL (7.8-10.44); Carbon Dioxide 31 mmol/L (23-31); Chloride 91 mmol/L (98-107); Glucose 151 mg/dL (83-110); Magnesium 2.5 mg/dL (1.6-2.6); Phosphorus 5.3 mg/dL (2.3-4.7); Potassium 4.4 mmol/L (3.5-5.1); Sodium 133 mmol/L (136-145)
[2021-07-01 05:21] LABS: #Basophils 0.1 thou/uL (0.0-0.2); #Eosinphils 0.4 thou/uL (0.0-0.7); #Lymphocytes 1.3 thou/uL (1.20-3.40); #Neutrophils 4.7 thou/uL (1.40-6.50); %Basophils 0.8 % (0.0-1.0); %Eosinophils 4.7 % (0.0-10.0); %Lymphocytes 17.3 % (21.0-51.0); %Monocytes 13.7 % (0.0-10.0); %Neutrophils 63.5 % (42.0-75.0); Hemoglobin 8.3 g/dL (14.0-18.0); Mean Corpuscular Hemoglobin 25.6 pg (27.0-31.0); Mean Corpuscular Volume 85.3 fL (78.0-98.0); Mean Platelet Volume 10.3 fL (7.4-10.4); Platelet Count 180 thou/uL (130-400); RBC Distribution Width 15.1 % (11.5-14.5); Red Blood Cell (RBC) Count 3.25 mill/uL (4.70-6.10); White Blood Cell (WBC) Count 7.4 thou/uL (4.8-10.8)
[2021-07-01] MEDS ORDERED: EPOETIN ALFA-EPBX (ESRD) 10,000 UNIT/ML VIAL SC SCH (07:30)
[2021-07-01] MEDS: Sevelamer Carbonate 800 MG TAB PO SCH ×3 (08:14→16:49)
[2021-07-01] MEDS: Cinacalcet HCl 30 MG TAB PO SCH (12:42)
[2021-07-01] MEDS: Atorvastatin Calcium 10 MG TAB PO SCH (12:42)
[2021-07-01] MEDS: Ferrous Sulfate 325 MG TAB PO SCH ×2 (12:42→20:03)
[2021-07-01] MEDS: Senokot S 8.6-50 MG TAB PO SCH ×2 (12:42→20:03)
[2021-07-01] MEDS: Polyethylene Glycol 3350 17 GM Packet PO SCH (12:42)
[2021-07-01] MEDS: Cholecalciferol 1,000 UNITS (25 MCG) TAB PO SCH (12:42)
[2021-07-01] MEDS: Ascorbic Acid 500 mg Chewable Tablet PO SCH ×2 (12:43→20:04)
[2021-07-01] MEDS: Amiodarone 200 MG TAB PO SCH (12:44)
[2021-07-01] MEDS: Acetaminophen/Codeine 30-300mg Tablet PO PRN ×2 (12:57→20:08)
[2021-07-01] MEDS: Apixaban 5 MG TAB PO SCH ×2 (13:00→20:04)
[2021-07-01] MEDS: Lantus 1000 UNITS/10 ML VIAL SC SCH ×2 (13:00→20:03)
[2021-07-01] MEDS: Carvedilol 25 MG TAB PO SCH ×2 (13:15→20:09)
[2021-07-01] MEDS: prednisoLONE 1% Ophth Susp 5 ml Bottle EA EYE SCH (13:20)
[2021-07-01] MEDS: Timolol 0.5% Ophth Soln 5 ml Bottle EA EYE SCH ×2 (13:20→20:09)
[2021-07-01] MEDS ORDERED: Apixaban 5 MG TAB PO SCH (14:00)
[2021-07-01] MEDS: Insulin Regular 300 UNITS/3 ML VIAL SC PRN (17:57)
[2021-07-01] MEDS: Ezetimibe 10 MG TAB PO SCH (20:09)
[2021-07-02] MEDS: Insulin Regular 300 UNITS/3 ML VIAL SC PRN ×3 (00:58→13:36)
[2021-07-02] MEDS: Acetaminophen 500 MG TAB PO SCH ×4 (04:41→20:52)
[2021-07-02] MEDS: Acetaminophen/Codeine 30-300mg Tablet PO SCH ×2 (04:41→13:22)
[2021-07-02 05:55] LABS: #Eosinphils 0.3 thou/uL (0.0-0.7); #Lymphocytes 1.1 thou/uL (1.20-3.40); #Monocytes 1.1 thou/uL (0.11-0.59); #Neutrophils 5.2 thou/uL (1.40-6.50); %Basophils 0.4 % (0.0-1.0); %Eosinophils 4.4 % (0.0-10.0); %Lymphocytes 14.3 % (21.0-51.0); %Monocytes 13.9 % (0.0-10.0); Hemoglobin 7.9 g/dL (14.0-18.0); Mean Corpuscular HGB CONC 27.9 g/dL (32.0-36.0); Mean Corpuscular Hemoglobin 23.7 pg (27.0-31.0); Mean Corpuscular Volume 84.8 fL (78.0-98.0); Mean Platelet Volume 10.1 fL (7.4-10.4); Platelet Count 197 thou/uL (130-400); RBC Distribution Width 15.1 % (11.5-14.5); Red Blood Cell (RBC) Count 3.35 mill/uL (4.70-6.10); White Blood Cell (WBC) Count 7.7 thou/uL (4.8-10.8)
[2021-07-02] MEDS: prednisoLONE 1% Ophth Susp 5 ml Bottle EA EYE SCH (08:58)
[2021-07-02] MEDS: Ferrous Sulfate 325 MG TAB PO SCH ×2 (08:58→20:53)
[2021-07-02] MEDS: Timolol 0.5% Ophth Soln 5 ml Bottle EA EYE SCH ×2 (08:58→20:53)
[2021-07-02] MEDS: Sevelamer Carbonate 800 MG TAB PO SCH ×3 (08:58→17:45)
[2021-07-02] MEDS: Cholecalciferol 1,000 UNITS (25 MCG) TAB PO SCH (08:58)
[2021-07-02] MEDS: Amiodarone 200 MG TAB PO SCH (09:00)
[2021-07-02] MEDS: Apixaban 5 MG TAB PO SCH ×2 (09:00→20:53)
[2021-07-02] MEDS: Cinacalcet HCl 30 MG TAB PO SCH (09:00)
[2021-07-02] MEDS: Senokot S 8.6-50 MG TAB PO SCH ×2 (09:00→20:53)
[2021-07-02] MEDS: Atorvastatin Calcium 10 MG TAB PO SCH (09:00)
[2021-07-02] MEDS: Lantus 1000 UNITS/10 ML VIAL SC SCH (10:34)
[2021-07-02] MEDS: Acetaminophen/Codeine 30-300mg Tablet PO PRN ×2 (10:34→17:45)
[2021-07-02] MEDS: Bisacodyl 5 MG TAB PO PRN ×2 (10:34→17:53)
[2021-07-02] MEDS: Ascorbic Acid 500 mg Chewable Tablet PO SCH ×2 (10:45→20:53)
[2021-07-02] MEDS: Polyethylene Glycol 3350 17 GM Packet PO SCH (10:45)
[2021-07-02] MEDS: Carvedilol 25 MG TAB PO SCH ×2 (13:21→20:56)
[2021-07-02] MEDS: Ezetimibe 10 MG TAB PO SCH (20:53)
[2021-07-02] MEDS ORDERED: Bisacodyl 10 MG SUPP PR PRN (21:28)
[2021-07-02] MEDS ORDERED: Bisacodyl 10 MG SUPP PR SCH (21:30)
[2021-07-03] MEDS: Acetaminophen/Codeine 30-300mg Tablet PO SCH ×4 (00:05→12:19)
[2021-07-03] MEDS: Acetaminophen 500 MG TAB PO SCH ×4 (02:18→15:01)
[2021-07-03 04:39] LABS: #Eosinphils 0.4 thou/uL (0.0-0.7); #Lymphocytes 1.5 thou/uL (1.20-3.40); #Neutrophils 5.4 thou/uL (1.40-6.50); %Basophils 0.3 % (0.0-1.0); %Eosinophils 5.3 % (0.0-10.0); %Lymphocytes 18.1 % (21.0-51.0); %Monocytes 11.6 % (0.0-10.0); %Neutrophils 64.8 % (42.0-75.0); Hemoglobin 8.5 g/dL (14.0-18.0); Mean Corpuscular HGB CONC 30.9 g/dL (32.0-36.0); Mean Corpuscular Hemoglobin 26.3 pg (27.0-31.0); Mean Corpuscular Volume 85.4 fL (78.0-98.0); Mean Platelet Volume 9.2 fL (7.4-10.4); Platelet Count 249 thou/uL (130-400); RBC Distribution Width 15.2 % (11.5-14.5); Red Blood Cell (RBC) Count 3.23 mill/uL (4.70-6.10); White Blood Cell (WBC) Count 8.3 thou/uL (4.8-10.8)
[2021-07-03 04:56] LABS: Anion Gap 18 mmol/L (10-20); BUN (Urea Nitrogen) 43 mg/dL (8.4-25.7); Calc. Creatinine Clearance 17 mL/min (70-130); Calcium 10.3 mg/dL (7.8-10.44); Carbon Dioxide 30 mmol/L (23-31); Chloride 92 mmol/L (98-107); Glucose 141 mg/dL (83-110); Magnesium 2.4 mg/dL (1.6-2.6); Phosphorus 4.3 mg/dL (2.3-4.7); Potassium 4.5 mmol/L (3.5-5.1); Sodium 135 mmol/L (136-145)
[2021-07-03 07:49] VITALS: BP 108/63
[2021-07-03] MEDS ORDERED: Magnesium Citrate 300 ML BOT PO SCH (08:00)
[2021-07-03] MEDS ORDERED: Bisacodyl 10 MG SUPP PR SCH (09:00)
[2021-07-03] MEDS: Cholecalciferol 1,000 UNITS (25 MCG) TAB PO SCH (09:19)
[2021-07-03] MEDS: Ferrous Sulfate 325 MG TAB PO SCH (09:19)
[2021-07-03] MEDS: Amiodarone 200 MG TAB PO SCH (09:19)
[2021-07-03] MEDS: Carvedilol 25 MG TAB PO SCH (09:20)
[2021-07-03] MEDS: Ascorbic Acid 500 mg Chewable Tablet PO SCH (09:20)
[2021-07-03] MEDS: Senokot S 8.6-50 MG TAB PO SCH (09:20)
[2021-07-03] MEDS: Atorvastatin Calcium 10 MG TAB PO SCH (09:20)
[2021-07-03] MEDS: Cinacalcet HCl 30 MG TAB PO SCH (09:20)
[2021-07-03] MEDS: Apixaban 5 MG TAB PO SCH (09:20)
[2021-07-03] MEDS: prednisoLONE 1% Ophth Susp 5 ml Bottle EA EYE SCH (09:21)
[2021-07-03] MEDS: Timolol 0.5% Ophth Soln 5 ml Bottle EA EYE SCH (09:21)
[2021-07-03] MEDS: Sevelamer Carbonate 800 MG TAB PO SCH ×3 (09:22→17:41)
[2021-07-03] MEDS: Polyethylene Glycol 3350 17 GM Packet PO SCH (09:23)
[2021-07-03] MEDS: Lantus 1000 UNITS/10 ML VIAL SC SCH (09:28)
[2021-07-03] MEDS ORDERED: Morphine 4 MG/ML VIAL SLOW IVP PRN (10:19)
[2021-07-03 11:56] VITALS: TEMP 98.1
[2021-07-03] MEDS: Insulin Regular 300 UNITS/3 ML VIAL SC PRN (12:20)
== END 2021-07-03 19:08 | DRG 492 ==
LOC: ERS 08:22 → SURG A 11:41
PROVIDERS: ADMIT Orthopaedic Surgery; ATTEND Orthopaedic Surgery
PROC: 5A1D70Z Performance of Urinary Filtration, Intermittent, Less than 6 Hours Per Day (ICD-10-PCS; 2021-06-27)
PROC: 0QSH06Z Reposition Left Tibia with Intramedullary Internal Fixation Device, Open Approach (ICD-10-PCS; principal; 2021-06-28)
DX: S82.252A Displaced comminuted fracture of shaft of left tibia, initial encounter for closed fracture (principal); Z20.822 Contact with and (suspected) exposure to COVID-19; N18.6 End stage renal disease; I12.0 Hypertensive chronic kidney disease with stage 5 chronic kidney disease or end stage renal disease; S82.452A Displaced comminuted fracture of shaft of left fibula, initial encounter for closed fracture; E11.22 Type 2 diabetes mellitus with diabetic chronic kidney disease; E78.5 Hyperlipidemia, unspecified; I25.10 Atherosclerotic heart disease of native coronary artery without angina pectoris; E87.5 Hyperkalemia; E83.39 Other disorders of phosphorus metabolism; E11.65 Type 2 diabetes mellitus with hyperglycemia; W18.30XA Fall on same level, unspecified, initial encounter; Z99.2 Dependence on renal dialysis; Z95.5 Presence of coronary angioplasty implant and graft; Z98.41 Cataract extraction status, right eye; Z89.411 Acquired absence of right great toe; Z79.899 Other long term (current) drug therapy; Z79.82 Long term (current) use of aspirin; Z79.4 Long term (current) use of insulin; Z79.01 Long term (current) use of anticoagulants
CPT/HCPCS: 27781; 36415; 36416; 71045; 76000; 76377; 80048; 80053; 83735; 84100; 85025; 86850; 86900; 86901; 87340; 93005; 96374; C1713; G0390; J1100; J1170; J1815; J1956; J2270; J2370; J2405; J2704; J3010; J3490; Q5105; U0003; U0005

== ENCOUNTER 2022-01-12 12:57 | Inpatient (IN) | payer OTHER, MEDICAID ==
[2022-01-12] MEDS ORDERED: Cefepime 2 GM VIAL ONE (14:06)
[2022-01-12] MEDS ORDERED: Cefepime 1 GM VIAL ONE (14:07)
[2022-01-12 14:13] LABS: #Basophils 0.1 thou/uL (0.0-0.2); #Eosinphils 0.1 thou/uL (0.0-0.7); #Lymphocytes 2.4 thou/uL (1.20-3.40); #Neutrophils 9.8 thou/uL (1.40-6.50); %Basophils 0.6 % (0.0-1.0); %Eosinophils 0.7 % (0.0-10.0); %Monocytes 7.5 % (0.0-10.0); %Neutrophils 73.2 % (42.0-75.0); Hemoglobin 12.1 g/dL (14.0-18.0); Mean Corpuscular HGB CONC 29.1 g/dL (32.0-36.0); Mean Corpuscular Hemoglobin 25.9 pg (27.0-31.0); Mean Corpuscular Volume 88.9 fL (78.0-98.0); Mean Platelet Volume 10.7 fL (7.4-10.4); Platelet Count 310 thou/uL (130-400); RBC Distribution Width 15.9 % (11.5-14.5); Red Blood Cell (RBC) Count 4.67 mill/uL (4.70-6.10); White Blood Cell (WBC) Count 13.4 thou/uL (4.8-10.8)
[2022-01-12 14:26] LABS: ALT (SGPT) 16 U/L (8-55); AST (SGOT) 31 U/L (5-34); Albumin 1.6 g/dL (3.4-4.8); Alkaline Phosphatase 224 U/L (40-110); Anion Gap 18 mmol/L (10-20); BUN (Urea Nitrogen) 5 mg/dL (8.4-25.7); Bilirubin, Total 0.6 mg/dL (0.2-1.2); Calc. Creatinine Clearance 0 mL/min (70-130); Calcium 9.2 mg/dL (7.8-10.44); Carbon Dioxide 26 mmol/L (23-31); Chloride 104 mmol/L (98-107); Globulin 4.2 g/dL (2.4-3.5); Glucose 101 mg/dL (83-110); Potassium 3.9 mmol/L (3.5-5.1); Protein, Total 5.8 g/dL (5.8-8.1); Sodium 144 mmol/L (136-145)
[2022-01-12 14:30] LABS: Anisocytosis SLIGHT = 6-15 cells (100X) (0-5/hpf); Hypochromia SLIGHT = 6-15 cells (100X) (0-5/hpf); MDiff Complete? YES; Platelet Morphology Comment Appears Adequate; Polychromasia SLIGHT = 2-3 cells (100X) (0-2/hpf)
[2022-01-12] MEDS ORDERED: Vancomycin 1 GM/200 ML BAG ONE (14:42)
[2022-01-12 14:47] LABS: CKMB 0.8 ng/mL (0-6.6)
[2022-01-12] MEDS ORDERED: diphenhydrAMINE 50 MG/ML VIAL ONE (16:53)
[2022-01-12] MEDS ORDERED: Famotidine/PF 20 mg/2ml Vial ONE (16:53)
[2022-01-12] MEDS ORDERED: methylPREDNISolone Sod Succ 40 MG VIAL ONE (16:53)
[2022-01-12 17:29] LABS: Lactic Acid 5.5 mmol/L (0.5-2.2)
[2022-01-12] MEDS ORDERED: Ondansetron PF 4 MG/2 ML Vial IVP PRN (20:14)
[2022-01-12] MEDS ORDERED: HumaLOG 300 UNITS/3 ML VIAL SC PRN ×2 (20:14)
[2022-01-12] MEDS ORDERED: Communication Order-Pharmacy FS SCH (20:14)
[2022-01-12] MEDS ORDERED: hydrALAZINE 20 MG/ML VIAL SLOW IVP PRN (20:14)
[2022-01-12] MEDS ORDERED: Ondansetron ODT 4 MG TAB PO PRN (20:14)
[2022-01-12] MEDS ORDERED: Dextrose 50% Abboject 50 ML SYRINGE SLOW IVP PRN (20:14)
[2022-01-12] MEDS ORDERED: Acetaminophen 500 MG TAB PO PRN (20:14)
[2022-01-12] MEDS ORDERED: Dextrose 5% in Water 1,000 ML IV PRN (20:14)
[2022-01-12] MEDS ORDERED: Vancomycin HCl 1 GM in Sodium Chloride 0.9% 250 ML 300 ML IVPB SCH (20:15)
[2022-01-12 20:41] LABS: Troponin I 0.078 ng/mL (< 0.028)
[2022-01-12] MEDS ORDERED: Vancomycin HCl 750 MG in Sodium Chloride 0.9% 250 ML 250 ML IVPB SCH (22:15)
[2022-01-12] MEDS ORDERED: Vancomycin Diaylsis Sliding Scale (Wt 71-99) FS SCH (22:15)
[2022-01-12] MEDS: DorzolamidE/Timolol 2%/0.5% Ophth Soln 10 ml Bottle L EYE SCH (22:57)
[2022-01-12] MEDS: Sodium Chloride 0.9% 1,000 ML IV SCH (22:57)
[2022-01-12] MEDS: Apixaban 2.5 MG TAB PO SCH (22:58)
[2022-01-12] MEDS: Ferrous Sulfate 325 MG TAB PO SCH (22:58)
[2022-01-12] MEDS: Atorvastatin Calcium 10 MG TAB PO SCH (22:58)
[2022-01-12] MEDS: Timolol 0.5% Ophth Soln 5 ml Bottle EA EYE SCH (22:58)
[2022-01-12 23:59] LABS: Lactic Acid 7.9 mmol/L (0.5-2.2)
[2022-01-13 00:02] LABS: Troponin I 0.083 ng/mL (< 0.028)
[2022-01-13] MEDS: Apixaban 2.5 MG TAB PO SCH ×3 (00:14→20:32)
[2022-01-13] MEDS: Ferrous Sulfate 325 MG TAB PO SCH ×3 (00:15→20:32)
[2022-01-13] MEDS: Atorvastatin Calcium 10 MG TAB PO SCH ×2 (00:15→20:32)
[2022-01-13] MEDS ORDERED: Cefepime 1 GM in Sodium Chloride 0.9% 100 ML IVPB SCH (02:00)
[2022-01-13 04:53] LABS: ALT (SGPT) 17 U/L (8-55); AST (SGOT) 23 U/L (5-34); Albumin 1.6 g/dL (3.4-4.8); Alkaline Phosphatase 209 U/L (40-110); Anion Gap 14 mmol/L (10-20); BUN (Urea Nitrogen) 9 mg/dL (8.4-25.7); Bilirubin, Total 0.6 mg/dL (0.2-1.2); Calc. Creatinine Clearance 36 mL/min (70-130); Calcium 8.8 mg/dL (7.8-10.44); Carbon Dioxide 24 mmol/L (23-31); Chloride 107 mmol/L (98-107); Globulin 3.9 g/dL (2.4-3.5); Glucose 151 mg/dL (83-110); Potassium 4.1 mmol/L (3.5-5.1); Protein, Total 5.5 g/dL (5.8-8.1); Sodium 141 mmol/L (136-145)
[2022-01-13 05:17] LABS: #Lymphocytes 0.9 thou/uL (1.20-3.40); #Monocytes 0.2 thou/uL (0.11-0.59); #Neutrophils 9.8 thou/uL (1.40-6.50); %Basophils 0.1 % (0.0-1.0); %Eosinophils 0.1 % (0.0-10.0); %Lymphocytes 8.6 % (21.0-51.0); %Monocytes 1.7 % (0.0-10.0); %Neutrophils 89.6 % (42.0-75.0); Anisocytosis SLIGHT = 6-15 cells (100X) (0-5/hpf); MDiff Complete? YES; Mean Corpuscular HGB CONC 28.8 g/dL (32.0-36.0); Mean Corpuscular Hemoglobin 25.4 pg (27.0-31.0); Mean Corpuscular Volume 88.2 fL (78.0-98.0); Platelet Count 237 thou/uL (130-400); RBC Distribution Width 15.7 % (11.5-14.5); Red Blood Cell (RBC) Count 4.74 mill/uL (4.70-6.10); White Blood Cell (WBC) Count 10.9 thou/uL (4.8-10.8)
[2022-01-13] MEDS ORDERED: Lactated Ringer's 500 ML IV SCH (08:30)
[2022-01-13] MEDS ORDERED: Famotidine 20 MG TAB PO SCH (09:00)
[2022-01-13] MEDS: Amiodarone 200 MG TAB PO SCH (09:36)
[2022-01-13] MEDS: Cinacalcet HCl 30 MG TAB PO SCH (09:37)
[2022-01-13] MEDS: Polyethylene Glycol 3350 17 GM Packet PO SCH (09:37)
[2022-01-13] MEDS: DorzolamidE/Timolol 2%/0.5% Ophth Soln 10 ml Bottle L EYE SCH ×2 (09:37→20:33)
[2022-01-13] MEDS: Timolol 0.5% Ophth Soln 5 ml Bottle EA EYE SCH ×2 (09:37→20:33)
[2022-01-13] MEDS: Cholecalciferol 1,000 UNITS (25 MCG) TAB PO SCH (09:37)
[2022-01-13 14:50] LABS: Lactic Acid 1.3 mmol/L (0.5-2.2)
[2022-01-13] MEDS: Sodium Chloride 0.9% 1,000 ML IV SCH (17:05)
[2022-01-13] MEDS: Cefepime 0.5 GM, Admixture Fee 1 EACH in Sodium Chloride 0.9% 100 ML IVPB SCH (17:05)
[2022-01-14 00:13] LABS: Vancomycin, Random 18.5 ug/mL (See Comment)
[2022-01-14] MEDS: Timolol 0.5% Ophth Soln 5 ml Bottle EA EYE SCH ×2 (09:28→20:36)
[2022-01-14] MEDS: DorzolamidE/Timolol 2%/0.5% Ophth Soln 10 ml Bottle L EYE SCH ×2 (09:28→20:36)
[2022-01-14] MEDS: Cholecalciferol 1,000 UNITS (25 MCG) TAB PO SCH (09:28)
[2022-01-14] MEDS: Ferrous Sulfate 325 MG TAB PO SCH ×2 (09:28→20:36)
[2022-01-14] MEDS: Apixaban 2.5 MG TAB PO SCH ×2 (09:28→20:36)
[2022-01-14] MEDS: Cinacalcet HCl 30 MG TAB PO SCH (09:28)
[2022-01-14] MEDS: Amiodarone 200 MG TAB PO SCH (09:28)
[2022-01-14] MEDS: Polyethylene Glycol 3350 17 GM Packet PO SCH (09:29)
[2022-01-14] MEDS: Sodium Chloride 0.9% 1,000 ML IV SCH (09:29)
[2022-01-14] MEDS: Cefepime 0.5 GM, Admixture Fee 1 EACH in Sodium Chloride 0.9% 100 ML IVPB SCH (14:33)
[2022-01-14 16:35] LABS: Magnesium 1.9 mg/dL (1.6-2.6); Potassium 3.6 mmol/L (3.5-5.1)
[2022-01-14] MEDS: Atorvastatin Calcium 40 MG TAB PO SCH (20:36)
[2022-01-15 04:36] LABS: Hemoglobin 10.5 g/dL (14.0-18.0); Mean Corpuscular HGB CONC 28.4 g/dL (32.0-36.0); Mean Corpuscular Hemoglobin 25.7 pg (27.0-31.0); Mean Corpuscular Volume 90.5 fL (78.0-98.0); Mean Platelet Volume 6.7 fL (7.4-10.4); Platelet Count 221 thou/uL (130-400); RBC Distribution Width 15.9 % (11.5-14.5); Red Blood Cell (RBC) Count 4.07 mill/uL (4.70-6.10); White Blood Cell (WBC) Count 8.3 thou/uL (4.8-10.8)
[2022-01-15] MEDS: Sodium Chloride 0.9% 1,000 ML IV SCH (04:43)
[2022-01-15 05:05] LABS: Anion Gap 13 mmol/L (10-20); BUN (Urea Nitrogen) 26 mg/dL (8.4-25.7); Calc. Creatinine Clearance 25 mL/min (70-130); Calcium 8.8 mg/dL (7.8-10.44); Carbon Dioxide 20 mmol/L (23-31); Chloride 111 mmol/L (98-107); Glucose 143 mg/dL (83-110); Magnesium 2.1 mg/dL (1.6-2.6); Potassium 3.9 mmol/L (3.5-5.1); Sodium 140 mmol/L (136-145)
[2022-01-15 06:57] LABS: Vancomycin, Random 17.6 ug/mL (See Comment)
[2022-01-15] MEDS: Apixaban 2.5 MG TAB PO SCH ×2 (09:00→22:30)
[2022-01-15] MEDS: Timolol 0.5% Ophth Soln 5 ml Bottle EA EYE SCH ×2 (09:00→22:30)
[2022-01-15] MEDS: Aspirin 81 mg Enteric Coated Tablet PO SCH (09:00)
[2022-01-15] MEDS: Amiodarone 200 MG TAB PO SCH (09:00)
[2022-01-15] MEDS: DorzolamidE/Timolol 2%/0.5% Ophth Soln 10 ml Bottle L EYE SCH ×2 (09:00→22:31)
[2022-01-15] MEDS: Polyethylene Glycol 3350 17 GM Packet PO SCH (09:01)
[2022-01-15] MEDS: Cinacalcet HCl 30 MG TAB PO SCH (09:01)
[2022-01-15] MEDS: Cholecalciferol 1,000 UNITS (25 MCG) TAB PO SCH (09:01)
[2022-01-15] MEDS: Ferrous Sulfate 325 MG TAB PO SCH ×2 (09:01→22:30)
[2022-01-15] MEDS: Cefepime 0.5 GM, Admixture Fee 1 EACH in Sodium Chloride 0.9% 100 ML IVPB SCH (14:54)
[2022-01-15] MEDS ORDERED: Vancomycin HCl 500 MG in Sodium Chloride 0.9% 100 ML IVPB SCH (17:00)
[2022-01-15] MEDS: Atorvastatin Calcium 40 MG TAB PO SCH (22:30)
[2022-01-16] MEDS: Sodium Chloride 0.9% 1,000 ML IV SCH (04:00)
[2022-01-16] MEDS: Apixaban 2.5 MG TAB PO SCH ×2 (09:53→20:53)
[2022-01-16] MEDS: Polyethylene Glycol 3350 17 GM Packet PO SCH (09:53)
[2022-01-16] MEDS: Cholecalciferol 1,000 UNITS (25 MCG) TAB PO SCH (09:53)
[2022-01-16] MEDS: Amiodarone 200 MG TAB PO SCH (09:53)
[2022-01-16] MEDS: Cinacalcet HCl 30 MG TAB PO SCH (09:53)
[2022-01-16] MEDS: Timolol 0.5% Ophth Soln 5 ml Bottle EA EYE SCH ×2 (09:53→20:54)
[2022-01-16] MEDS: DorzolamidE/Timolol 2%/0.5% Ophth Soln 10 ml Bottle L EYE SCH ×2 (09:53→20:53)
[2022-01-16] MEDS: Aspirin 81 mg Enteric Coated Tablet PO SCH (09:53)
[2022-01-16] MEDS: Ferrous Sulfate 325 MG TAB PO SCH ×2 (09:53→20:53)
[2022-01-16] MEDS: Atorvastatin Calcium 40 MG TAB PO SCH (20:53)
[2022-01-17] MEDS: Timolol 0.5% Ophth Soln 5 ml Bottle EA EYE SCH ×2 (08:33→21:09)
[2022-01-17] MEDS: DorzolamidE/Timolol 2%/0.5% Ophth Soln 10 ml Bottle L EYE SCH ×2 (08:33→21:09)
[2022-01-17] MEDS: Amiodarone 200 MG TAB PO SCH (08:42)
[2022-01-17] MEDS: Aspirin 81 mg Enteric Coated Tablet PO SCH (08:42)
[2022-01-17] MEDS: Cholecalciferol 1,000 UNITS (25 MCG) TAB PO SCH (08:42)
[2022-01-17] MEDS: Cinacalcet HCl 30 MG TAB PO SCH (08:42)
[2022-01-17] MEDS: Apixaban 2.5 MG TAB PO SCH ×2 (08:42→21:09)
[2022-01-17] MEDS: Ferrous Sulfate 325 MG TAB PO SCH ×2 (08:42→21:09)
[2022-01-17] MEDS: Polyethylene Glycol 3350 17 GM Packet PO SCH (09:57)
[2022-01-17 10:59] LABS: Mean Corpuscular HGB CONC 29.8 g/dL (32.0-36.0); Mean Corpuscular Hemoglobin 25.5 pg (27.0-31.0); Mean Corpuscular Volume 85.5 fL (78.0-98.0); Mean Platelet Volume 6.8 fL (7.4-10.4); Platelet Count 180 thou/uL (130-400); RBC Distribution Width 15.6 % (11.5-14.5); Red Blood Cell (RBC) Count 4.31 mill/uL (4.70-6.10); White Blood Cell (WBC) Count 7.1 thou/uL (4.8-10.8)
[2022-01-17 11:09] LABS: Anion Gap 12 mmol/L (10-20); BUN (Urea Nitrogen) 52 mg/dL (8.4-25.7); Calc. Creatinine Clearance 18 mL/min (70-130); Calcium 8.6 mg/dL (7.8-10.44); Carbon Dioxide 23 mmol/L (23-31); Chloride 110 mmol/L (98-107); Glucose 116 mg/dL (83-110); Potassium 3.6 mmol/L (3.5-5.1); Sodium 141 mmol/L (136-145)
[2022-01-17] MEDS: Atorvastatin Calcium 40 MG TAB PO SCH (21:09)
[2022-01-18 05:24] LABS: #Eosinphils 0.4 thou/uL (0.0-0.7); #Lymphocytes 1.1 thou/uL (1.20-3.40); #Monocytes 0.5 thou/uL (0.11-0.59); #Neutrophils 5.4 thou/uL (1.40-6.50); %Basophils 0.5 % (0.0-1.0); %Eosinophils 5.1 % (0.0-10.0); %Lymphocytes 15.2 % (21.0-51.0); %Monocytes 6.6 % (0.0-10.0); %Neutrophils 72.5 % (42.0-75.0); Hypochromia SLIGHT = 6-15 cells (100X) (0-5/hpf); MDiff Complete? YES; Mean Corpuscular HGB CONC 29.9 g/dL (32.0-36.0); Mean Corpuscular Hemoglobin 25.5 pg (27.0-31.0); Mean Corpuscular Volume 85.4 fL (78.0-98.0); Mean Platelet Volume 7.2 fL (7.4-10.4); Platelet Count 157 thou/uL (130-400); RBC Distribution Width 15.7 % (11.5-14.5); Red Blood Cell (RBC) Count 3.93 mill/uL (4.70-6.10); White Blood Cell (WBC) Count 7.4 thou/uL (4.8-10.8)
[2022-01-18 06:40] LABS: Chloride 105 mmol/L (98-107); Sodium 137 mmol/L (136-145)
[2022-01-18 06:41] LABS: Calcium 7.6 mg/dL (7.8-10.44); Glucose 147 mg/dL (83-110)
[2022-01-18 06:42] LABS: Carbon Dioxide 27 mmol/L (23-31)
[2022-01-18 06:43] LABS: Anion Gap 9 mmol/L (10-20)
[2022-01-18 06:45] LABS: BUN (Urea Nitrogen) 27 mg/dL (8.4-25.7); Calc. Creatinine Clearance 29 mL/min (70-130)
[2022-01-18] MEDS ORDERED: Magnesium 2 GM/50 ML(in water) 2 GM in Premix Bag 1 BAG IVPB SCH (07:00)
[2022-01-18] MEDS ORDERED: Electrolyte Replacement Protocol FS PRN (07:00)
[2022-01-18] MEDS: PHOS-NAK 1 PKT PACK PO SCH ×3 (08:27→16:40)
[2022-01-18] MEDS: Aspirin 81 mg Enteric Coated Tablet PO SCH (08:27)
[2022-01-18] MEDS: Polyethylene Glycol 3350 17 GM Packet PO SCH (08:28)
[2022-01-18] MEDS: Apixaban 2.5 MG TAB PO SCH (08:28)
[2022-01-18] MEDS: Amiodarone 200 MG TAB PO SCH (08:28)
[2022-01-18] MEDS: Cinacalcet HCl 30 MG TAB PO SCH (08:28)
[2022-01-18] MEDS: Cholecalciferol 1,000 UNITS (25 MCG) TAB PO SCH (08:28)
[2022-01-18] MEDS: Ferrous Sulfate 325 MG TAB PO SCH (08:28)
[2022-01-18] MEDS: Timolol 0.5% Ophth Soln 5 ml Bottle EA EYE SCH (08:32)
[2022-01-18] MEDS: DorzolamidE/Timolol 2%/0.5% Ophth Soln 10 ml Bottle L EYE SCH (08:33)
[2022-01-18 15:15] VITALS: BMI 27.5
[2022-01-18 15:46] VITALS: BP 131/55; TEMP 98.2
== END 2022-01-18 18:01 | DRG 853 ==
LOC: ERS 12:57 → 2NO 19:48
PROVIDERS: ADMIT Internal Medicine; ATTEND Internal Medicine
PROC: 3E03329 Introduction of Other Anti-infective into Peripheral Vein, Percutaneous Approach (ICD-10-PCS; 2022-01-12)
PROC: 0JBR0ZZ Excision of Left Foot Subcutaneous Tissue and Fascia, Open Approach (ICD-10-PCS; principal; 2022-01-13)
PROC: 0LBN0ZZ Excision of Right Lower Leg Tendon, Open Approach (ICD-10-PCS; 2022-01-13)
PROC: 5A1D70Z Performance of Urinary Filtration, Intermittent, Less than 6 Hours Per Day (ICD-10-PCS; 2022-01-13)
DX: A41.81 Sepsis due to Enterococcus (principal); L89.624 Pressure ulcer of left heel, stage 4; L89.623 Pressure ulcer of left heel, stage 3; L89.613 Pressure ulcer of right heel, stage 3; R65.21 Severe sepsis with septic shock; N18.6 End stage renal disease; J96.01 Acute respiratory failure with hypoxia; G92.8 Other toxic encephalopathy; E11.52 Type 2 diabetes mellitus with diabetic peripheral angiopathy with gangrene; I47.2 Ventricular tachycardia; Z20.822 Contact with and (suspected) exposure to COVID-19; E11.22 Type 2 diabetes mellitus with diabetic chronic kidney disease; I25.10 Atherosclerotic heart disease of native coronary artery without angina pectoris; I48.91 Unspecified atrial fibrillation; D63.1 Anemia in chronic kidney disease; E11.42 Type 2 diabetes mellitus with diabetic polyneuropathy; L89.152 Pressure ulcer of sacral region, stage 2; I48.0 Paroxysmal atrial fibrillation; R29.810 Facial weakness; R13.12 Dysphagia, oropharyngeal phase; R94.31 Abnormal electrocardiogram [ECG] [EKG]; Z79.01 Long term (current) use of anticoagulants; Z99.2 Dependence on renal dialysis; Z95.5 Presence of coronary angioplasty implant and graft; Z98.49 Cataract extraction status, unspecified eye; Z89.429 Acquired absence of other toe(s), unspecified side; Z98.890 Other specified postprocedural states; Z79.899 Other long term (current) drug therapy; Z79.4 Long term (current) use of insulin; Z88.0 Allergy status to penicillin; Z91.041 Radiographic dye allergy status; Z91.011 Allergy to milk products; Z83.3 Family history of diabetes mellitus
CPT/HCPCS: 36415; 36416; 70450; 71045; 74177; 80048; 80053; 80202; 82553; 83605; 83735; 84100; 84132; 84484; 85025; 85027; 87040; 93005; 93010; 96365; 96366; 96367; 96375; J0692; J1200; J2920; J3370; J3490; J7050; J7120; Q9966; S0028; U0003; U0005

== ENCOUNTER 2022-02-08 12:33 | Inpatient (IN) | payer OTHER ==
[2022-02-08 13:48] LABS: #Eosinphils 0.1 thou/uL (0.0-0.7); #Lymphocytes 1.8 thou/uL (1.20-3.40); #Neutrophils 13.8 thou/uL (1.40-6.50); %Basophils 0.2 % (0.0-1.0); %Eosinophils 0.6 % (0.0-10.0); %Lymphocytes 10.7 % (21.0-51.0); %Monocytes 5.8 % (0.0-10.0); %Neutrophils 82.8 % (42.0-75.0); Hemoglobin 10.1 g/dL (14.0-18.0); Mean Corpuscular Hemoglobin 25.8 pg (27.0-31.0); Mean Corpuscular Volume 88.9 fL (78.0-98.0); Mean Platelet Volume 10.1 fL (7.4-10.4); Platelet Count 370 thou/uL (130-400); RBC Distribution Width 19.6 % (11.5-14.5); White Blood Cell (WBC) Count 16.7 thou/uL (4.8-10.8)
[2022-02-08 14:01] LABS: ALT (SGPT) 13 U/L (8-55); AST (SGOT) 29 U/L (5-34); Albumin 1.6 g/dL (3.4-4.8); Alkaline Phosphatase 155 U/L (40-110); Anion Gap 15 mmol/L (10-20); BUN (Urea Nitrogen) 18 mg/dL (8.4-25.7); Bilirubin, Total 0.6 mg/dL (0.2-1.2); Calc. Creatinine Clearance 0 mL/min (70-130); Calcium 9.5 mg/dL (7.8-10.44); Carbon Dioxide 23 mmol/L (23-31); Chloride 105 mmol/L (98-107); Estimated GFR 22; Globulin 4.3 g/dL (2.4-3.5); Glucose 176 mg/dL (83-110); Potassium 4.3 mmol/L (3.5-5.1); Protein, Total 5.9 g/dL (5.8-8.1); Sodium 139 mmol/L (136-145)
[2022-02-08] MEDS ORDERED: Amiodarone 150 MG/3 ML VIAL ONE (14:53)
[2022-02-08] MEDS ORDERED: Bacitracin 1 PK ONE (15:47)
[2022-02-08] MEDS ORDERED: Vancomycin 1 GM/200 ML BAG ONE (16:05)
[2022-02-08] MEDS ORDERED: Senokot S 8.6-50 MG TAB PO PRN (17:53)
[2022-02-08] MEDS ORDERED: Bisacodyl 5 MG TAB PO PRN (17:53)
[2022-02-08] MEDS ORDERED: Amiodarone 450 MG, Admixture Fee 1 EACH in Dextrose 5% in Water 250 ML IVPB SCH (18:00)
[2022-02-08] MEDS ORDERED: Amiodarone 450 MG in Dextrose 5% in Water 250 ML IVPB SCH (18:00)
[2022-02-08] MEDS ORDERED: Cefepime 1 GM VIAL ONE (18:31)
[2022-02-08] MEDS: Cefepime 1 GM in Sodium Chloride 0.9% 100 ML IVPB SCH (18:35)
[2022-02-08] MEDS ORDERED: Vancomycin 1 GM in Premix Bag 1 BAG IVPB SCH (21:00)
[2022-02-08] MEDS: Ferrous Sulfate 325 MG TAB PO SCH (22:46)
[2022-02-08] MEDS: Metoprolol Tartrate 25 MG TAB PO SCH (22:46)
[2022-02-08] MEDS: Atorvastatin Calcium 10 MG TAB PO SCH (22:47)
[2022-02-08] MEDS ORDERED: Vancomycin Diaylsis Sliding Scale (Wt 71-99) FS SCH (23:45)
[2022-02-08] MEDS ORDERED: Vancomycin HCl 750 MG in Sodium Chloride 0.9% 250 ML 250 ML IVPB SCH (23:59)
[2022-02-09 08:00] LABS: Hemoglobin 9.9 g/dL (14.0-18.0); Mean Corpuscular HGB CONC 29.3 g/dL (32.0-36.0); Mean Corpuscular Hemoglobin 25.6 pg (27.0-31.0); Mean Corpuscular Volume 87.5 fL (78.0-98.0); Mean Platelet Volume 10.3 fL (7.4-10.4); Platelet Count 353 thou/uL (130-400); RBC Distribution Width 20.4 % (11.5-14.5); Red Blood Cell (RBC) Count 3.85 mill/uL (4.70-6.10); White Blood Cell (WBC) Count 17.1 thou/uL (4.8-10.8)
[2022-02-09 08:03] LABS: Vancomycin, Random 20.4 ug/mL (See Comment)
[2022-02-09 08:07] LABS: Anion Gap 18 mmol/L (10-20); BUN (Urea Nitrogen) 21 mg/dL (8.4-25.7); Calc. Creatinine Clearance 24 mL/min (70-130); Calcium 9.6 mg/dL (7.8-10.44); Carbon Dioxide 20 mmol/L (23-31); Chloride 106 mmol/L (98-107); Estimated GFR 19; Glucose 169 mg/dL (83-110); Potassium 3.6 mmol/L (3.5-5.1); Sodium 140 mmol/L (136-145)
[2022-02-09 08:26] LABS: #Eosinphils 0.1 thou/uL (0.0-0.7); #Lymphocytes 1.4 thou/uL (1.20-3.40); #Neutrophils 14.6 thou/uL (1.40-6.50); %Eosinophils 0.8 % (0.0-10.0); %Monocytes 5.6 % (0.0-10.0); %Neutrophils 85.6 % (42.0-75.0); Anisocytosis SLIGHT = 6-15 cells (100X) (0-5/hpf); Band 3 % (5-11); Eosinophils 1 % (0-10); Lymphocytes 10 % (21-51); MDiff Complete? YES; Monocytes 2 % (0-10); Neutrophil 84 % (42-75); Platelet Morphology Comment Appears Adequate; Polychromasia SLIGHT = 2-3 cells (100X) (0-2/hpf); Schistocytes SLIGHT = 2-5 cells (100X) (0-1/hpf)
[2022-02-09] MEDS: Ferrous Sulfate 325 MG TAB PO SCH ×2 (08:40→21:59)
[2022-02-09] MEDS: Apixaban 2.5 MG TAB PO SCH (08:41)
[2022-02-09] MEDS: Polyethylene Glycol 3350 17 GM Packet PO SCH (08:41)
[2022-02-09] MEDS: Ezetimibe 10 MG TAB PO SCH (08:41)
[2022-02-09] MEDS: Metoprolol Tartrate 25 MG TAB PO SCH ×2 (08:41→21:59)
[2022-02-09] MEDS: Famotidine 20 MG TAB PO SCH (08:41)
[2022-02-09] MEDS ORDERED: Heparin 10,000 UNITS/ 10 ML VIAL ONE (13:06)
[2022-02-09] MEDS ORDERED: EPOETIN ALFA-EPBX (ESRD) 4,000 UNIT/ML VIAL SC SCH (14:00)
[2022-02-09] MEDS: Epoetin (ESRD) 10,000 UNITS/ML VIAL SC SCH (15:12)
[2022-02-09] MEDS: Cefepime 1 GM in Sodium Chloride 0.9% 100 ML IVPB SCH (18:36)
[2022-02-09] MEDS: Atorvastatin Calcium 10 MG TAB PO SCH (21:59)
[2022-02-10] MEDS ORDERED: Midodrine HCl 5 MG TAB PO SCH (01:00)
[2022-02-10 07:02] LABS: #Basophils 0.1 thou/uL (0.0-0.2); #Eosinphils 0.2 thou/uL (0.0-0.7); #Lymphocytes 1.5 thou/uL (1.20-3.40); #Neutrophils 11.4 thou/uL (1.40-6.50); %Basophils 0.4 % (0.0-1.0); %Eosinophils 1.7 % (0.0-10.0); %Lymphocytes 10.4 % (21.0-51.0); %Monocytes 6.8 % (0.0-10.0); %Neutrophils 80.7 % (42.0-75.0); Hemoglobin 8.9 g/dL (14.0-18.0); Mean Corpuscular HGB CONC 29.5 g/dL (32.0-36.0); Mean Corpuscular Hemoglobin 25.5 pg (27.0-31.0); Mean Corpuscular Volume 86.5 fL (78.0-98.0); Platelet Count 349 thou/uL (130-400); RBC Distribution Width 18.8 % (11.5-14.5); Red Blood Cell (RBC) Count 3.47 mill/uL (4.70-6.10); White Blood Cell (WBC) Count 14.1 thou/uL (4.8-10.8)
[2022-02-10 07:05] LABS: Anion Gap 14 mmol/L (10-20); BUN (Urea Nitrogen) 10 mg/dL (8.4-25.7); Calc. Creatinine Clearance 35 mL/min (70-130); Calcium 8.9 mg/dL (7.8-10.44); Carbon Dioxide 25 mmol/L (23-31); Chloride 103 mmol/L (98-107); Estimated GFR 30; Glucose 121 mg/dL (83-110); Magnesium 1.7 mg/dL (1.6-2.6); Potassium 3.1 mmol/L (3.5-5.1); Sodium 139 mmol/L (136-145)
[2022-02-10] MEDS ORDERED: Potassium Chloride 20 MEQ TAB PO SCH (08:00)
[2022-02-10] MEDS: Metoprolol Tartrate 25 MG TAB PO SCH ×2 (09:17→21:11)
[2022-02-10] MEDS: Ferrous Sulfate 325 MG TAB PO SCH ×2 (09:17→21:11)
[2022-02-10] MEDS: Ezetimibe 10 MG TAB PO SCH (09:18)
[2022-02-10] MEDS: Famotidine 20 MG TAB PO SCH (09:18)
[2022-02-10] MEDS: Apixaban 2.5 MG TAB PO SCH (09:18)
[2022-02-10] MEDS: Polyethylene Glycol 3350 17 GM Packet PO SCH (09:18)
[2022-02-10] MEDS ORDERED: Magnesium 2 GM/50 ML(in water) 2 GM in Premix Bag 1 BAG IVPB SCH (09:30)
[2022-02-10] MEDS ORDERED: Amiodarone 200 MG TAB PO SCH (11:15)
[2022-02-10] MEDS: Cefepime 1 GM in Sodium Chloride 0.9% 100 ML IVPB SCH (17:19)
[2022-02-10] MEDS: Atorvastatin Calcium 10 MG TAB PO SCH (21:11)
[2022-02-11] MEDS ORDERED: Midodrine HCl 5 MG TAB PO SCH (01:30)
[2022-02-11] MEDS: Apixaban 2.5 MG TAB PO SCH (08:19)
[2022-02-11] MEDS: Ezetimibe 10 MG TAB PO SCH (08:19)
[2022-02-11] MEDS: Famotidine 20 MG TAB PO SCH (08:19)
[2022-02-11] MEDS: Midodrine HCl 5 MG TAB PO SCH ×3 (08:20→21:17)
[2022-02-11] MEDS: Ferrous Sulfate 325 MG TAB PO SCH ×2 (08:20→21:17)
[2022-02-11] MEDS: Amiodarone 200 MG TAB PO SCH (08:20)
[2022-02-11] MEDS: Polyethylene Glycol 3350 17 GM Packet PO SCH (08:21)
[2022-02-11 09:22] LABS: Anion Gap 13 mmol/L (10-20); BUN (Urea Nitrogen) 13 mg/dL (8.4-25.7); Calc. Creatinine Clearance 25 mL/min (70-130); Calcium 9.5 mg/dL (7.8-10.44); Carbon Dioxide 28 mmol/L (23-31); Chloride 104 mmol/L (98-107); Estimated GFR 20; Glucose 131 mg/dL (83-110); Magnesium 2.2 mg/dL (1.6-2.6); Potassium 3.6 mmol/L (3.5-5.1); Sodium 141 mmol/L (136-145)
[2022-02-11 09:34] LABS: Anisocytosis SLIGHT = 6-15 cells (100X) (0-5/hpf); Band 2 % (5-11); Eosinophils 2 % (0-10); Helmet Cells SLIGHT = 2-5 cells (100X) (0-1/hpf); Hemoglobin 9.4 g/dL (14.0-18.0); Hypochromia SLIGHT = 6-15 cells (100X) (0-5/hpf); Lymphocytes 10 % (21-51); MDiff Complete? YES; Mean Corpuscular HGB CONC 28.9 g/dL (32.0-36.0); Mean Corpuscular Hemoglobin 25.1 pg (27.0-31.0); Mean Corpuscular Volume 87.1 fL (78.0-98.0); Mean Platelet Volume 9.8 fL (7.4-10.4); Monocytes 3 % (0-10); Neutrophil 81 % (42-75); Platelet Count 382 thou/uL (130-400); Platelet Morphology Comment Appears Adequate; Polychromasia MODERATE = 3-4 cells (100X) (0-2/hpf); RBC Distribution Width 19.8 % (11.5-14.5); Reactive Lymphocytes 2 % (0-10); Red Blood Cell (RBC) Count 3.72 mill/uL (4.70-6.10); Schistocytes SLIGHT = 2-5 cells (100X) (0-1/hpf); Target Cells MODERATE= 6-15 cells (100X) (0-1/hpf); Tear Drops SLIGHT = 2-5 cells (100X) (0-1/hpf); White Blood Cell (WBC) Count 15.1 thou/uL (4.8-10.8)
[2022-02-11] MEDS ORDERED: Morphine 4 MG/ML VIAL SLOW IVP SCH (11:45)
[2022-02-11] MEDS: Cefepime 1 GM in Sodium Chloride 0.9% 100 ML IVPB SCH (17:19)
[2022-02-11] MEDS: Acetaminophen 325 MG TAB PO PRN (21:17)
[2022-02-11] MEDS: Atorvastatin Calcium 10 MG TAB PO SCH (21:17)
[2022-02-11] MEDS ORDERED: Metoprolol Tartrate 5 MG/5 ML VIAL IVP PRN (22:12)
[2022-02-12 08:16] LABS: Vancomycin, Random 14.1 ug/mL (See Comment)
[2022-02-12 08:17] LABS: Albumin 1.5 g/dL (3.4-4.8); Anion Gap 15 mmol/L (10-20); BUN (Urea Nitrogen) 17 mg/dL (8.4-25.7); Calc. Creatinine Clearance 21 mL/min (70-130); Calcium 9.6 mg/dL (7.8-10.44); Carbon Dioxide 25 mmol/L (23-31); Chloride 106 mmol/L (98-107); Estimated GFR 15; Glucose 157 mg/dL (83-110); Phosphorus 2.9 mg/dL (2.3-4.7); Potassium 3.9 mmol/L (3.5-5.1); Sodium 142 mmol/L (136-145)
[2022-02-12] MEDS: Midodrine HCl 5 MG TAB PO SCH ×4 (08:29→21:27)
[2022-02-12 08:52] LABS: #Eosinphils 0.1 thou/uL (0.0-0.7); #Lymphocytes 1.4 thou/uL (1.20-3.40); #Monocytes 0.7 thou/uL (0.11-0.59); #Neutrophils 11.7 thou/uL (1.40-6.50); %Basophils 0.1 % (0.0-1.0); %Eosinophils 0.4 % (0.0-10.0); %Lymphocytes 10.3 % (21.0-51.0); %Monocytes 5.2 % (0.0-10.0); %Neutrophils 84.1 % (42.0-75.0); Hemoglobin 10.3 g/dL (14.0-18.0); Hypochromia SLIGHT = 6-15 cells (100X) (0-5/hpf); MDiff Complete? YES; Mean Corpuscular HGB CONC 29.3 g/dL (32.0-36.0); Mean Corpuscular Hemoglobin 25.5 pg (27.0-31.0); Mean Platelet Volume 9.7 fL (7.4-10.4); Platelet Count 429 thou/uL (130-400); Platelet Morphology Comment Appears Increased; Polychromasia SLIGHT = 2-3 cells (100X) (0-2/hpf); RBC Distribution Width 19.2 % (11.5-14.5); Red Blood Cell (RBC) Count 4.04 mill/uL (4.70-6.10); Target Cells SLIGHT = 2-5 cells (100X) (0-1/hpf); White Blood Cell (WBC) Count 13.9 thou/uL (4.8-10.8)
[2022-02-12] MEDS: Ezetimibe 10 MG TAB PO SCH (13:30)
[2022-02-12] MEDS: Amiodarone 200 MG TAB PO SCH (13:31)
[2022-02-12] MEDS: Famotidine 20 MG TAB PO SCH (13:31)
[2022-02-12] MEDS: Ferrous Sulfate 325 MG TAB PO SCH ×3 (13:32→21:27)
[2022-02-12] MEDS: Polyethylene Glycol 3350 17 GM Packet PO SCH (15:17)
[2022-02-12] MEDS: Apixaban 2.5 MG TAB PO SCH (15:17)
[2022-02-12] MEDS ORDERED: Vancomycin HCl 750 MG in Sodium Chloride 0.9% 250 ML 250 ML IVPB SCH (17:00)
[2022-02-12] MEDS: Cefepime 1 GM in Sodium Chloride 0.9% 100 ML IVPB SCH (18:29)
[2022-02-12] MEDS ORDERED: Apixaban 2.5 MG TAB PO SCH (21:00)
[2022-02-12] MEDS: Atorvastatin Calcium 10 MG TAB PO SCH ×2 (21:13→21:27)
[2022-02-12] MEDS: HYDROcodone/Acetaminophen 5/325 mg Tablet PO PRN (21:14)
[2022-02-13 04:41] LABS: #Eosinphils 0.1 thou/uL (0.0-0.7); #Lymphocytes 1.5 thou/uL (1.20-3.40); #Monocytes 0.9 thou/uL (0.11-0.59); #Neutrophils 9.1 thou/uL (1.40-6.50); %Basophils 0.3 % (0.0-1.0); %Eosinophils 1.1 % (0.0-10.0); %Lymphocytes 12.8 % (21.0-51.0); %Neutrophils 77.8 % (42.0-75.0); Hemoglobin 9.7 g/dL (14.0-18.0); Mean Corpuscular HGB CONC 28.8 g/dL (32.0-36.0); Mean Corpuscular Hemoglobin 25.3 pg (27.0-31.0); Mean Corpuscular Volume 87.9 fL (78.0-98.0); Mean Platelet Volume 10.1 fL (7.4-10.4); Platelet Count 340 thou/uL (130-400); RBC Distribution Width 20.3 % (11.5-14.5); Red Blood Cell (RBC) Count 3.82 mill/uL (4.70-6.10); White Blood Cell (WBC) Count 11.7 thou/uL (4.8-10.8)
[2022-02-13 04:55] LABS: Anion Gap 13 mmol/L (10-20); BUN (Urea Nitrogen) 9 mg/dL (8.4-25.7); Calc. Creatinine Clearance 36 mL/min (70-130); Calcium 8.6 mg/dL (7.8-10.44); Carbon Dioxide 27 mmol/L (23-31); Chloride 103 mmol/L (98-107); Estimated GFR 29; Glucose 105 mg/dL (83-110); Potassium 3.6 mmol/L (3.5-5.1); Sodium 139 mmol/L (136-145)
[2022-02-13] MEDS: Famotidine 20 MG TAB PO SCH (08:49)
[2022-02-13] MEDS: HYDROcodone/Acetaminophen 5/325 mg Tablet PO PRN ×2 (08:50→21:39)
[2022-02-13] MEDS: Amiodarone 200 MG TAB PO SCH ×2 (08:50→21:39)
[2022-02-13] MEDS: Midodrine HCl 5 MG TAB PO SCH ×3 (08:50→21:39)
[2022-02-13] MEDS: Ferrous Sulfate 325 MG TAB PO SCH ×2 (08:50→21:39)
[2022-02-13] MEDS: Ezetimibe 10 MG TAB PO SCH (08:50)
[2022-02-13] MEDS: Polyethylene Glycol 3350 17 GM Packet PO SCH (08:52)
[2022-02-13] MEDS: Cefepime 1 GM in Sodium Chloride 0.9% 100 ML IVPB SCH (17:48)
[2022-02-13] MEDS: Atorvastatin Calcium 10 MG TAB PO SCH (21:39)
[2022-02-14 06:50] LABS: Anion Gap 17 mmol/L (10-20); BUN (Urea Nitrogen) 11 mg/dL (8.4-25.7); Calc. Creatinine Clearance 29 mL/min (70-130); Calcium 8.8 mg/dL (7.8-10.44); Carbon Dioxide 23 mmol/L (23-31); Chloride 103 mmol/L (98-107); Estimated GFR 22; Glucose 61 mg/dL (83-110); Potassium 3.9 mmol/L (3.5-5.1); Sodium 139 mmol/L (136-145)
[2022-02-14 09:33] LABS: #Eosinphils 0.1 thou/uL (0.0-0.7); #Lymphocytes 0.9 thou/uL (1.20-3.40); #Monocytes 0.2 thou/uL (0.11-0.59); #Neutrophils 2.5 thou/uL (1.40-6.50); %Basophils 1.1 % (0.0-1.0); %Eosinophils 3.8 % (0.0-10.0); %Lymphocytes 23.3 % (21.0-51.0); %Monocytes 3.9 % (0.0-10.0); %Neutrophils 67.9 % (42.0-75.0); Hemoglobin 8.7 g/dL (14.0-18.0); Mean Corpuscular HGB CONC 30.2 g/dL (32.0-36.0); Mean Corpuscular Hemoglobin 25.8 pg (27.0-31.0); Mean Corpuscular Volume 85.4 fL (78.0-98.0); Mean Platelet Volume 9.4 fL (7.4-10.4); Platelet Count 301 thou/uL (130-400); Red Blood Cell (RBC) Count 3.39 mill/uL (4.70-6.10); White Blood Cell (WBC) Count 3.7 thou/uL (4.8-10.8)
[2022-02-14 09:57] LABS: Vancomycin, Random 14.4 ug/mL (See Comment)
[2022-02-14] MEDS: Ezetimibe 10 MG TAB PO SCH (10:12)
[2022-02-14] MEDS: Amiodarone 200 MG TAB PO SCH ×2 (10:12→21:55)
[2022-02-14] MEDS: Ferrous Sulfate 325 MG TAB PO SCH ×2 (10:12→21:54)
[2022-02-14] MEDS: Famotidine 20 MG TAB PO SCH (10:12)
[2022-02-14] MEDS: Midodrine HCl 5 MG TAB PO SCH ×3 (10:13→21:54)
[2022-02-14] MEDS: Polyethylene Glycol 3350 17 GM Packet PO SCH (10:13)
[2022-02-14] MEDS: HYDROcodone/Acetaminophen 5/325 mg Tablet PO PRN (14:41)
[2022-02-14] MEDS ORDERED: Vancomycin HCl 750 MG in Sodium Chloride 0.9% 250 ML 250 ML IVPB SCH (17:00)
[2022-02-14] MEDS: Cefepime 1 GM in Sodium Chloride 0.9% 100 ML IVPB SCH (17:48)
[2022-02-14] MEDS: Atorvastatin Calcium 10 MG TAB PO SCH (21:55)
[2022-02-15 04:34] LABS: #Basophils 0.1 thou/uL (0.0-0.2); #Eosinphils 0.1 thou/uL (0.0-0.7); #Lymphocytes 1.5 thou/uL (1.20-3.40); #Monocytes 0.7 thou/uL (0.11-0.59); #Neutrophils 8.6 thou/uL (1.40-6.50); %Basophils 0.5 % (0.0-1.0); %Eosinophils 0.9 % (0.0-10.0); %Lymphocytes 13.5 % (21.0-51.0); %Monocytes 6.3 % (0.0-10.0); %Neutrophils 78.8 % (42.0-75.0); Hemoglobin 10.6 g/dL (14.0-18.0); Mean Corpuscular HGB CONC 29.4 g/dL (32.0-36.0); Mean Corpuscular Hemoglobin 25.5 pg (27.0-31.0); Mean Corpuscular Volume 86.9 fL (78.0-98.0); Mean Platelet Volume 10.4 fL (7.4-10.4); Platelet Count 297 thou/uL (130-400); RBC Distribution Width 20.7 % (11.5-14.5); Red Blood Cell (RBC) Count 4.15 mill/uL (4.70-6.10); White Blood Cell (WBC) Count 10.9 thou/uL (4.8-10.8)
[2022-02-15 04:52] LABS: Anion Gap 14 mmol/L (10-20); BUN (Urea Nitrogen) 7 mg/dL (8.4-25.7); Calc. Creatinine Clearance 46 mL/min (70-130); Calcium 8.9 mg/dL (7.8-10.44); Carbon Dioxide 27 mmol/L (23-31); Chloride 103 mmol/L (98-107); Estimated GFR 39; Glucose 64 mg/dL (83-110); Potassium 3.7 mmol/L (3.5-5.1); Sodium 140 mmol/L (136-145)
[2022-02-15] MEDS: Midodrine HCl 5 MG TAB PO SCH ×3 (08:20→20:55)
[2022-02-15] MEDS: Apixaban 2.5 MG TAB PO SCH ×2 (08:20→20:55)
[2022-02-15] MEDS: Ezetimibe 10 MG TAB PO SCH (08:20)
[2022-02-15] MEDS: Famotidine 20 MG TAB PO SCH (08:21)
[2022-02-15] MEDS: Ferrous Sulfate 325 MG TAB PO SCH ×2 (08:21→20:55)
[2022-02-15] MEDS: Amiodarone 200 MG TAB PO SCH ×2 (08:21→20:56)
[2022-02-15] MEDS: Polyethylene Glycol 3350 17 GM Packet PO SCH (08:21)
[2022-02-15] MEDS ORDERED: Meropenem 1 GM in Sodium Chloride 0.9% 100 ML IVPB SCH ×2 (08:45→17:00)
[2022-02-15] MEDS: HYDROcodone/Acetaminophen 5/325 mg Tablet PO PRN (14:41)
[2022-02-15] MEDS: Meropenem 1 GM in Sodium Chloride 0.9% 100 ML IVPB SCH (16:00)
[2022-02-15] MEDS: Atorvastatin Calcium 10 MG TAB PO SCH (20:56)
[2022-02-16 04:15] LABS: #Eosinphils 0.1 thou/uL (0.0-0.7); #Monocytes 0.8 thou/uL (0.11-0.59); #Neutrophils 8.5 thou/uL (1.40-6.50); %Basophils 0.2 % (0.0-1.0); %Eosinophils 0.7 % (0.0-10.0); %Lymphocytes 17.1 % (21.0-51.0); %Monocytes 7.3 % (0.0-10.0); %Neutrophils 74.6 % (42.0-75.0); Hemoglobin 10.5 g/dL (14.0-18.0); Mean Corpuscular HGB CONC 29.9 g/dL (32.0-36.0); Mean Corpuscular Hemoglobin 26.3 pg (27.0-31.0); Mean Corpuscular Volume 87.8 fL (78.0-98.0); Mean Platelet Volume 10.6 fL (7.4-10.4); Platelet Count 300 thou/uL (130-400); Red Blood Cell (RBC) Count 3.98 mill/uL (4.70-6.10); White Blood Cell (WBC) Count 11.4 thou/uL (4.8-10.8)
[2022-02-16 04:28] LABS: Anion Gap 14 mmol/L (10-20); BUN (Urea Nitrogen) 10 mg/dL (8.4-25.7); Calc. Creatinine Clearance 34 mL/min (70-130); Calcium 9.3 mg/dL (7.8-10.44); Carbon Dioxide 26 mmol/L (23-31); Chloride 103 mmol/L (98-107); Estimated GFR 26; Glucose 107 mg/dL (83-110); Potassium 3.9 mmol/L (3.5-5.1); Sodium 139 mmol/L (136-145)
[2022-02-16] MEDS: Meropenem 1 GM in Sodium Chloride 0.9% 100 ML IVPB SCH ×2 (05:03→19:45)
[2022-02-16] MEDS: HYDROcodone/Acetaminophen 5/325 mg Tablet PO PRN (13:27)
[2022-02-16] MEDS: Midodrine HCl 5 MG TAB PO SCH ×3 (13:34→22:23)
[2022-02-16] MEDS: Ferrous Sulfate 325 MG TAB PO SCH ×2 (13:34→22:23)
[2022-02-16] MEDS: Apixaban 2.5 MG TAB PO SCH ×2 (13:34→22:23)
[2022-02-16] MEDS: Famotidine 20 MG TAB PO SCH (13:35)
[2022-02-16] MEDS: Ezetimibe 10 MG TAB PO SCH (13:35)
[2022-02-16] MEDS: Amiodarone 200 MG TAB PO SCH ×2 (13:35→22:24)
[2022-02-16] MEDS: Polyethylene Glycol 3350 17 GM Packet PO SCH (13:43)
[2022-02-16] MEDS ORDERED: Sodium Chloride 0.9% 500 ML IV SCH (16:15)
[2022-02-16] MEDS: Albumin 25% 25 GM/100 ML BOT IVPB SCH ×2 (17:45→22:47)
[2022-02-16] MEDS: Epoetin (ESRD) 10,000 UNITS/ML VIAL SC SCH (18:24)
[2022-02-16] MEDS ORDERED: Timolol 0.5% Ophth Soln 5 ml Bottle L EYE SCH (21:00)
[2022-02-16] MEDS: Atorvastatin Calcium 10 MG TAB PO SCH (22:24)
[2022-02-16] MEDS: DorzolamidE/Timolol 2%/0.5% Ophth Soln 10 ml Bottle L EYE SCH (22:24)
[2022-02-17 04:46] LABS: #Lymphocytes 1.4 thou/uL (1.20-3.40); #Monocytes 0.8 thou/uL (0.11-0.59); #Neutrophils 7.4 thou/uL (1.40-6.50); %Basophils 0.5 % (0.0-1.0); %Eosinophils 0.3 % (0.0-10.0); %Lymphocytes 14.3 % (21.0-51.0); %Monocytes 8.1 % (0.0-10.0); %Neutrophils 76.9 % (42.0-75.0); Hemoglobin 8.6 g/dL (14.0-18.0); Mean Corpuscular HGB CONC 29.5 g/dL (32.0-36.0); Mean Corpuscular Hemoglobin 25.8 pg (27.0-31.0); Mean Corpuscular Volume 87.5 fL (78.0-98.0); Mean Platelet Volume 9.9 fL (7.4-10.4); Platelet Count 257 thou/uL (130-400); RBC Distribution Width 20.4 % (11.5-14.5); Red Blood Cell (RBC) Count 3.34 mill/uL (4.70-6.10); White Blood Cell (WBC) Count 9.6 thou/uL (4.8-10.8)
[2022-02-17 04:58] LABS: Anion Gap 15 mmol/L (10-20); BUN (Urea Nitrogen) 7 mg/dL (8.4-25.7); Calc. Creatinine Clearance 50 mL/min (70-130); Calcium 9.3 mg/dL (7.8-10.44); Carbon Dioxide 28 mmol/L (23-31); Chloride 102 mmol/L (98-107); Estimated GFR 41; Glucose 92 mg/dL (83-110); Potassium 3.5 mmol/L (3.5-5.1); Sodium 141 mmol/L (136-145)
[2022-02-17] MEDS: Albumin 25% 25 GM/100 ML BOT IVPB SCH ×2 (05:04→11:17)
[2022-02-17] MEDS: Meropenem 1 GM in Sodium Chloride 0.9% 100 ML IVPB SCH ×2 (05:15→17:25)
[2022-02-17] MEDS: Amiodarone 200 MG TAB PO SCH ×2 (10:48→21:09)
[2022-02-17] MEDS: Ezetimibe 10 MG TAB PO SCH (10:48)
[2022-02-17] MEDS: Midodrine HCl 5 MG TAB PO SCH ×3 (10:49→21:09)
[2022-02-17] MEDS: Ferrous Sulfate 325 MG TAB PO SCH ×2 (10:50→21:09)
[2022-02-17] MEDS: Apixaban 2.5 MG TAB PO SCH ×2 (10:51→21:09)
[2022-02-17] MEDS: Cinacalcet HCl 30 MG TAB PO SCH (10:51)
[2022-02-17] MEDS: DorzolamidE/Timolol 2%/0.5% Ophth Soln 10 ml Bottle L EYE SCH ×2 (10:51→21:10)
[2022-02-17] MEDS: Polyethylene Glycol 3350 17 GM Packet PO SCH (10:51)
[2022-02-17] MEDS: Atorvastatin Calcium 10 MG TAB PO SCH (21:10)
[2022-02-18] MEDS: Meropenem 1 GM in Sodium Chloride 0.9% 100 ML IVPB SCH ×2 (05:17→16:03)
[2022-02-18 09:11] LABS: #Eosinphils 0.1 thou/uL (0.0-0.7); #Lymphocytes 0.8 thou/uL (1.20-3.40); #Monocytes 0.5 thou/uL (0.11-0.59); #Neutrophils 5.3 thou/uL (1.40-6.50); %Basophils 0.6 % (0.0-1.0); %Eosinophils 1.4 % (0.0-10.0); %Lymphocytes 11.8 % (21.0-51.0); %Monocytes 7.9 % (0.0-10.0); %Neutrophils 78.4 % (42.0-75.0); Hemoglobin 9.7 g/dL (14.0-18.0); Mean Corpuscular HGB CONC 29.4 g/dL (32.0-36.0); Mean Corpuscular Hemoglobin 25.3 pg (27.0-31.0); Mean Corpuscular Volume 86.2 fL (78.0-98.0); Platelet Count 205 thou/uL (130-400); RBC Distribution Width 20.8 % (11.5-14.5); Red Blood Cell (RBC) Count 3.83 mill/uL (4.70-6.10); White Blood Cell (WBC) Count 6.7 thou/uL (4.8-10.8)
[2022-02-18] MEDS: Polyethylene Glycol 3350 17 GM Packet PO SCH (09:28)
[2022-02-18] MEDS: Midodrine HCl 5 MG TAB PO SCH ×3 (09:31→21:46)
[2022-02-18] MEDS: Ezetimibe 10 MG TAB PO SCH (09:31)
[2022-02-18] MEDS: Cinacalcet HCl 30 MG TAB PO SCH (09:31)
[2022-02-18] MEDS: Amiodarone 200 MG TAB PO SCH ×2 (09:32→21:47)
[2022-02-18] MEDS: Apixaban 2.5 MG TAB PO SCH ×2 (09:32→21:47)
[2022-02-18] MEDS: Ferrous Sulfate 325 MG TAB PO SCH ×2 (09:32→21:47)
[2022-02-18] MEDS: DorzolamidE/Timolol 2%/0.5% Ophth Soln 10 ml Bottle L EYE SCH ×2 (09:32→21:47)
[2022-02-18 09:50] LABS: Anisocytosis MODERATE=16-30 cells (100X) (0-5/hpf); Hypochromia SLIGHT = 6-15 cells (100X) (0-5/hpf); Platelet Morphology Comment Appears Adequate; Polychromasia SLIGHT = 2-3 cells (100X) (0-2/hpf)
[2022-02-18] MEDS: Atorvastatin Calcium 10 MG TAB PO SCH (21:47)
[2022-02-19] MEDS: Meropenem 1 GM in Sodium Chloride 0.9% 100 ML IVPB SCH ×2 (05:39→18:12)
[2022-02-19] MEDS: Midodrine HCl 5 MG TAB PO SCH ×3 (13:10→21:23)
[2022-02-19] MEDS: Amiodarone 200 MG TAB PO SCH ×2 (13:38→21:21)
[2022-02-19] MEDS: Cinacalcet HCl 30 MG TAB PO SCH ×2 (13:38→13:52)
[2022-02-19] MEDS: Apixaban 2.5 MG TAB PO SCH ×2 (13:38→21:24)
[2022-02-19] MEDS: Ezetimibe 10 MG TAB PO SCH ×2 (13:39→13:54)
[2022-02-19] MEDS: DorzolamidE/Timolol 2%/0.5% Ophth Soln 10 ml Bottle L EYE SCH ×2 (13:39→21:24)
[2022-02-19] MEDS: Ferrous Sulfate 325 MG TAB PO SCH ×3 (13:39→21:24)
[2022-02-19] MEDS: Polyethylene Glycol 3350 17 GM Packet PO SCH ×2 (13:40→13:55)
[2022-02-19] MEDS: Timolol 0.5% Ophth Soln 5 ml Bottle EA EYE SCH ×3 (14:54→14:56)
[2022-02-19 20:16] LABS: Hemoglobin 10.1 g/dL (14.0-18.0); Mean Corpuscular HGB CONC 29.4 g/dL (32.0-36.0); Mean Corpuscular Hemoglobin 25.3 pg (27.0-31.0); Mean Corpuscular Volume 85.8 fL (78.0-98.0); Mean Platelet Volume 6.3 fL (7.4-10.4); Platelet Count 180 thou/uL (130-400); RBC Distribution Width 20.4 % (11.5-14.5); Red Blood Cell (RBC) Count 3.98 mill/uL (4.70-6.10); White Blood Cell (WBC) Count 7.1 thou/uL (4.8-10.8)
[2022-02-19 20:31] LABS: Anisocytosis SLIGHT = 6-15 cells (100X) (0-5/hpf); Band 1 % (5-11); Eosinophils 1 % (0-10); Hypochromia SLIGHT = 6-15 cells (100X) (0-5/hpf); Lymphocytes 12 % (21-51); MDiff Complete? YES; Monocytes 5 % (0-10); Neutrophil 80 % (42-75); Ovalocytes SLIGHT = 2-5 cells (100X) (0-1/hpf); Platelet Morphology Comment Appears Adequate; Polychromasia SLIGHT = 2-3 cells (100X) (0-2/hpf); Target Cells SLIGHT = 2-5 cells (100X) (0-1/hpf)
[2022-02-19 20:42] LABS: Anion Gap 16 mmol/L (10-20); BUN (Urea Nitrogen) 7 mg/dL (8.4-25.7); Calc. Creatinine Clearance 46 mL/min (70-130); Calcium 8.9 mg/dL (7.8-10.44); Carbon Dioxide 26 mmol/L (23-31); Chloride 105 mmol/L (98-107); Estimated GFR 37; Glucose 84 mg/dL (83-110); Potassium 4.7 mmol/L (3.5-5.1); Sodium 142 mmol/L (136-145)
[2022-02-19] MEDS: Atorvastatin Calcium 10 MG TAB PO SCH (21:24)
[2022-02-20 04:59] LABS: Anion Gap 12 mmol/L (10-20); BUN (Urea Nitrogen) 8 mg/dL (8.4-25.7); Calc. Creatinine Clearance 41 mL/min (70-130); Calcium 8.9 mg/dL (7.8-10.44); Carbon Dioxide 29 mmol/L (23-31); Chloride 103 mmol/L (98-107); Estimated GFR 33; Glucose 83 mg/dL (83-110); Potassium 3.4 mmol/L (3.5-5.1); Sodium 141 mmol/L (136-145)
[2022-02-20 05:02] LABS: Band 2 % (5-11); Hemoglobin 9.7 g/dL (14.0-18.0); Hypochromia SLIGHT = 6-15 cells (100X) (0-5/hpf); Lymphocytes 7 % (21-51); MDiff Complete? YES; Mean Corpuscular HGB CONC 30.4 g/dL (32.0-36.0); Mean Corpuscular Volume 85.5 fL (78.0-98.0); Mean Platelet Volume 11.7 fL (7.4-10.4); Monocytes 9 % (0-10); Neutrophil 82 % (42-75); Platelet Count 171 thou/uL (130-400); Platelet Morphology Comment Appears Adequate; RBC Distribution Width 19.7 % (11.5-14.5); Red Blood Cell (RBC) Count 3.71 mill/uL (4.70-6.10); White Blood Cell (WBC) Count 6.1 thou/uL (4.8-10.8)
[2022-02-20] MEDS: Meropenem 1 GM in Sodium Chloride 0.9% 100 ML IVPB SCH (05:02)
[2022-02-20] MEDS: Timolol 0.5% Ophth Soln 5 ml Bottle EA EYE SCH (05:04)
[2022-02-20] MEDS: Midodrine HCl 5 MG TAB PO SCH ×4 (09:46→21:29)
[2022-02-20] MEDS: Cinacalcet HCl 30 MG TAB PO SCH ×2 (09:46→10:44)
[2022-02-20] MEDS: DorzolamidE/Timolol 2%/0.5% Ophth Soln 10 ml Bottle L EYE SCH ×2 (09:46→21:28)
[2022-02-20] MEDS: Apixaban 2.5 MG TAB PO SCH ×3 (09:46→21:29)
[2022-02-20] MEDS: Amiodarone 200 MG TAB PO SCH ×3 (09:46→21:29)
[2022-02-20] MEDS: Ezetimibe 10 MG TAB PO SCH ×2 (09:46→10:44)
[2022-02-20] MEDS: Polyethylene Glycol 3350 17 GM Packet PO SCH ×2 (09:46→10:44)
[2022-02-20] MEDS: Ferrous Sulfate 325 MG TAB PO SCH ×3 (09:46→21:29)
[2022-02-20] MEDS ORDERED: Dextrose 50% Abboject 50 ML SYRINGE IVP PRN (11:15)
[2022-02-20] MEDS ORDERED: Dextrose 5% in Water 1,000 ML IV PRN (11:15)
[2022-02-20] MEDS: Meropenem 500 MG in Sodium Chloride 0.9% 100 ML IVPB SCH (16:12)
[2022-02-20] MEDS: Atorvastatin Calcium 10 MG TAB PO SCH (21:28)
[2022-02-21] MEDS: Midodrine HCl 5 MG TAB PO SCH ×3 (09:02→21:05)
[2022-02-21] MEDS: Acetaminophen 325 MG TAB PO PRN (09:03)
[2022-02-21] MEDS: Apixaban 2.5 MG TAB PO SCH ×2 (14:38→21:04)
[2022-02-21] MEDS: DorzolamidE/Timolol 2%/0.5% Ophth Soln 10 ml Bottle L EYE SCH ×2 (14:38→21:21)
[2022-02-21] MEDS: Polyethylene Glycol 3350 17 GM Packet PO SCH (14:39)
[2022-02-21] MEDS: Ferrous Sulfate 325 MG TAB PO SCH ×2 (14:39→21:04)
[2022-02-21] MEDS: Metoprolol Tartrate 5 MG/5 ML VIAL IVP SCH ×2 (14:47→17:24)
[2022-02-21] MEDS: Ezetimibe 10 MG TAB PO SCH (14:48)
[2022-02-21] MEDS: Cinacalcet HCl 30 MG TAB PO SCH (14:48)
[2022-02-21] MEDS: Amiodarone 200 MG TAB PO SCH ×2 (14:49→21:05)
[2022-02-21] MEDS: Meropenem 500 MG in Sodium Chloride 0.9% 100 ML IVPB SCH (17:50)
[2022-02-21] MEDS: Atorvastatin Calcium 10 MG TAB PO SCH (21:04)
[2022-02-22 06:42] LABS: Anion Gap 12 mmol/L (10-20); BUN (Urea Nitrogen) 8 mg/dL (8.4-25.7); Calc. Creatinine Clearance 39 mL/min (70-130); Calcium 8.9 mg/dL (7.8-10.44); Carbon Dioxide 30 mmol/L (23-31); Chloride 103 mmol/L (98-107); Estimated GFR 31; Glucose 106 mg/dL (83-110); Potassium 3.8 mmol/L (3.5-5.1); Sodium 141 mmol/L (136-145)
[2022-02-22] MEDS: Polyethylene Glycol 3350 17 GM Packet PO SCH (08:36)
[2022-02-22] MEDS: Cinacalcet HCl 30 MG TAB PO SCH (08:39)
[2022-02-22] MEDS: Ferrous Sulfate 325 MG TAB PO SCH ×2 (08:39→21:01)
[2022-02-22] MEDS: Midodrine HCl 5 MG TAB PO SCH ×3 (08:39→20:59)
[2022-02-22] MEDS: Amiodarone 200 MG TAB PO SCH ×2 (08:39→21:00)
[2022-02-22] MEDS: Ezetimibe 10 MG TAB PO SCH (08:39)
[2022-02-22] MEDS: Apixaban 2.5 MG TAB PO SCH ×2 (08:46→20:59)
[2022-02-22] MEDS: DorzolamidE/Timolol 2%/0.5% Ophth Soln 10 ml Bottle L EYE SCH ×2 (11:06→21:01)
[2022-02-22] MEDS: Meropenem 500 MG in Sodium Chloride 0.9% 100 ML IVPB SCH (17:04)
[2022-02-22] MEDS: Atorvastatin Calcium 10 MG TAB PO SCH (21:01)
[2022-02-23] MEDS: Ezetimibe 10 MG TAB PO SCH (08:28)
[2022-02-23] MEDS: DorzolamidE/Timolol 2%/0.5% Ophth Soln 10 ml Bottle L EYE SCH ×2 (08:28→20:21)
[2022-02-23] MEDS: Amiodarone 200 MG TAB PO SCH ×2 (08:28→20:20)
[2022-02-23] MEDS: Cinacalcet HCl 30 MG TAB PO SCH (08:28)
[2022-02-23] MEDS: Ferrous Sulfate 325 MG TAB PO SCH ×2 (08:28→20:21)
[2022-02-23] MEDS: Apixaban 2.5 MG TAB PO SCH ×2 (08:28→20:20)
[2022-02-23] MEDS: Midodrine HCl 5 MG TAB PO SCH ×3 (08:28→20:20)
[2022-02-23] MEDS: Polyethylene Glycol 3350 17 GM Packet PO SCH (08:29)
[2022-02-23 14:12] VITALS: BMI 25.8
[2022-02-23] MEDS: Acetaminophen 325 MG TAB PO PRN (14:26)
[2022-02-23] MEDS: Epoetin (ESRD) 10,000 UNITS/ML VIAL SC SCH (14:26)
[2022-02-23] MEDS: Meropenem 500 MG in Sodium Chloride 0.9% 100 ML IVPB SCH (17:21)
[2022-02-23] MEDS: Atorvastatin Calcium 10 MG TAB PO SCH (20:20)
[2022-02-24 06:05] LABS: Mean Corpuscular HGB CONC 30.3 g/dL (32.0-36.0); Mean Corpuscular Hemoglobin 25.6 pg (27.0-31.0); Mean Corpuscular Volume 84.5 fL (78.0-98.0); Mean Platelet Volume 8.1 fL (7.4-10.4); Platelet Count 161 thou/uL (130-400); RBC Distribution Width 19.3 % (11.5-14.5); Red Blood Cell (RBC) Count 3.89 mill/uL (4.70-6.10); White Blood Cell (WBC) Count 6.8 thou/uL (4.8-10.8)
[2022-02-24 06:24] LABS: Anion Gap 11 mmol/L (10-20); BUN (Urea Nitrogen) 7 mg/dL (8.4-25.7); Calc. Creatinine Clearance 41 mL/min (70-130); Calcium 8.6 mg/dL (7.8-10.44); Carbon Dioxide 30 mmol/L (23-31); Chloride 101 mmol/L (98-107); Estimated GFR 35; Glucose 80 mg/dL (83-110); Potassium 3.6 mmol/L (3.5-5.1); Sodium 138 mmol/L (136-145)
[2022-02-24] MEDS: Midodrine HCl 5 MG TAB PO SCH ×3 (09:04→21:03)
[2022-02-24] MEDS: Amiodarone 200 MG TAB PO SCH ×2 (09:05→21:04)
[2022-02-24] MEDS: Ferrous Sulfate 325 MG TAB PO SCH ×2 (09:05→21:03)
[2022-02-24] MEDS: Cinacalcet HCl 30 MG TAB PO SCH (09:05)
[2022-02-24] MEDS: Apixaban 2.5 MG TAB PO SCH ×2 (09:05→21:04)
[2022-02-24] MEDS: Ezetimibe 10 MG TAB PO SCH (09:05)
[2022-02-24] MEDS: DorzolamidE/Timolol 2%/0.5% Ophth Soln 10 ml Bottle L EYE SCH ×2 (09:05→21:04)
[2022-02-24] MEDS: Polyethylene Glycol 3350 17 GM Packet PO SCH (09:05)
[2022-02-24] MEDS: Meropenem 500 MG in Sodium Chloride 0.9% 100 ML IVPB SCH (16:22)
[2022-02-24] MEDS: Atorvastatin Calcium 10 MG TAB PO SCH (21:04)
[2022-02-25] MEDS: Ezetimibe 10 MG TAB PO SCH (09:43)
[2022-02-25] MEDS: Cinacalcet HCl 30 MG TAB PO SCH (09:43)
[2022-02-25] MEDS: Amiodarone 200 MG TAB PO SCH ×2 (09:43→20:47)
[2022-02-25] MEDS: Polyethylene Glycol 3350 17 GM Packet PO SCH (09:43)
[2022-02-25] MEDS: Midodrine HCl 5 MG TAB PO SCH ×3 (09:44→20:47)
[2022-02-25] MEDS: Ferrous Sulfate 325 MG TAB PO SCH ×2 (09:44→20:48)
[2022-02-25] MEDS: DorzolamidE/Timolol 2%/0.5% Ophth Soln 10 ml Bottle L EYE SCH ×2 (09:47→20:47)
[2022-02-25] MEDS: Apixaban 2.5 MG TAB PO SCH ×2 (10:13→20:47)
[2022-02-25] MEDS: Meropenem 500 MG in Sodium Chloride 0.9% 100 ML IVPB SCH (16:58)
[2022-02-25] MEDS: Atorvastatin Calcium 10 MG TAB PO SCH (20:48)
[2022-02-26 07:09] LABS: #Eosinphils 0.1 thou/uL (0.0-0.7); #Lymphocytes 2.2 thou/uL (1.20-3.40); #Monocytes 0.9 thou/uL (0.11-0.59); #Neutrophils 3.9 thou/uL (1.40-6.50); %Basophils 0.4 % (0.0-1.0); %Lymphocytes 30.6 % (21.0-51.0); %Monocytes 12.6 % (0.0-10.0); %Neutrophils 54.3 % (42.0-75.0); Hemoglobin 9.4 g/dL (14.0-18.0); Mean Corpuscular HGB CONC 28.8 g/dL (32.0-36.0); Mean Corpuscular Hemoglobin 24.4 pg (27.0-31.0); Mean Corpuscular Volume 84.9 fL (78.0-98.0); Mean Platelet Volume 11.4 fL (7.4-10.4); Platelet Count 234 thou/uL (130-400); RBC Distribution Width 19.4 % (11.5-14.5); Red Blood Cell (RBC) Count 3.84 mill/uL (4.70-6.10); White Blood Cell (WBC) Count 7.2 thou/uL (4.8-10.8)
[2022-02-26 07:26] LABS: Anion Gap 10 mmol/L (10-20); BUN (Urea Nitrogen) 12 mg/dL (8.4-25.7); Calc. Creatinine Clearance 23 mL/min (70-130); Calcium 8.8 mg/dL (7.8-10.44); Carbon Dioxide 30 mmol/L (23-31); Chloride 102 mmol/L (98-107); Estimated GFR 18; Glucose 125 mg/dL (83-110); Potassium 3.7 mmol/L (3.5-5.1); Sodium 138 mmol/L (136-145)
[2022-02-26 07:40] LABS: Anisocytosis SLIGHT = 6-15 cells (100X) (0-5/hpf); Hypochromia SLIGHT = 6-15 cells (100X) (0-5/hpf); MDiff Complete? YES; Ovalocytes SLIGHT = 2-5 cells (100X) (0-1/hpf); Platelet Morphology Comment Appears Adequate; Polychromasia SLIGHT = 2-3 cells (100X) (0-2/hpf); Target Cells SLIGHT = 2-5 cells (100X) (0-1/hpf)
[2022-02-26] MEDS: Ezetimibe 10 MG TAB PO SCH (13:38)
[2022-02-26] MEDS: Amiodarone 200 MG TAB PO SCH (13:38)
[2022-02-26] MEDS: Cinacalcet HCl 30 MG TAB PO SCH (13:38)
[2022-02-26] MEDS: Ferrous Sulfate 325 MG TAB PO SCH (13:39)
[2022-02-26] MEDS: Midodrine HCl 5 MG TAB PO SCH ×2 (13:39→13:51)
[2022-02-26] MEDS: DorzolamidE/Timolol 2%/0.5% Ophth Soln 10 ml Bottle L EYE SCH (13:39)
[2022-02-26] MEDS: Polyethylene Glycol 3350 17 GM Packet PO SCH (13:40)
[2022-02-26] MEDS: Apixaban 2.5 MG TAB PO SCH (13:43)
[2022-02-26 16:27] VITALS: BP 144/68; TEMP 98.1
[2022-02-26] MEDS: Meropenem 500 MG in Sodium Chloride 0.9% 100 ML IVPB SCH (17:32)
== END 2022-02-26 19:07 | DRG 853 ==
LOC: ERS 12:33 → ERHOLD 17:49 → IMCU/EMU 20:11 → 2NO 02-11 18:07 → T4-B 02-21 20:49
PROVIDERS: ADMIT Internal Medicine; ATTEND Internal Medicine
PROC: 5A1D70Z Performance of Urinary Filtration, Intermittent, Less than 6 Hours Per Day (ICD-10-PCS; 2022-02-05)
PROC: 3E03329 Introduction of Other Anti-infective into Peripheral Vein, Percutaneous Approach (ICD-10-PCS; 2022-02-08)
PROC: 0JBR0ZZ Excision of Left Foot Subcutaneous Tissue and Fascia, Open Approach (ICD-10-PCS; 2022-02-11)
PROC: 0LBW0ZZ Excision of Left Foot Tendon, Open Approach (ICD-10-PCS; principal; 2022-02-26)
PROC: 02HV33Z Insertion of Infusion Device into Superior Vena Cava, Percutaneous Approach (ICD-10-PCS; 2022-02-26)
PROC: B548ZZA Ultrasonography of Superior Vena Cava, Guidance (ICD-10-PCS; 2022-02-26)
DX: A41.59 Other Gram-negative sepsis (principal); N18.6 End stage renal disease; J18.9 Pneumonia, unspecified organism; G93.41 Metabolic encephalopathy; I12.0 Hypertensive chronic kidney disease with stage 5 chronic kidney disease or end stage renal disease; M86.172 Other acute osteomyelitis, left ankle and foot; M86.171 Other acute osteomyelitis, right ankle and foot; L97.419 Non-pressure chronic ulcer of right heel and midfoot with unspecified severity; L97.429 Non-pressure chronic ulcer of left heel and midfoot with unspecified severity; D63.1 Anemia in chronic kidney disease; Z51.5 Encounter for palliative care; Z20.822 Contact with and (suspected) exposure to COVID-19; I25.10 Atherosclerotic heart disease of native coronary artery without angina pectoris; E11.621 Type 2 diabetes mellitus with foot ulcer; H40.9 Unspecified glaucoma; I48.0 Paroxysmal atrial fibrillation; E11.69 Type 2 diabetes mellitus with other specified complication; E11.51 Type 2 diabetes mellitus with diabetic peripheral angiopathy without gangrene; E78.5 Hyperlipidemia, unspecified; D50.9 Iron deficiency anemia, unspecified; E87.6 Hypokalemia; E83.42 Hypomagnesemia; I95.9 Hypotension, unspecified; Z95.5 Presence of coronary angioplasty implant and graft; Z88.0 Allergy status to penicillin; Z91.041 Radiographic dye allergy status; Z91.011 Allergy to milk products; Z79.01 Long term (current) use of anticoagulants; Z99.2 Dependence on renal dialysis; Z83.3 Family history of diabetes mellitus; Z98.41 Cataract extraction status, right eye; Z79.899 Other long term (current) drug therapy
CPT/HCPCS: 36415; 36416; 36569; 71045; 74018; 80048; 80053; 80069; 80202; 83605; 83735; 85025; 85027; 87040; 87070; 87077; 87186; 87205; 90935; 93005; 93923; 96361; 96374; 96375; 96376; 97139; G0257; J0282; J0692; J1644; J2185; J3370; J3475; J3490; J7030; J7050; J7070; J7999; P9047; Q4081; U0003; U0005

== ENCOUNTER 2022-03-09 09:45 | Inpatient (IN) | payer OTHER ==
[2022-03-09 10:29] LABS: #Basophils 0.1 thou/uL (0.0-0.2); #Eosinphils 0.1 thou/uL (0.0-0.7); #Lymphocytes 2.5 thou/uL (1.20-3.40); #Monocytes 0.6 thou/uL (0.11-0.59); #Neutrophils 4.2 thou/uL (1.40-6.50); %Basophils 1.2 % (0.0-1.0); %Lymphocytes 33.1 % (21.0-51.0); %Monocytes 8.6 % (0.0-10.0); %Neutrophils 56.2 % (42.0-75.0); Hemoglobin 10.5 g/dL (14.0-18.0); Mean Corpuscular HGB CONC 29.2 g/dL (32.0-36.0); Mean Corpuscular Hemoglobin 24.8 pg (27.0-31.0); Mean Platelet Volume 10.7 fL (7.4-10.4); Platelet Count 227 thou/uL (130-400); RBC Distribution Width 19.3 % (11.5-14.5); Red Blood Cell (RBC) Count 4.23 mill/uL (4.70-6.10); White Blood Cell (WBC) Count 7.4 thou/uL (4.8-10.8)
[2022-03-09 10:45] LABS: Hypochromia SLIGHT = 6-15 cells (100X) (0-5/hpf); MDiff Complete? YES; Platelet Morphology Comment Appears Adequate; Polychromasia SLIGHT = 2-3 cells (100X) (0-2/hpf); Target Cells SLIGHT = 2-5 cells (100X) (0-1/hpf)
[2022-03-09 10:49] LABS: ALT (SGPT) Less than 7 U/L (8-55); AST (SGOT) 38 U/L (5-34); Albumin 1.8 g/dL (3.4-4.8); Alkaline Phosphatase 204 U/L (40-110); Anion Gap 11 mmol/L (10-20); BUN (Urea Nitrogen) 9 mg/dL (8.4-25.7); Bilirubin, Total 0.9 mg/dL (0.2-1.2); Calc. Creatinine Clearance 0 mL/min (70-130); Calcium 9.4 mg/dL (7.8-10.44); Carbon Dioxide 26 mmol/L (23-31); Chloride 106 mmol/L (98-107); Estimated GFR 24; Globulin 4.5 g/dL (2.4-3.5); Potassium 3.5 mmol/L (3.5-5.1); Protein, Total 6.3 g/dL (5.8-8.1); Sodium 139 mmol/L (136-145)
[2022-03-09 11:04] LABS: Glucose 33 mg/dL (83-110)
[2022-03-09] MEDS ORDERED: Acetaminophen 325 MG TAB PO PRN (13:37)
[2022-03-09] MEDS ORDERED: Dextrose 5% in Water 1,000 ML IV PRN (15:39)
[2022-03-09] MEDS ORDERED: Dextrose 50% Abboject 50 ML SYRINGE SLOW IVP PRN (15:39)
[2022-03-09 16:47] LABS: Troponin I 0.025 ng/mL (< 0.028)
[2022-03-09] MEDS ORDERED: Meropenem 500 MG VIAL IVPB SCH (17:00)
[2022-03-09] MEDS: Ferrous Sulfate 325 MG TAB PO SCH (17:50)
[2022-03-09 18:47] LABS: Troponin I 0.021 ng/mL (< 0.028)
[2022-03-09] MEDS ORDERED: Atorvastatin Calcium 10 MG TAB PO SCH (21:00)
[2022-03-09] MEDS: Meropenem 500 MG in Sodium Chloride 0.9% 100 ML IVPB SCH (21:19)
[2022-03-09] MEDS: Apixaban 2.5 MG TAB PO SCH (21:25)
[2022-03-09] MEDS: DorzolamidE/Timolol 2%/0.5% Ophth Soln 10 ml Bottle L EYE SCH (21:25)
[2022-03-09] MEDS: Timolol 0.5% Ophth Soln 5 ml Bottle EA EYE SCH (21:26)
[2022-03-10 03:53] VITALS: BMI 24.5
[2022-03-10 04:35] LABS: #Eosinphils 0.1 thou/uL (0.0-0.7); #Lymphocytes 1.2 thou/uL (1.20-3.40); #Monocytes 0.7 thou/uL (0.11-0.59); #Neutrophils 3.5 thou/uL (1.40-6.50); %Basophils 0.4 % (0.0-1.0); %Lymphocytes 22.5 % (21.0-51.0); %Monocytes 12.8 % (0.0-10.0); %Neutrophils 62.3 % (42.0-75.0); Hemoglobin 8.3 g/dL (14.0-18.0); Mean Corpuscular HGB CONC 30.2 g/dL (32.0-36.0); Mean Corpuscular Hemoglobin 25.3 pg (27.0-31.0); Mean Corpuscular Volume 83.6 fL (78.0-98.0); Mean Platelet Volume 11.4 fL (7.4-10.4); Platelet Count 158 thou/uL (130-400); RBC Distribution Width 19.2 % (11.5-14.5); Red Blood Cell (RBC) Count 3.29 mill/uL (4.70-6.10); White Blood Cell (WBC) Count 5.5 thou/uL (4.8-10.8)
[2022-03-10 04:56] LABS: Anion Gap 11 mmol/L (10-20); BUN (Urea Nitrogen) 4 mg/dL (8.4-25.7); Calc. Creatinine Clearance 49 mL/min (70-130); Calcium 8.1 mg/dL (7.8-10.44); Carbon Dioxide 26 mmol/L (23-31); Chloride 103 mmol/L (98-107); Estimated GFR 46; Glucose 163 mg/dL (83-110); Potassium 3.3 mmol/L (3.5-5.1); Sodium 137 mmol/L (136-145)
[2022-03-10] MEDS: DorzolamidE/Timolol 2%/0.5% Ophth Soln 10 ml Bottle L EYE SCH ×2 (08:53→22:14)
[2022-03-10] MEDS: Amiodarone 200 MG TAB PO SCH (08:53)
[2022-03-10] MEDS: Polyethylene Glycol 3350 17 GM Packet PO SCH (08:53)
[2022-03-10] MEDS: Cholecalciferol 1,000 UNITS (25 MCG) TAB PO SCH (08:53)
[2022-03-10] MEDS: Ferrous Sulfate 325 MG TAB PO SCH ×2 (08:53→15:57)
[2022-03-10] MEDS: Cinacalcet HCl 30 MG TAB PO SCH (08:53)
[2022-03-10] MEDS: Apixaban 2.5 MG TAB PO SCH ×2 (08:53→22:16)
[2022-03-10] MEDS: Ezetimibe 10 MG TAB PO SCH (08:54)
[2022-03-10] MEDS: Timolol 0.5% Ophth Soln 5 ml Bottle EA EYE SCH ×2 (08:54→22:17)
[2022-03-10] MEDS ORDERED: Potassium Bicarbonate/Cit Ac 20 MEQ TAB PO SCH (09:00)
[2022-03-10] MEDS: Meropenem 500 MG in Sodium Chloride 0.9% 100 ML IVPB SCH (15:57)
[2022-03-10] MEDS: Atorvastatin Calcium 40 MG TAB PO SCH (22:16)
[2022-03-11 05:04] LABS: Anion Gap 8 mmol/L (10-20); BUN (Urea Nitrogen) 5 mg/dL (8.4-25.7); Calc. Creatinine Clearance 33 mL/min (70-130); Carbon Dioxide 30 mmol/L (23-31); Chloride 103 mmol/L (98-107); Estimated GFR 29; Glucose 78 mg/dL (83-110); Potassium 3.4 mmol/L (3.5-5.1); Sodium 138 mmol/L (136-145)
[2022-03-11] MEDS: Ferrous Sulfate 325 MG TAB PO SCH ×2 (09:16→18:06)
[2022-03-11] MEDS: Amiodarone 200 MG TAB PO SCH (09:16)
[2022-03-11] MEDS: Cinacalcet HCl 30 MG TAB PO SCH (09:17)
[2022-03-11] MEDS: Apixaban 2.5 MG TAB PO SCH ×2 (09:17→20:07)
[2022-03-11] MEDS: Polyethylene Glycol 3350 17 GM Packet PO SCH (09:17)
[2022-03-11] MEDS: Cholecalciferol 1,000 UNITS (25 MCG) TAB PO SCH (09:17)
[2022-03-11] MEDS: Ezetimibe 10 MG TAB PO SCH (09:17)
[2022-03-11] MEDS: Potassium Chloride 20 MEQ TAB PO SCH ×2 (09:17→18:06)
[2022-03-11] MEDS: DorzolamidE/Timolol 2%/0.5% Ophth Soln 10 ml Bottle L EYE SCH ×2 (09:17→20:08)
[2022-03-11] MEDS: Timolol 0.5% Ophth Soln 5 ml Bottle EA EYE SCH ×2 (09:18→20:12)
[2022-03-11] MEDS: Meropenem 500 MG in Sodium Chloride 0.9% 100 ML IVPB SCH (18:06)
[2022-03-11] MEDS: Atorvastatin Calcium 40 MG TAB PO SCH (20:07)
[2022-03-12 05:12] LABS: Anion Gap 13 mmol/L (10-20); BUN (Urea Nitrogen) 8 mg/dL (8.4-25.7); Calc. Creatinine Clearance 25 mL/min (70-130); Calcium 8.1 mg/dL (7.8-10.44); Carbon Dioxide 23 mmol/L (23-31); Chloride 106 mmol/L (98-107); Estimated GFR 21; Glucose 88 mg/dL (83-110); Potassium 5.7 mmol/L (3.5-5.1); Sodium 136 mmol/L (136-145)
[2022-03-12 08:05] LABS: #Eosinphils 0.1 thou/uL (0.0-0.7); #Lymphocytes 1.7 thou/uL (1.20-3.40); #Monocytes 0.8 thou/uL (0.11-0.59); #Neutrophils 4.3 thou/uL (1.40-6.50); %Basophils 0.4 % (0.0-1.0); %Eosinophils 1.8 % (0.0-10.0); %Lymphocytes 24.9 % (21.0-51.0); %Monocytes 10.9 % (0.0-10.0); Hemoglobin 8.7 g/dL (14.0-18.0); Mean Corpuscular Hemoglobin 25.3 pg (27.0-31.0); Mean Corpuscular Volume 84.4 fL (78.0-98.0); Mean Platelet Volume 10.6 fL (7.4-10.4); Platelet Count 180 thou/uL (130-400); RBC Distribution Width 18.8 % (11.5-14.5); Red Blood Cell (RBC) Count 3.43 mill/uL (4.70-6.10)
[2022-03-12 08:37] LABS: Hypochromia MODERATE=16-30 cells (100X) (0-5/hpf); Large Platelets SLIGHT; MDiff Complete? YES; Platelet Morphology Comment Appears Adequate; Polychromasia SLIGHT = 2-3 cells (100X) (0-2/hpf); Schistocytes SLIGHT = 2-5 cells (100X) (0-1/hpf); Target Cells SLIGHT = 2-5 cells (100X) (0-1/hpf)
[2022-03-12] MEDS: Ezetimibe 10 MG TAB PO SCH (13:45)
[2022-03-12] MEDS: Cinacalcet HCl 30 MG TAB PO SCH (13:45)
[2022-03-12] MEDS: DorzolamidE/Timolol 2%/0.5% Ophth Soln 10 ml Bottle L EYE SCH (13:45)
[2022-03-12] MEDS: Polyethylene Glycol 3350 17 GM Packet PO SCH (13:45)
[2022-03-12] MEDS: Amiodarone 200 MG TAB PO SCH (13:45)
[2022-03-12] MEDS: Timolol 0.5% Ophth Soln 5 ml Bottle EA EYE SCH (13:45)
[2022-03-12] MEDS: Apixaban 2.5 MG TAB PO SCH (13:45)
[2022-03-12] MEDS: Cholecalciferol 1,000 UNITS (25 MCG) TAB PO SCH (13:45)
[2022-03-12] MEDS: Ferrous Sulfate 325 MG TAB PO SCH (13:47)
[2022-03-12 14:32] VITALS: BP 105/88; TEMP 98.6
== END 2022-03-12 15:41 | DRG 637 ==
LOC: ERS 09:45 → ERHOLD 13:19 → 2NO 15:17
PROVIDERS: ADMIT Internal Medicine; ATTEND Internal Medicine
PROC: 5A1D70Z Performance of Urinary Filtration, Intermittent, Less than 6 Hours Per Day (ICD-10-PCS; principal; 2022-03-09)
DX: E11.649 Type 2 diabetes mellitus with hypoglycemia without coma (principal); L89.153 Pressure ulcer of sacral region, stage 3; I12.0 Hypertensive chronic kidney disease with stage 5 chronic kidney disease or end stage renal disease; I48.20 Chronic atrial fibrillation, unspecified; Z20.822 Contact with and (suspected) exposure to COVID-19; N18.6 End stage renal disease; E78.5 Hyperlipidemia, unspecified; R13.10 Dysphagia, unspecified; I25.10 Atherosclerotic heart disease of native coronary artery without angina pectoris; K21.9 Gastro-esophageal reflux disease without esophagitis; I48.91 Unspecified atrial fibrillation; E11.22 Type 2 diabetes mellitus with diabetic chronic kidney disease; E11.51 Type 2 diabetes mellitus with diabetic peripheral angiopathy without gangrene; R07.9 Chest pain, unspecified; D50.9 Iron deficiency anemia, unspecified; Z91.041 Radiographic dye allergy status; Z99.2 Dependence on renal dialysis; Z88.0 Allergy status to penicillin; Z79.899 Other long term (current) drug therapy; Z79.4 Long term (current) use of insulin; Z79.01 Long term (current) use of anticoagulants
CPT/HCPCS: 36415; 36416; 71045; 80048; 80053; 83605; 84484; 85025; 87040; 90935; 93005; 94760; 97139; G0257; J2185; J3490; J7070; U0003; U0005